=== PATIENT | male | born 1985 | race Caucasian/White ===

== ENCOUNTER 2020-09-16 20:21 | Emergency (ER) | payer OTHER, SELFPAY ==
--- NOTE | ~2020-09-16 | XR_ITS ---
EXAMINATION: XR CHEST CLINICAL INFORMATION: Bilateral lower extremity edema COMPARISON: 02/07/2011 TECHNIQUE: 2 views of the chest were obtained. FINDINGS: The lungs are well expanded. There is no focal consolidation, edema, or effusion. No pneumothorax. The cardiomediastinal silhouette is within normal limits. No acute osseous abnormality. XR/XR chest 2V IMPRESSION: No acute pulmonary finding.
[2020-09-16 20:33] VITALS: BP 167/80; PULSE 107; RESP 20; TEMP 36.8; O2SAT 95; BMI 54.6
[2020-09-16 20:48] LABS: Basophils Percent Auto 0.4 % (0-2); Eosinophils Absolute Auto 0.3 X10*3/uL (0.0-0.4); Hematocrit 36.9 % (42-52); Hemoglobin 11.4 g/dl (14.0-18.0); Imm Gran Abs Auto 0.03 X10*3/uL (0.00-0.03); Imm Gran Pct Auto 0.4 % (0.0-0.4); Lymphocytes Absolute Auto 1.3 X10*3/uL (1.2-4.9); Lymphocytes Percent Auto 15.8 % (20-40); Mean Corpuscular HGB Conc 30.9 g/dl (31.0-36.0); Mean Corpuscular Hemoglobin 26.7 pg (27.0-33.0); Mean Corpuscular Volume 86.4 fL (80-98); Mean Platelet Volume 9.7 fL (9.4-12.4); Monocytes Absolute Auto 0.7 X10*3/uL (0.1-1.2); Monocytes Percent Auto 8.1 % (2-11); Neutrophils Absolute Auto 5.8 X10*3/uL (2.0-8.3); Neutrophils Percent Auto 71.3 % (45-73); Platelet Count 205 X10*3/uL (160-400); Red Blood Count 4.27 X10*6/uL (4.60-5.80); Red Cell Distribution Width 13.7 % (11.0-16.0); White Blood Count 8.2 X10*3/uL (4.8-10.8)
[2020-09-16 20:49] LABS: MANUAL DIFF FLAG NO
[2020-09-16 21:16] LABS: Anion Gap 8 (12-20); Blood Urea Nitrogen 14 mg/dL (9-16); Calcium 8.3 mg/dL (8.4-10.2); Carbon Dioxide 33 mmol/L (22-29); Chloride 103 mmol/L (96-108); Creatinine Clr Calc Pharmacy 207.5; Estimated Glomerular Filt Rate > 60; Glucose Random 151 mg/dL (60-115); Potassium 3.8 mmol/L (3.3-5.1); Sodium 140 mmol/L (135-145)
--- NOTE | 2020-09-17 00:27 | ED.LOWEXIN ---
HPI - Extremity Injury (Lower) General Chief Complaint: Skin/Abscess/Foreign Body Stated Complaint: Foot swelling Source: patient Mode of arrival: ambulatory Limitations: no limitations History of Present Illness HPI Narrative: 34-year-old male with past medical history of morbid obesity and history of cellulitis to the lower extremities presents with left foot swelling and pain as well as dental caries and pain. He does have bilateral lower extremity edema per baseline, has a family history of CHF. He does describe some shortness of breath on exertion but feels that this could be due to body habitus rather than illness. He does not describe any chest pain or pressure, palpitations, fevers, chills, weakness, abdominal pain, abdominal distention, dysuria, and hematuria. Onset (ago): week(s) (About 2 weeks) Place: home Severity: moderate Severity scale (1-10): 5 Relieving factors: nothing Exacerbating factors: weight bearing and palpation Associated symptoms: swelling Other symptoms: none Treatments prior to arrival: NSAIDS Related Data Previous Rx's Medication Instructions Recorded cephalexin 500 mg PO QID 7 Days #28 cap 09/17/20 hydrochlorothiazide 12.5 mg PO DAILY #30 tab 09/17/20 metformin 500 mg PO BID #60 tab 09/17/20 sulfamethoxazole-trimethoprim 1 tab PO Q12H 10 Days #20 tab 09/17/20 [Bactrim DS] Allergies Allergy/AdvReac Type Severity Reaction Status Date / Time clindamycin [CLINDAMYCIN] Allergy Unknown HIVES Unverified 04/18/20 17:55 doxycycline [DOXYCYCLINE] Allergy Unknown HIVES Unverified 04/18/20 17:55 antibiotics Allergy Unknown Uncoded 03/16/12 00:00 clindamycin Allergy Unknown Uncoded 03/16/12 00:00 Clindamycin HCl Allergy Unknown Uncoded 08/19/16 00:00 Review of Systems Review of Systems: Constitutional: No Fever, No Chills ENT/Mouth: No Ear Pain, No Hoarseness, No sore throat Eyes: No Eye Pain, No Swelling, No Redness, No Foreign Body Cardiovascular: No Chest Pain, No SOB Respiratory: No Cough, No Dyspnea Gastrointestinal: No Nausea, No Vomiting, No Diarrhea, No abdominal Pain Genitourinary: No Dysuria, No Hematuria Musculoskeletal: Positive bilateral lower extremity edema, positive left foot pain, No Myalgias, No Joint Swelling Skin: No Skin lacerations, No rash Neuro: No Weakness, No Numbness, No Paresthesias, No Loss of Consciousness, No Dizziness, No Headache Psych: No Anxiety/Panic, No Depression Heme/Lymph: no easy bruising, no Lymphadenopathy Endocrine: No Polyuria, No Polydipsia Yes all other systems are reviewed and are negative [facility] Past Medical History Attestation statement: The following information was validated with the patient. Source: old records reviewed Medical History (Updated 09/17/20 @ 02:20 by Mariangel Lobo NP) Asthma Social History Social History Advance Directives: No Physical Exam Vital Signs: Vital Signs: Last Vital Signs Temp 98.2 F 09/16/20 20:33 Pulse 107 H 09/16/20 20:33 Resp 20 09/16/20 20:33 BP 167/80 H 09/16/20 20:33 Pulse Ox 95 09/16/20 20:33 Body Mass Index 54.6 Appearance: Alert. Oriented X3. No acute distress. Morbidly obese body habitus Eyes: Pupils equal, round and reactive to light. ENT: Pharynx normal. Broken tooth noted to the left lower molars, gingivitis Neck: Normal inspection. Neck supple. CVS: Normal heart rate and rhythm. Pulses normal. Respiratory: No respiratory distress. Breath sounds normal. Abdomen: Soft and nontender. Skin: 2 areas of erythema noted to the dorsal aspect of the left foot, otherwise Skin warm and dry. Normal skin color. Normal skin turgor. Extremities: positive bilateral lower extremity edema per baseline Neuro: No motor deficit. No sensory deficit. Course Course Course Narrative: 34-year-old male presents with pain to the top of his left foot with 2 areas of redness and dental pain. He has not seen a physician in quite some time, and does not have a dentist. He does have a history of cellulitis to left lower extremity, is morbidly obese, has a family history of heart failure. CBC Chem 7, BNP, and EKG troponin ordered. Troponin is negative, glucose is elevated at 151 highly suspicious for diabetes, patient is hypertensive, patient does not have a primary care physician at this time. Will start on hydrochlorothiazide, metformin, and given antibiotics for cellulitis to left lower extremity as well as dental abscess. Patient verbalized understanding of and agrees to plan of care discharge home. He does understand that he must follow up with primary care physician. MDM - Extremity Injury (Lower) MDM Narrative Medical decision making narrative: Cellulitis Medical Records Attestation: I reviewed the patient's medical records. Lab Data Attestation: I reviewed the patient's lab results. Result diagrams: 09/16/20 20:42 09/16/20 20:42 Labs: Lab Results 09/16/20 09/16/20 09/17/20 Range/Units 20:42 20:42 01:00 WBC 8.2 (4.8-10.8) X10*3/uL RBC 4.27 L (4.60-5.80) X10*6/uL Hgb 11.4 L (14.0-18.0) g/dl Hct 36.9 L (42-52) % MCV 86.4 (80-98) fL MCH 26.7 L (27.0-33.0) pg MCHC 30.9 L (31.0-36.0) g/dl RDW 13.7 (11.0-16.0) % Plt Count 205 (160-400) X10*3/uL MPV 9.7 (9.4-12.4) fL Immature Gran % (Auto) 0.4 (0.0-0.4) % Neut % (Auto) 71.3 (45-73) % Lymph % (Auto) 15.8 L (20-40) % [place] % (Auto) 8.1 (2-11) % Eos % (Auto) 4.0 (0-4) % Baso % (Auto) 0.4 (0-2) % Lymph # (Auto) 1.3 (1.2-4.9) X10*3/uL [place] # (Auto) 0.7 (0.1-1.2) X10*3/uL Eos # (Auto) 0.3 (0.0-0.4) X10*3/uL Baso # (Auto) 0.0 (0.0-0.2) X10*3/uL Abs Immat Gran (auto) 0.03 (0.00-0.03) X10*3/uL Absolute Neuts (auto) 5.8 (2.0-8.3) X10*3/uL Absolute Nucleated RBC 0.000 (0.0-0.012) X10*3/uL Nucleated RBC % (auto) 0.0 (0.0-0.2) /100WBC Sodium 140 (135-145) mmol/L Potassium 3.8 (3.3-5.1) mmol/L Chloride 103 (96-108) mmol/L Carbon Dioxide 33 H (22-29) mmol/L Anion Gap 8 L (12-20) BUN 14 (9-16) mg/dL Creatinine 0.88 (0.5-1.4) mg/dL Estim Creat Clear Calc 207.5 Estimated GFR > 60 Random Glucose 151 H (60-115) mg/dL Calcium 8.3 L (8.4-10.2) mg/dL Magnesium 2.2 (1.6-2.6) mg/dL Troponin I High Sens (<3.5-35.0) ng/L B-Natriuretic Peptide (<100) pg/mL 09/17/20 Range/Units 01:00 WBC (4.8-10.8) X10*3/uL RBC (4.60-5.80) X10*6/uL Hgb (14.0-18.0) g/dl Hct (42-52) % MCV (80-98) fL MCH (27.0-33.0) pg MCHC (31.0-36.0) g/dl RDW (11.0-16.0) % Plt Count (160-400) X10*3/uL MPV (9.4-12.4) fL Immature Gran % (Auto) (0.0-0.4) % Neut % (Auto) (45-73) % Lymph % (Auto) (20-40) % [place] % (Auto) (2-11) % Eos % (Auto) (0-4) % Baso % (Auto) (0-2) % Lymph # (Auto) (1.2-4.9) X10*3/uL [place] # (Auto) (0.1-1.2) X10*3/uL Eos # (Auto) (0.0-0.4) X10*3/uL Baso # (Auto) (0.0-0.2) X10*3/uL Abs Immat Gran (auto) (0.00-0.03) X10*3/uL Absolute Neuts (auto) (2.0-8.3) X10*3/uL Absolute Nucleated RBC (0.0-0.012) X10*3/uL Nucleated RBC % (auto) (0.0-0.2) /100WBC Sodium (135-145) mmol/L Potassium (3.3-5.1) mmol/L Chloride (96-108) mmol/L Carbon Dioxide (22-29) mmol/L Anion Gap (12-20) BUN (9-16) mg/dL Creatinine (0.5-1.4) mg/dL Estim Creat Clear Calc Estimated GFR Random Glucose (60-115) mg/dL Calcium (8.4-10.2) mg/dL Magnesium (1.6-2.6) mg/dL Troponin I High Sens 3.6 (<3.5-35.0) ng/L B-Natriuretic Peptide 50 (<100) pg/mL Imaging Data Chest x-ray: Attestation: I personally reviewed and interpreted this imaging study as follows: Radiologist's impression: EXAMINATION: XR CHEST CLINICAL INFORMATION: Bilateral lower extremity edema COMPARISON: 02/07/2011 TECHNIQUE: 2 views of the chest were obtained. FINDINGS: The lungs are well expanded. There is no focal consolidation, edema, or effusion. No pneumothorax. The cardiomediastinal silhouette is within normal limits. No acute osseous abnormality. XR/XR chest 2V IMPRESSION: No acute pulmonary finding. ECG Data Attestation: I personally reviewed and interpreted this ECG as follows: ECG interpretation date: 09/17/20 ECG interpretation time: 02:19 Prior ECG tracings: not available for review Interpretation: Vent. rate 83 BPM NH interval 146 ms QRS duration 88 ms QT/QTc 384/451 ms P-R-T axes 54 36 29 Normal sinus rhythm Normal ECG No previous ECGs available Discharge Plan Discharge Clinical Impression: Dental caries Cellulitis Qualifiers: Site of cellulitis: extremity Site of cellulitis of extremity: lower extremity Laterality: left Qualified Code(s): L03.116 - Cellulitis of left lower limb Hypertension Qualifiers: Hypertension type: essential hypertension Qualified Code(s): I10 - Essential (primary) hypertension Diabetes Qualifiers: Diabetes mellitus type: type 2 Diabetes mellitus nursing home insulin use: without nursing home use Diabetes mellitus complication status: with skin complications Diabetes mellitus complication detail: with other skin complication Qualified Code(s): E11.628 - Type 2 diabetes mellitus with other skin complications Patient Disposition: Home, Self-Care Instructions: Dental Abscess (ED), Cellulitis (ED), Type 2 Diabetes in Adults: New Diagnosis (ED), Hypertension (ED), Toothache (ED), Hypertension and Diabetes (ED), Diabetes and Nutrition (ED), Diabetes and Exercise (ED) Additional Instructions: You were evaluated for pain and swelling to the left foot, this is suspected to be cellulitis. Please take Keflex and Bactrim as directed for cellulitis. Your also evaluated for dental pain. The antibiotics that were prescribed to you for cellulitis will cover for dental. We prescribed hydrochlorothiazide for your hypertension. We prescribed metformin for diabetes. You must follow-up with primary care physician. Please follow-up with your primary care provider. Based on your lower extremity edema you may require a diuretic. Thank you for choosing this emergency department for evaluation. Please follow-up with primary care physician as needed. Return to the emergency department for any new, concerning, or worsening symptoms. Prescriptions: New sulfamethoxazole-trimethoprim [Bactrim DS] 800-160 mg tablet 1 tab PO Q12H 10 Days Qty: 20 RF: 0 cephalexin 500 mg capsule 500 mg PO QID 7 Days Qty: 28 RF: 0 hydrochlorothiazide 12.5 mg tablet 12.5 mg PO DAILY Qty: 30 RF: 0 metformin 500 mg tablet 500 mg PO BID Qty: 60 RF: 0
--- NOTE | 2020-09-17 00:29 | ECG_ITS ---
Test Reason : EDEMA Blood Pressure : / mmHG Vent. Rate : 083 BPM Atrial Rate : 083 BPM P-R Int : 146 ms QRS Dur : 088 ms QT Int : 384 ms P-R-T Axes : 054 036 029 degrees QTc Int : 451 ms Normal sinus rhythm Normal ECG No previous ECGs available Referred By: Mariangel Lobo Electronically Signed By:Oracio Person
[2020-09-17 01:29] LABS: Magnesium 2.2 mg/dL (1.6-2.6)
[2020-09-17 01:34] LABS: B Type Natriuretic Peptide 50 pg/mL (<100); Troponin-I High Sensitivity 3.6 ng/L (<3.5-35.0)
[2020-09-17] MEDS: cephALEXin 500 MG CAPSULE PO (02:19)
[2020-09-17] MEDS: Furosemide 40 MG TABLET PO (02:20)
[2020-09-17 02:21] VITALS: BP 160/78; PULSE 81; RESP 18; O2SAT 96
== END 2020-09-17 02:46 | disposition home or self-care (01) ==
PROVIDERS: Nurse Practitioner Family; Emergency Provider Internal Medicine
DX: L03.116 Cellulitis of left lower limb (principal); I10 Essential (primary) hypertension; K02.9 Dental caries, unspecified; E11.628 Type 2 diabetes mellitus with other skin complications
CPT/HCPCS: 36415; 71046; 80048; 83735; 83880; 84484; 85025; 93005; 96374; 99284

== ENCOUNTER 2020-09-21 22:55 | Emergency (ER) | payer SELFPAY ==
[2020-09-21 22:58] VITALS: BP 199/92; PULSE 87; RESP 18; TEMP 36.6; O2SAT 98; BMI 54.6
--- NOTE | 2020-09-22 00:33 | ED.EXTPRO ---
HPI - Extremity Problem General Chief complaint: Extremity Problem Stated complaint: foot infection Time Seen by Provider: 09/22/20 00:16 Source: patient Mode of arrival: ambulatory Limitations: no limitations History of Present Illness HPI Narrative: Patient comes to emergency room for wound check. Patient states he was seen here on September 17, diagnosed with cellulitis, given Bactrim. Patient states that his legs are cracking, states that they do look much better, less red, less painful, able to move them now, but wanted to get an opinion if the antibiotic is working. Patient denies fever or chills. Patient also complaining of bilateral chronic leg swelling Related Data Previous Rx's Medication Instructions Recorded cephalexin 500 mg PO QID 7 Days #28 cap 09/17/20 hydrochlorothiazide 12.5 mg PO DAILY #30 tab 09/17/20 metformin 500 mg PO BID #60 tab 09/17/20 sulfamethoxazole-trimethoprim 1 tab PO Q12H 10 Days #20 tab 09/17/20 [Bactrim DS] furosemide [Lasix] 40 mg PO BID #6 tab 09/22/20 Allergies Allergy/AdvReac Type Severity Reaction Status Date / Time clindamycin [CLINDAMYCIN] Allergy Unknown HIVES Verified 09/21/20 23:04 doxycycline [DOXYCYCLINE] Allergy Unknown HIVES Verified 09/21/20 23:04 Review of Systems Review of Systems: Constitutional : No Weight loss, No Fever, No Chills, No Night Sweats, No Fatigue, No Malaise ENT/Mouth : No Hearing loss, No Ear Pain, No Nasal Congestion, No Sinus Pain, No Hoarseness, No sore throat, No Rhinorrhea, No Swallowing Difficulty Eyes: No Eye Pain, No Swelling, No Redness, No Foreign Body, No Discharge, No Vision Changes Cardiovascular : No Chest Pain, No SOB, No Dyspnea on Exertion, No Orthopnea, No Edema, No Palpitations Respiratory : No Cough, No Sputum, No Wheezing, No Smoke Exposure, No Dyspnea Gastrointestinal : No Nausea, No Vomiting, No Diarrhea, No Constipation, No abdominal Pain, No Hematochezia, No Melena Genitourinary : no irregular bleeding, No Dysuria, No Urinary Frequency, No Hematuria, No Urinary Incontinence, No Urgency, No Flank Pain, No Urinary Flow Changes, No Hesitancy Musculoskeletal : No joint pain, No Myalgias, No Joint Swelling Skin : Complaining of skin cracking, states the redness nearly resolved Neuro : No Weakness, No Numbness, No Paresthesias, No Loss of Consciousness, No Dizziness, No Headache Psych : No Anxiety/Panic, No Depression, No SI/HI/AH/VH, No Social Issues, Heme/Lymph: No Bruising, No Bleeding,No Lymphadenopathy Endocrine : No Polyuria, No Polydipsia, No Temperature Intolerance PMFSH Past Medical History Medical History Asthma Obesity Social History Social History Advance Directives: No Advance Directives Information Provided: No Physical Exam Vital Signs: Vital Signs: Last Vital Signs Temp 98 F 09/21/20 22:58 Pulse 82 09/22/20 01:03 Resp 16 09/22/20 01:03 BP 148/70 H 09/22/20 01:03 Pulse Ox 97 09/22/20 01:03 Body Mass Index 54.6 Appearance: Alert. Oriented X3. No acute distress. Morbidly obese Eyes: Pupils equal, round and reactive to light. ENT: Pharynx normal. Neck: Normal inspection. Neck supple. No lymph nodes noted. No crepitus CVS: Normal heart rate and rhythm. Pulses normal. Normal S1 and S2 Respiratory: No respiratory distress. Breath sounds normal. No Wheezing. No rales Abdomen: Soft and nontender. No rigidity. No distention. good BS x4 Skin: Skin warm and dry. No erythema in bilateral lower extremities, mild cracking of the skin especially on the left side Extremities: +3 pitting edema bilaterally, no thigh or calf tenderness Neuro: Oriented X 3. No motor deficit. No sensory deficit. Moving all extermities. No slurred speech. Course Course Course Narrative: I discussed with the patient that the white blood cell count is within normal limits, on physical exam it looks like his foot is not infected. I discussed with the patient that he will need Lasix to start getting rid of that fluid. A1c is pending, does not run at night. Patient will follow-up with a new primary care physician, the process has already been started to be seen by a PCP MDM - Extremity (Nontraumatic) Lab Data Result diagrams: 09/22/20 00:53 09/22/20 00:53 Labs: Lab Results 09/22/20 09/22/20 Range/Units 00:53 00:53 WBC 9.3 (4.8-10.8) X10*3/uL RBC 4.25 L (4.60-5.80) X10*6/uL Hgb 11.2 L (14.0-18.0) g/dl Hct 35.8 L (42-52) % MCV 84.2 (80-98) fL MCH 26.4 L (27.0-33.0) pg MCHC 31.3 (31.0-36.0) g/dl RDW 13.6 (11.0-16.0) % Plt Count 227 (160-400) X10*3/uL MPV 10.3 (9.4-12.4) fL Immature Gran % (Auto) 0.4 (0.0-0.4) % Neut % (Auto) 70.4 (45-73) % Lymph % (Auto) 18.8 L (20-40) % [place] % (Auto) 7.5 (2-11) % Eos % (Auto) 2.5 (0-4) % Baso % (Auto) 0.4 (0-2) % Lymph # (Auto) 1.8 (1.2-4.9) X10*3/uL [place] # (Auto) 0.7 (0.1-1.2) X10*3/uL Eos # (Auto) 0.2 (0.0-0.4) X10*3/uL Baso # (Auto) 0.0 (0.0-0.2) X10*3/uL Abs Immat Gran (auto) 0.04 H (0.00-0.03) X10*3/uL Absolute Neuts (auto) 6.6 (2.0-8.3) X10*3/uL Absolute Nucleated RBC 0.000 (0.0-0.012) X10*3/uL Nucleated RBC % (auto) 0.0 (0.0-0.2) /100WBC Sodium 139 (135-145) mmol/L Potassium 3.5 (3.3-5.1) mmol/L Chloride 102 (96-108) mmol/L Carbon Dioxide 29 (22-29) mmol/L Anion Gap 12 (12-20) BUN 10 (9-16) mg/dL Creatinine 0.94 (0.5-1.4) mg/dL Estim Creat Clear Calc 194.2 Estimated GFR > 60 Random Glucose 110 (60-115) mg/dL Calcium 8.9 D (8.4-10.2) mg/dL Discharge Plan Discharge Clinical Impression: Bilateral edema of lower extremity Patient Disposition: Home, Self-Care Instructions: Leg Edema (ED) Prescriptions: New furosemide [Lasix] 40 mg tablet 40 mg PO BID Qty: 6 RF: 0 No Action sulfamethoxazole-trimethoprim [Bactrim DS] 800-160 mg tablet 1 tab PO Q12H 10 Days Qty: 20 RF: 0 cephalexin 500 mg capsule 500 mg PO QID 7 Days Qty: 28 RF: 0 hydrochlorothiazide 12.5 mg tablet 12.5 mg PO DAILY Qty: 30 RF: 0 metformin 500 mg tablet 500 mg PO BID Qty: 60 RF: 0
[2020-09-22 00:58] LABS: Basophils Percent Auto 0.4 % (0-2); Eosinophils Absolute Auto 0.2 X10*3/uL (0.0-0.4); Eosinophils Percent Auto 2.5 % (0-4); Hematocrit 35.8 % (42-52); Hemoglobin 11.2 g/dl (14.0-18.0); Imm Gran Abs Auto 0.04 X10*3/uL (0.00-0.03); Imm Gran Pct Auto 0.4 % (0.0-0.4); Lymphocytes Absolute Auto 1.8 X10*3/uL (1.2-4.9); Lymphocytes Percent Auto 18.8 % (20-40); MANUAL DIFF FLAG NO; Mean Corpuscular HGB Conc 31.3 g/dl (31.0-36.0); Mean Corpuscular Hemoglobin 26.4 pg (27.0-33.0); Mean Corpuscular Volume 84.2 fL (80-98); Mean Platelet Volume 10.3 fL (9.4-12.4); Monocytes Absolute Auto 0.7 X10*3/uL (0.1-1.2); Monocytes Percent Auto 7.5 % (2-11); Neutrophils Absolute Auto 6.6 X10*3/uL (2.0-8.3); Neutrophils Percent Auto 70.4 % (45-73); Platelet Count 227 X10*3/uL (160-400); Red Blood Count 4.25 X10*6/uL (4.60-5.80); Red Cell Distribution Width 13.6 % (11.0-16.0); White Blood Count 9.3 X10*3/uL (4.8-10.8)
[2020-09-22 01:03] VITALS: BP 148/70; PULSE 82; RESP 16; O2SAT 97
[2020-09-22 01:37] LABS: Anion Gap 12 (12-20); Blood Urea Nitrogen 10 mg/dL (9-16); Calcium 8.9 mg/dL (8.4-10.2); Carbon Dioxide 29 mmol/L (22-29); Chloride 102 mmol/L (96-108); Creatinine Clr Calc Pharmacy 194.2; Estimated Glomerular Filt Rate > 60; Glucose Random 110 mg/dL (60-115); Potassium 3.5 mmol/L (3.3-5.1); Sodium 139 mmol/L (135-145)
[2020-09-22 02:58] LABS: Estimated Average Glucose 117 mg/dL; Hemoglobin A1c % 5.7 %
== END 2020-09-22 02:54 | disposition home or self-care (01) ==
PROVIDERS: Emergency Provider Emergency Medicine
DX: R60.0 Localized edema (principal)
CPT/HCPCS: 36415; 80048; 83036; 85025; 99283

== ENCOUNTER 2020-11-07 17:54 | Emergency (ER) | payer SELFPAY ==
--- NOTE | 2020-11-07 20:26 | ED_ITS ---
HPI - Dental/Oral General Chief complaint: Dental/Oral Stated complaint: dental pain' Time Seen by Provider: 11/07/20 20:17 Source: patient Mode of arrival: ambulatory Limitations: no limitations History of Present Illness HPI Narrative: Right lower dental pain x several days. Using Motrin and topical Orajel with continued symptoms. No fevers or chills. Patient tells me he just got health insurance and so is working on getting a dentist Related Data Previous Rx's Medication Instructions Recorded cephalexin 500 mg PO QID 7 Days #28 cap 09/17/20 hydrochlorothiazide 12.5 mg PO DAILY #30 tab 09/17/20 metformin 500 mg PO BID #60 tab 09/17/20 sulfamethoxazole-trimethoprim 1 tab PO Q12H 10 Days #20 tab 09/17/20 [Bactrim DS] furosemide [Lasix] 40 mg PO BID #6 tab 09/22/20 amoxicillin 500 mg PO BID #14 tab 11/07/20 Allergies Allergy/AdvReac Type Severity Reaction Status Date / Time clindamycin [CLINDAMYCIN] Allergy Unknown HIVES Verified 09/21/20 23:04 doxycycline [DOXYCYCLINE] Allergy Unknown HIVES Verified 09/21/20 23:04 Review of Systems Review of Systems: Yes all other systems are reviewed and are negative Constitutional: Constitutional: Reports no additional constitutional complaints, Denies body ache(s), Denies chills, Denies fever(s), Denies headache(s) and Denies weakness Eyes: Eyes: Reports no additional eye complaints and Denies change in vision ENT: Reports system reviewed and no additional complaints, except as documen lizeth, Denies dizziness, Reports otalgia, Denies headache(s), Denies nasal congestion, Denies nasal discharge and Denies neck pain Cardiovascular: Cardiovascular: Reports no additional cardiovascular complaints, Denies chest pain, Denies leg edema and Denies dyspnea Respiratory: Respiratory: Reports no additional respiratory complaints, Denies cough and Denies dyspnea Gastrointestinal: Gastrointestinal: Reports no additional gastrointestinal complaints, Denies abdominal pain, Denies diarrhea, Denies nausea and Denies vomiting Genitourinary: Genitourinary: Denies urinary incontinence Musculoskeletal: Musculoskeletal: Reports no additional musculoskeletal complaints, Denies back pain, Denies arthralgias, Denies joint swelling, Denies neck pain, Denies numbness and Denies tingling Integumentary/Breasts: Skin/Breast: Reports system reviewed and no additional complaints, except as docu and Denies rash Neurologic: Reports system reviewed and no additional complaints, except as documented, Denies Abnormal speech present, Denies dizziness, Denies headache(s), Denies numbness, Denies tingling and Denies weakness PMFSH Past Medical History Attestation statement: The following information was validated with the patient. Source: old records reviewed and nursing notes reviewed Medical History Asthma Obesity Social History Social History Smoking Status: Never smoker Use of substances other than those prescribed or required for medical reasons: Yes Substance Use Type: Marijuana Advance Directives: No Advance Directives Information Provided: Yes Physical Exam Vital Signs: Vital Signs: Last Vital Signs Temp 98.3 F 11/07/20 20:29 Pulse 72 11/07/20 20:29 Resp 18 11/07/20 20:29 BP 165/82 H 11/07/20 20:29 Pulse Ox 98 11/07/20 20:29 Body Mass Index 52.6 Const: General: cooperative, healthy appearing, comfortable and no acute distress Orientation/consciousness: patient oriented x3 Limitations: no limitations HENMT: Head: Yes normal to inspection Ears: hearing grossly normal bilaterally General nose exam: Normal external nose present Face and sinus: Yes normal facial exam Mouth: Normal oral and palatal mucosa present Teeth image: 1. Erythema, swelling. No fluctuance or induration. Extensive dental caries Throat: Yes posterior oropharynx normal, Yes tonsils normal, Yes uvula midline and Yes other (no trismus) Eyes: General: appearance normal, both eyes and all related structures Pupils: Equal, round and reactive pupils present Neck: Neck: Yes normal visual inspection, Yes full ROM, Yes no lymphadenopathy, Yes no meningeal signs and Yes supple Chest: Chest palpation & inspection: normal inspection of the chest Resp: Effort & Inspection: normal respiratory effort Auscultation: clear to auscultation bilaterally Cardio: Rate: regular rate Rhythm: regular rhythm Peripheral pulses: Peripheral pulses 2+ throughout GI: Inspection: Yes normal to inspection Palpation (GI): Soft to palpation and nontender Auscultation: normal bowel sounds Back/Spine/Pelvis: Thoracic/Lumbar Spine: thoracic and lumbar spine normal to inspection Skin: General skin exam: no rashes or lesions noted Neuro: General: patient oriented x3, no meningeal signs, no focal motor deficits and normal sensation to monofilament Cranial nerves: Yes Equal, round and reactive pupils present Cognition (Neuro): normal cognition S peech: No Abnormal speech present Gait exam (Neuro): Normal gait present Motor exam (neuro): 5/5 motor strength present throughout Extrem: General: Yes normal to inspection Course Course Course Narrative: 35 yo male here with dental pain, swelling x several days. Will start on course of antibiotics and have follow-up with dental. Reviewed worrisome signs and symptoms of when to return to the emergency department. Comfortable discharge home. Discharge Plan Discharge Clinical Impression: Dental caries Patient Disposition: Home, Self-Care Instructions: Toothache (ED) Additional Instructions: Salt water gargles Topical oragel See a dentist Prescriptions: New amoxicillin 500 mg tablet 500 mg PO BID Qty: 14 RF: 0 No Action sulfamethoxazole-trimethoprim [Bactrim DS] 800-160 mg tablet 1 tab PO Q12H 10 Days Qty: 20 RF: 0 cephalexin 500 mg capsule 500 mg PO QID 7 Days Qty: 28 RF: 0 hydrochlorothiazide 12.5 mg tablet 12.5 mg PO DAILY Qty: 30 RF: 0 metformin 500 mg tablet 500 mg PO BID Qty: 60 RF: 0 furosemide [Lasix] 40 mg tablet 40 mg PO BID Qty: 6 RF: 0 Referrals: Physician,None [Primary Care Provider] - 2 days Interventions: ED Discharge Assessment Last Done: 11/07/20 20:45 Discharge Date/Time: 11/07/20 20:46
[2020-11-07 20:29] VITALS: BP 165/82; PULSE 72; RESP 18; TEMP 36.8; O2SAT 98; BMI 52.6
== END 2020-11-07 20:46 | disposition home or self-care (01) ==
PROVIDERS: Emergency Provider Emergency Medicine
DX: K08.89 Other specified disorders of teeth and supporting structures (principal); K02.9 Dental caries, unspecified; F12.90 Cannabis use, unspecified, uncomplicated
CPT/HCPCS: 99283

== ENCOUNTER 2023-07-09 18:10 | Emergency (ER) | payer SELFPAY ==
--- NOTE | ~2023-07-09 | US_ITS ---
EXAMINATION: US SCROTUM CLINICAL INFORMATION: Scrotal swelling. COMPARISON: None available. TECHNIQUE: A sonogram of the scrotum was performed assessing davis-scale appearance and color Doppler flow. Spectral Doppler analysis of the arterial and venous flow were performed in the testes bilaterally. FINDINGS: RIGHT: Right testicle measures 3.7 x 2.6 x 2.7 cm, volume 14 mL. No focal testicular parenchymal lesions are visualized. Spectral Doppler analysis of the arterial and venous flow is normal in the right testis. Right epididymal head is normal in size. Mild hydrocele, no varicoceles. Right epididymal Doppler flow is normal. Echogenic material in the right inguinal region possibly fat-containing hernia. LEFT: Left testicle measures 3.9 x 2.6 x 2.6 cm, volume 14.1 mL. No focal testicular parenchymal lesions are visualized. Spectral Doppler analysis of the arterial and venous flow is normal in the left testis. Left epididymal head is normal in size. Mild hydrocele, no varicoceles. Left epididymal Doppler flow is normal. US/US scrotum IMPRESSION: * No suspicious intratesticular mass or lesion. * Mild bilateral small hydroceles. * Echogenic material in the right inguinal region possibly fat-containing hernia.
--- NOTE | ~2023-07-09 | US_ITS ---
EXAMINATION: US SCROTUM CLINICAL INFORMATION: Scrotal swelling. COMPARISON: None available. TECHNIQUE: A sonogram of the scrotum was performed assessing davis-scale appearance and color Doppler flow. Spectral Doppler analysis of the arterial and venous flow were performed in the testes bilaterally. FINDINGS: RIGHT: Right testicle measures 3.7 x 2.6 x 2.7 cm, volume 14 mL. No focal testicular parenchymal lesions are visualized. Spectral Doppler analysis of the arterial and venous flow is normal in the right testis. Right epididymal head is normal in size. Mild hydrocele, no varicoceles. Right epididymal Doppler flow is normal. Echogenic material in the right inguinal region possibly fat-containing hernia. LEFT: Left testicle measures 3.9 x 2.6 x 2.6 cm, volume 14.1 mL. No focal testicular parenchymal lesions are visualized. Spectral Doppler analysis of the arterial and venous flow is normal in the left testis. Left epididymal head is normal in size. Mild hydrocele, no varicoceles. Left epididymal Doppler flow is normal. US/US scrotum doppler IMPRESSION: * No suspicious intratesticular mass or lesion. * Mild bilateral small hydroceles. * Echogenic material in the right inguinal region possibly fat-containing hernia.
--- NOTE | ~2023-07-09 | CT_ITS ---
EXAMINATION: CT ANGIOGRAM OF THE CHEST WITH AND WITHOUT CONTRAST (CT PULMONARY ANGIOGRAM FOR PE) CLINICAL INFORMATION: Reason for Exam SOB, tachycardia, LE swelling COMPARISON: Chest x-ray July 09, 2023 TECHNIQUE: Prior to contrast administration, noncontrast localization images were obtained. Subsequently, multidetector volumetric imaging was performed from the thoracic inlet to below the diaphragms following the administration of 100 mL Omnipaque 350 intravenous contrast. No contrast reaction reported Sagittal, coronal, and MIP oblique sagittal reformatted images were obtained on the CT workstation, uploaded to PACS, and reviewed. This CT examination was performed using dose optimization techniques as appropriate, variously including the following: *Automated exposure control *Adjustment of mA and/or kV according to patient size (this includes techniques or standardized protocols for targeted exams where dose is matched to indication/reason for exam; i.e. extremities or head) *Use of iterative reconstruction technique Total exam dose-length product 370 mGy-cm FINDINGS: QUALITY OF STUDY/CONTRAST BOLUS: Satisfactory. PULMONARY ARTERIES: No pulmonary emboli. THORACIC AORTA: No aneurysm. LUNG: Small focus of consolidation or atelectasis at the dependent posterior right lung base. Lungs are otherwise normally aerated. PLEURA: Small dependent right pleural effusion. MEDIASTINUM: Normal heart size. No pericardial effusion. No hilar or mediastinal lymphadenopathy. No evidence of septal bowing or right heart strain. CORONARY ARTERY CALCIFICATION: None visualized on this study. CHEST WALL/AXILLA: No axillary or internal mammary lymphadenopathy. OSSEOUS STRUCTURES: No acute or suspicious osseous abnormality. Multilevel degenerative spondylosis spine. UPPER ABDOMEN: Unremarkable. No reflux of contrast into the hepatic veins to suggest elevated right heart pressures. CT/CT angio chest PE protocol IMPRESSION: 1. No evidence of pulmonary embolism. 2. Small focus of consolidation or atelectasis at the dependent posterior right lung base. 3. Small dependent right pleural effusion. VTE: negative.
--- NOTE | ~2023-07-09 | XR_ITS ---
EXAMINATION: XR CHEST CLINICAL INFORMATION: Chest pain COMPARISON: Chest 09/17/2020 TECHNIQUE: 2 views of the chest were obtained. FINDINGS: The lungs are expanded with no acute pneumonic process seen. Heart size is borderline normal. Pulmonary vascularity is prominent but no congestion seen. No gross bony abnormality. XR/XR chest 2V IMPRESSION: Mild prominence of pulmonary vascularity but no congestion seen. No change from 09/17/2020
--- NOTE | ~2023-07-09 | US_ITS ---
EXAMINATION: US VENOUS ULTRASOUND WITH DOPPLER LOWER EXTREMITY, BILATERAL CLINICAL INFORMATION: Bilateral neck swelling COMPARISON: None available. TECHNIQUE: Ultrasound of the deep veins is performed from the hip to the calf with compression sonography and color and pulse Doppler assessment. Spectral analysis with color-flow imaging is performed. FINDINGS: RIGHT: There is normal venous compression and respiratory variation and augmented flow. The visualized common femoral vein, superficial femoral vein, profunda femoral vein, popliteal vein, and the trifurcation region shows no evidence of deep venous thrombosis. There is no significant popliteal fossa cyst. Mildly prominent right inguinal lymph node 2.1 cm somewhat thickened cortex 3 mm. LEFT: There is normal venous compression and respiratory variation and augmented flow. The visualized common femoral vein, superficial femoral vein, profunda femoral vein, popliteal vein, and the trifurcation region shows no evidence of deep venous thrombosis. There is no significant popliteal fossa cyst. Mildly prominent left inguinal lymph node 2 cm. Indistinct hilum. If the patient's symptoms persist, followup ultrasound in 5 days 7 days might be of value to exclude proximal propagation from a non-visualized calf vein. US/US venous duplex LE BI IMPRESSION: Exam somewhat limited by patient's body habitus. * No DVT demonstrated in the bilateral lower extremity. * Mildly prominent enlarged bilateral inguinal lymph nodes. Clinical correlation and follow-up recommended.
[2023-07-09 19:05] VITALS: BP 189/112; PULSE 92; RESP 22; TEMP 37.1; O2SAT 97; BMI 64.0
--- NOTE | 2023-07-09 19:09 | ED.GENADULT ---
HPI - General Adult General Chief complaint: General Medical Stated complaint: SOB, leg swelling Time Seen by Provider: 07/09/23 20:36 Source: patient and RN notes reviewed Mode of arrival: ambulatory Limitations: no limitations History of Present Illness HPI narrative: This is a 34-year-old male with past medical history of asthma and morbid obesity presenting to the emergency department for evaluation of shortness of breath x 1.5weeks, bilateral leg swelling times 3 days, and scrotal swelling since yesterday. Patient reports that over the last week and a half he has had increased shortness of breath, worsening with ambulation. He has been using his inhaler with minimal relief. He also reports that he has had bilateral leg swelling, states that he now has scrotal swelling. No testicular pain. No dysuria, hematuria, urinary frequency urgency. No concerns for any sexually transmitted infections. Denies fevers or chills. No cough or sore throat. He states that he has a hx of similar symptoms in the past and was given lasix and symptoms resolved. Denies any other complaints or concerns at this time MD complaint: Shortness of breath Onset (ago): week(s) Radiation: non-radiation Quality: aching Exacerbating factors: none Associated symptoms: denies other symptoms Treatments prior to arrival: none Related Data Previous Rx's Medication Instructions Recorded cephalexin 500 mg capsule 500 mg PO QID 7 days #28 caps 09/17/20 hydrochlorothiazide 12.5 mg tablet 12.5 mg PO DAILY #30 tabs 09/17/20 metformin 500 mg tablet 500 mg PO BID #60 tabs 09/17/20 sulfamethoxazole 800 1 tab PO Q12H 10 days #20 tabs 09/17/20 mg-trimethoprim 160 mg tablet (Bactrim DS) furosemide 40 mg tablet (Lasix) 40 mg PO BID #6 tabs 09/22/20 amoxicillin 500 mg tablet 500 mg PO BID #14 tabs 11/07/20 albuterol sulfate 2.5 mg/0.5 mL 2.5 mg (0.5 mL) inhalation Q20M 07/10/23 solution for nebulization #30 ea albuterol sulfate 90 mcg/actuation 2 puff inhalation QID PRN 07/10/23 aerosol inhaler (ProAir HFA) shortness of breath or wheezing #6.7 grams furosemide 40 mg tablet (Lasix) 40 mg PO DAILY 5 days #5 tabs 07/10/23 potassium chloride 20 mEq 20 meq PO DAILY 5 days #5 tabs 07/10/23 tablet,extended release prednisone 20 mg tablet 40 mg (2 x 20 mg) PO DAILY 5 days 07/10/23 #10 tabs Allergies Allergy/AdvReac Type Severity Reaction Status Date / Time clindamycin [CLINDAMYCIN] Allergy Unknown HIVES Verified 07/09/23 19:05 doxycycline [DOXYCYCLINE] Allergy Unknown HIVES Verified 07/09/23 19:05 Review of Systems Review of Systems: Yes all other systems are reviewed and are negative Constitutional: Constitutional: Reports as per [facility] Past Medical History Attestation statement: The following information was validated with the patient. Medical History Obesity Asthma Social History Social History Substance Use Type: Marijuana Advance Directives: No Advance Directives Information Provided: No Physical Exam ED Vital Signs: Vital Signs - 24 hr 07/09/23 19:05 07/09/23 21:20 07/09/23 22:53 Temperature 98.8 F 98.4 F Pulse Rate 92 92 91 Respiratory Rate 22 H 19 18 Blood Pressure 189/112 H Pulse Oximetry 97 97 Oxygen Delivery Method Room Air Room Air 07/10/23 01:45 Temperature Pulse Rate 82 Respiratory Rate 19 Blood Pressure 187/100 H Pulse Oximetry 94 Oxygen Delivery Method Room Air BMI result Body Mass Index 64.0 Const General: cooperative, comfortable and no acute distress Orientation/consciousness: patient oriented x3 Limitations: no limitations [facility] Head: Yes normal to inspection, Yes normocephalic and Yes atraumatic Ears: hearing grossly normal bilaterally General nose exam: Normal external nose present Face and sinus: Yes normal facial exam Mouth: Normal oral and palatal mucosa present, oropharynx normal and moist mucous membranes Throat: Yes posterior oropharynx normal Eyes General: appearance normal, both eyes and all related structures Eyelids: Yes eyelids normal Conjunctivae: conjunctivae normal Sclerae: sclerae normal Pupils: Equal, round and reactive pupils present EOM: EOMs intact bilaterally Neck Neck: Yes normal visual inspection, Yes full ROM and Yes no lymphadenopathy Lymphatic: no lymphadenopathy noted Chest Chest palpation & inspection: normal inspection of the chest Resp Effort & Inspection: normal respiratory effort and able to speak in complete sentences Auscultation: clear to auscultation bilaterally, no crackles, no rales, no rhonchi and no wheezes Cardio Rate: regular rate Rhythm: regular rhythm Heart sounds: S1 normal heart sound present and S2 normal heart sound present GI Inspection: Yes normal to inspection Other: examination performed with bottle booth attendant, LIZZY Celestin present at all times. Scrotum is edematous, non erythematous, with scaling, dry, peeling skin. Skin General skin exam: no rashes or lesions noted Trauma: no lacerations or abrasions Wounds: no wounds Neuro General: patient oriented x3 and moves all extremities Cranial nerves: Yes Equal, round and reactive pupils present Extrem Other: 3+ pitting edema noted to bilateral lower extremities, no calf tenderness. No erythema noted. General: Yes normal to inspection Right upper extremity: normal to inspection Left upper extremity: normal to inspection Right lower extremity: normal to inspection Left lower extremity: normal to inspection Course Course Course Narrative: 37-year-old male presents for evaluation of leg swelling, shortness of breath, cough. He reports leg swelling up to his waist and scrotal swelling. Denies any testicular pain. Most consistent with dependent edema therefore will withhold ultrasound of scrotum is a does not seem consistent with torsion. Plan for labs, chest x-ray Reevaluation(s) Reevaluation #1: CTA chest negative, US scotum revealing hydroceles, no torsion. Time: 01:25 Reevaluation #2: Discussed this case with my attending physician, Dr. Fernandez. Walking O2 sat 94% on room air. Long discussion with patient in regards to his current workup today. Patient has dependent edema, unclear of what the etiology is. Patient has no proteinuria, and BNP is within normal limits. I discussed with patient that we can attempt to admit him for further diagnostic workup however patient would like to be discharged on Lasix. Patient reports that if his symptoms worsens, to please return to the emergency room. Patient understands and agrees with plan. Patient given Lasix, potassium, albuterol inhaler and nebulizer. Patient also given referral to manufacturing finance manager. Patient understands and agrees with plan. Patient stable for discharge. Time: 01:47 Medications Administered Discontinued Medications Generic Name Dose Route Start Last Admin Trade Name Freq PRN Reason Stop Dose Admin Albuterol/Ipratropium 3 ml 07/09/23 22:47 07/09/23 22:51 Albuterol/Iprat 2.5/0.5mg 3 Ml Ampul.Neb INHALE 07/09/23 22:48 3 ml ONCE ONE Administration Furosemide 40 mg 07/10/23 01:33 07/10/23 01:43 Furosemide 40 Mg/4 Ml Vial IVPUSH 07/10/23 01:34 40 mg STAT STA Administration Protocol Iohexol 100 ml 07/10/23 00:20 07/10/23 00:21 Iohexol 350 Mg/Ml 100 Ml Infus..Btl IV 07/10/23 00:21 100 ml ONCE ONE Administration Medical Decision Making Medical Decision Making [facility] Narrative: This is a 37-year-old male, the history of asthma, presenting to the emergency department for evaluation of shortness breath, cough, scrotal swelling, and leg swelling. Pressure 189/112, patient not hypoxic. Lungs diminished throughout all lung dawkins, some expiratory phase wheezing noted. Scrotum is also edematous, likely due to dependent edema, scrotum is nontender Does not appear to be infectious. Patient is tachycardic during all interviews, tachycardic in the 110s, 115 with shortness of breath. He has had no chest pain. Given morbid obesity, consideration for PE. Plan: Labs, chest x-ray, ultrasound lower extremities and scrotal ultrasound Differential Diagnosis Differential Diagnoses: The differential diagnosis associated with the presentation includes Dependent edema, DVT, PE, pneumonia, CHF Lab Data [facility] Lab Attestation statement: I reviewed the patient's lab results. Normocytic anemia noted with hemoglobin and hematocrit at 11.5/37.9, appears to be around his baseline. 07/09/23 19:19 07/09/23 19:19 Labs: Lab Results 07/09/23 07/09/23 07/09/23 Range/Units 19:19 21:34 22:37 WBC 10.4 (4.8-10.8) X10*3/uL RBC 4.53 L (4.60-5.80) X10*6/uL Hgb 11.5 L (14.0-18.0) g/dl Hct 37.9 L (42.0-52.0) % MCV 83.7 (80.0-98.0) fL MCH 25.4 L (27.0-33.0) pg MCHC 30.3 L (31.0-36.0) g/dl RDW 14.7 (11.0-16.0) % Plt Count 239 (160-400) X10*3/uL MPV 10.0 (9.4-12.4) fL Immature Gran % (Auto) 0.6 H (0.0-0.4) % Neut % (Auto) 76.5 H (45-73) % Lymph % (Auto) 12.8 L (20-40) % Haines % (Auto) 6.2 (2-11) % Eos % (Auto) 3.5 (0-4) % Baso % (Auto) 0.4 (0-2) % Lymph # (Auto) 1.3 (1.2-4.9) X10*3/uL Haines # (Auto) 0.7 (0.1-1.2) X10*3/uL Eos # (Auto) 0.4 (0.0-0.4) X10*3/uL Baso # (Auto) 0.0 (0.0-0.2) X10*3/uL Abs Immat Gran (auto) 0.06 H (0.00-0.03) X10*3/uL Absolute Neuts (auto) 8.0 (2.0-8.3) x10*3/uL Absolute Nucleated RBC 0.000 (0.0-0.012) X10*3/uL Nucleated RBC % (auto) 0.0 (0.0-0.2) /100WBC PT 13.5 H (11.1-13.3) SEC INR 1.1 (0.9-1.1) Sodium 141 (135-145) mmol/L Potassium 3.8 (3.3-5.1) mmol/L Chloride 109 H (96-108) mmol/L Carbon Dioxide 26 (22-29) mmol/L Anion Gap 10 L (12-20) BUN 9 (9-16) mg/dL Creatinine 0.76 (0.5-1.4) mg/dL Estim Creat Clear Calc 250.9 Estimated GFR > 60 Random Glucose 170 H (60-115) mg/dL Calcium 9.1 (8.4-10.2) mg/dL Total Bilirubin 0.6 (0.0-1.0) mg/dL AST 20 (5-37) U/L ALT 22 (0-40) U/L Alkaline Phosphatase 95 (39-117) U/L B-Natriuretic Peptide 39 (<100) pg/mL Total Protein 7.1 (6.5-8.0) g/dL Albumin 3.7 (3.5-5.0) g/dL Lipase 7 L (8-78) U/L TSH 1.01 (0.32-4.0) uIU/mL Urine Color Yellow Urine Appearance Clear Urine pH 6.0 (5.0-9.0) Ur Specific Willard 1.020 (1.005-1.025) Urine Protein Negative (Neg-Trace) mg/dL Urine Glucose (UA) Negative (Negative) mg/dL Urine Ketones Negative (Negative) mg/dL Urine Blood Negative (Negative) Urine Nitrite Negative (Negative) Ur Leukocyte Esterase Negative (Negative) Urine RBC 0-2 (0-2) /HPF Urine WBC 0-5 (0-5) /HPF Ur Squamous Epith Cells 0-2 (0-2) /HPF Urine Bacteria None Seen (None Seen) Hyaline Casts 0-2 (0-2) /LPF Influenza Type A (PCR) (Negative) Influenza Type B (PCR) (Negative) RSV RNA Qual (PCR) (Negative) SARS-CoV-2 RNA (RT-PCR) (Negative) 07/10/23 Range/Units 01:33 WBC (4.8-10.8) X10*3/uL RBC (4.60-5.80) X10*6/uL Hgb (14.0-18.0) g/dl Hct (42.0-52.0) % MCV (80.0-98.0) fL MCH (27.0-33.0) pg MCHC (31.0-36.0) g/dl RDW (11.0-16.0) % Plt Count (160-400) X10*3/uL MPV (9.4-12.4) fL Immature Gran % (Auto) (0.0-0.4) % Neut % (Auto) (45-73) % Lymph % (Auto) (20-40) % Haines % (Auto) (2-11) % Eos % (Auto) (0-4) % Baso % (Auto) (0-2) % Lymph # (Auto) (1.2-4.9) X10*3/uL Haines # (Auto) (0.1-1.2) X10*3/uL Eos # (Auto) (0.0-0.4) X10*3/uL Baso # (Auto) (0.0-0.2) X10*3/uL Abs Immat Gran (auto) (0.00-0.03) X10*3/uL Absolute Neuts (auto) (2.0-8.3) x10*3/uL Absolute Nucleated RBC (0.0-0.012) X10*3/uL Nucleated RBC % (auto) (0.0-0.2) /100WBC PT (11.1-13.3) SEC INR (0.9-1.1) Sodium (135-145) mmol/L Potassium (3.3-5.1) mmol/L Chloride (96-108) mmol/L Carbon Dioxide (22-29) mmol/L Anion Gap (12-20) BUN (9-16) mg/dL Creatinine (0.5-1.4) mg/dL Estim Creat Clear Calc Estimated GFR Random Glucose (60-115) mg/dL Calcium (8.4-10.2) mg/dL Total Bilirubin (0.0-1.0) mg/dL AST (5-37) U/L ALT (0-40) U/L Alkaline Phosphatase (39-117) U/L B-Natriuretic Peptide (<100) pg/mL Total Protein (6.5-8.0) g/dL Albumin (3.5-5.0) g/dL Lipase (8-78) U/L TSH (0.32-4.0) uIU/mL Urine Color Urine Appearance Urine pH (5.0-9.0) Ur Specific Willard (1.005-1.025) Urine Protein (Neg-Trace) mg/dL Urine Glucose (UA) (Negative) mg/dL Urine Ketones (Negative) mg/dL Urine Blood (Negative) Urine Nitrite (Negative) Ur Leukocyte Esterase (Negative) Urine RBC (0-2) /HPF Urine WBC (0-5) /HPF Ur Squamous Epith Cells (0-2) /HPF Urine Bacteria (None Seen) Hyaline Casts (0-2) /LPF Influenza Type A (PCR) NEGATIVE (Negative) Influenza Type B (PCR) NEGATIVE (Negative) RSV RNA Qual (PCR) NEGATIVE (Negative) SARS-CoV-2 RNA (RT-PCR) NEGATIVE (Negative) Radiology Impression Discussion of test interpretation with radiology: I have reviewed the radiologist's reading. Radiologist Impression: EXAMINATION: CT ANGIOGRAM OF THE CHEST WITH AND WITHOUT CONTRAST (CT PULMONARY ANGIOGRAM FOR PE) CLINICAL INFORMATION: Reason for Exam SOB, tachycardia, LE swelling COMPARISON: Chest x-ray July 09, 2023 TECHNIQUE: Prior to contrast administration, noncontrast localization images were obtained. Subsequently, multidetector volumetric imaging was performed from the thoracic inlet to below the diaphragms following the administration of 100 mL Omnipaque 350 intravenous contrast. No contrast reaction reported Sagittal, coronal, and MIP oblique sagittal reformatted images were obtained on the CT workstation, uploaded to PACS, and reviewed. This CT examination was performed using dose optimization techniques as appropriate, variously including the following: *Automated exposure control *Adjustment of mA and/or kV according to patient size (this includes techniques or standardized protocols for targeted exams where dose is matched to indication/reason for exam; i.e. extremities or head) *Use of iterative reconstruction technique Total exam dose-length product 370 mGy-cm FINDINGS: QUALITY OF STUDY/CONTRAST BOLUS: Satisfactory. PULMONARY ARTERIES: No pulmonary emboli. THORACIC AORTA: No aneurysm. LUNG: Small focus of consolidation or atelectasis at the dependent posterior right lung base. Lungs are otherwise normally aerated. PLEURA: Small dependent right pleural effusion. MEDIASTINUM: Normal heart size. No pericardial effusion. No hilar or mediastinal lymphadenopathy. No evidence of septal bowing or right heart strain. CORONARY ARTERY CALCIFICATION: None visualized on this study. CHEST WALL/AXILLA: No axillary or internal mammary lymphadenopathy. OSSEOUS STRUCTURES: No acute or suspicious osseous abnormality. Multilevel degenerative spondylosis spine. UPPER ABDOMEN: Unremarkable. No reflux of contrast into the hepatic veins to suggest elevated right heart pressures. CT/CT angio chest PE protocol IMPRESSION: 1. No evidence of pulmonary embolism. 2. Small focus of consolidation or atelectasis at the dependent posterior right lung base. 3. Small dependent right pleural effusion. VTE: negative. Dictated By: Cam Romero MD EXAMINATION: XR CHEST CLINICAL INFORMATION: Chest pain COMPARISON: Chest 09/17/2020 TECHNIQUE: 2 views of the chest were obtained. FINDINGS: The lungs are expanded with no acute pneumonic process seen. Heart size is borderline normal. Pulmonary vascularity is prominent but no congestion seen. No gross bony abnormality. XR/XR chest 2V IMPRESSION: Mild prominence of pulmonary vascularity but no congestion seen. No change from 09/17/2020 Dictated By: Jaspal Pond MD Discharge Plan Discharge Clinical Impression: Dependent edema, Hydrocele, Asthma Patient Disposition: Home, Self-Care Instructions: Leg Edema (ED) Additional Instructions: You were seen in the emergency department due to swelling in your legs and scrotum. Your ultrasound of your legs not show a blood clot, your scrotal ultrasound showed hydroceles. You have swelling in your legs which we are giving you a medication called Lasix to help get rid of this fluid. It is unclear what is causing you to have this symptom, please follow-up with your primary care physician for further workup. If any new or worsening symptoms occur including but not limited to chest pain or shortness breath, please return for re-evaluation Prescriptions: New furosemide [Lasix] 40 mg tablet 40 mg PO DAILY 5 Days Qty: 5 0RF potassium chloride 20 mEq tablet extended release 20 meq PO DAILY 5 Days Qty: 5 0RF albuterol sulfate [ProAir HFA] 90 mcg/actuation HFA aerosol inhaler 2 puff inhalation QID PRN (Reason: shortness of breath or wheezing) Qty: 6.7 0RF albuterol sulfate 2.5 mg/0.5 mL solution for nebulization 2.5 mg inhalation Q20M Qty: 30 0RF Rx Instructions: for up to 3 doses prednisone 20 mg tablet 40 mg PO DAILY 5 Days Qty: 10 0RF No Action sulfamethoxazole-trimethoprim [Bactrim DS] 800-160 mg tablet 1 tab PO Q12H 10 Days Qty: 20 0RF cephalexin 500 mg capsule 500 mg PO QID 7 Days Qty: 28 0RF hydrochlorothiazide 12.5 mg tablet 12.5 mg PO DAILY Qty: 30 0RF metformin 500 mg tablet 500 mg PO BID Qty: 60 0RF furosemide [Lasix] 40 mg tablet 40 mg PO BID Qty: 6 0RF amoxicillin 500 mg tablet 500 mg PO BID Qty: 14 0RF Referrals: [facility] [place] Pulmonology Services [Provider Group] [facility] [place] Urology Services [Provider Group] Discharge Date/Time: 07/10/23 02:40
[2023-07-09 19:24] LABS: MANUAL DIFF FLAG NO
[2023-07-09 19:31] LABS: Basophils Percent Auto 0.4 % (0-2); Eosinophils Absolute Auto 0.4 X10*3/uL (0.0-0.4); Eosinophils Percent Auto 3.5 % (0-4); Hematocrit 37.9 % (42.0-52.0); Hemoglobin 11.5 g/dl (14.0-18.0); Imm Gran Abs Auto 0.06 X10*3/uL (0.00-0.03); Imm Gran Pct Auto 0.6 % (0.0-0.4); Lymphocytes Absolute Auto 1.3 X10*3/uL (1.2-4.9); Lymphocytes Percent Auto 12.8 % (20-40); Mean Corpuscular HGB Conc 30.3 g/dl (31.0-36.0); Mean Corpuscular Hemoglobin 25.4 pg (27.0-33.0); Mean Corpuscular Volume 83.7 fL (80.0-98.0); Monocytes Absolute Auto 0.7 X10*3/uL (0.1-1.2); Monocytes Percent Auto 6.2 % (2-11); Neutrophils Percent Auto 76.5 % (45-73); Platelet Count 239 X10*3/uL (160-400); Red Blood Count 4.53 X10*6/uL (4.60-5.80); Red Cell Distribution Width 14.7 % (11.0-16.0); White Blood Count 10.4 X10*3/uL (4.8-10.8)
[2023-07-09 19:39] LABS: Alanine Aminotransferase 22 U/L (0-40); Albumin Level 3.7 g/dL (3.5-5.0); Alkaline Phosphatase 95 U/L (39-117); Anion Gap 10 (12-20); Aspartate Amino Transferase 20 U/L (5-37); Bilirubin Total 0.6 mg/dL (0.0-1.0); Blood Urea Nitrogen 9 mg/dL (9-16); Calcium 9.1 mg/dL (8.4-10.2); Carbon Dioxide 26 mmol/L (22-29); Chloride 109 mmol/L (96-108); Creatinine Clr Calc Pharmacy 250.9; Estimated Glomerular Filt Rate > 60; Glucose Random 170 mg/dL (60-115); Lipase 7 U/L (8-78); Potassium 3.8 mmol/L (3.3-5.1); Sodium 141 mmol/L (135-145); Total Protein 7.1 g/dL (6.5-8.0)
[2023-07-09 19:45] LABS: B Type Natriuretic Peptide 39 pg/mL (<100)
--- NOTE | 2023-07-09 20:29 | PC.NURSE ---
pt attempted to provide urine sample. pt returned to exam room 5 where he was noted to be diaphoretic, and short of breath- pt SpO2 93-94% on RA sitting. improved to 96-98% on RA in semi-ahn position. pt changed into hospital attiRe 20G Iv placed in R- AC, restaurant culinary manager applied- awaiting XR result and provider eval call lynn within reach
[2023-07-09 21:20] VITALS: PULSE 92; RESP 19; TEMP 36.9; O2SAT 97
[2023-07-09 21:45] LABS: INTERNATIONAL NORM RATIO 1.1 (0.9-1.1); Prothrombin Time 13.5 SEC (11.1-13.3)
[2023-07-09 22:49] LABS: Appearance Urine Clear; Color Urine Yellow; Glucose Urine UA Negative (Negative); Leukocyte Esterase Urine Negative (Negative); Nitrite Urine Negative (Negative); Urine Blood Negative (Negative); Urine Ketones Negative (Negative); Urine Protein Negative (Neg-Trace)
[2023-07-09] MEDS: Albuterol/Iprat 2.5/0.5MG 3 ML AMPUL.NEB INHALE (22:51)
[2023-07-09 22:52] LABS: Bacteria Urine None Seen (None Seen); Hyaline Casts Urine 0-2 /LPF (0-2); RBC Urine 0-2 /HPF (0-2); Squamous Epithelial Cell Urine 0-2 /HPF (0-2); WBC Urine 0-5 /HPF (0-5)
[2023-07-09 22:53] VITALS: PULSE 91; RESP 18; O2SAT 97
[2023-07-10] MEDS: iohexoL 350 MG/ML 100 ML INFUS..BTL IV (00:21)
[2023-07-10] MEDS: Furosemide 40 MG/4 ML VIAL IVPUSH (01:43)
[2023-07-10 01:45] VITALS: BP 187/100; PULSE 82; RESP 19; O2SAT 94
--- NOTE | 2023-07-10 01:55 | PC.NURSE ---
patient amubalted down hallway about 25 feet, o2 sat monitoring on room air, patient sats stayed between 91 and 94% during ambulation
[2023-07-10 02:10] LABS: Thyroid Stimulating Hormone 1.01 uIU/mL (0.32-4.0)
[2023-07-10 02:18] LABS: Influenza A PCR NEGATIVE (Negative); Influenza B PCR NEGATIVE (Negative); Resp Syncy Virus RNA Qual PCR NEGATIVE (Negative); SARS COV2 PCR INHOUSE NEGATIVE (Negative)
== END 2023-07-10 02:40 | disposition home or self-care (01) ==
PROVIDERS: Physician Assistant; Physician Assistant Medical; Emergency Provider Emergency Medicine
DX: R06.02 Shortness of breath (principal); R60.0 Localized edema; N43.3 Hydrocele, unspecified; R07.89 Other chest pain; N50.89 Other specified disorders of the male genital organs; R00.0 Tachycardia, unspecified; M54.2 Cervicalgia; J45.909 Unspecified asthma, uncomplicated; Z20.822 Contact with and (suspected) exposure to COVID-19; Z20.828 Contact with and (suspected) exposure to other viral communicable diseases; Z79.899 Other long term (current) drug therapy
CPT/HCPCS: 0241U; 36415; 71046; 71275; 76870; 80053; 81001; 83690; 83880; 84443; 85025; 85610; 93970; 93975; 94640; 96374; 99284; J1940; Q9967

== ENCOUNTER 2023-09-13 09:08 | Emergency (ER) | payer SELFPAY ==
--- NOTE | ~2023-09-13 | US_ITS ---
EXAMINATION: US VENOUS ULTRASOUND WITH DOPPLER LOWER EXTREMITY, BILATERAL CLINICAL INFORMATION: Pain, swelling COMPARISON: None available. TECHNIQUE: Ultrasound of the deep veins is performed from the hip to the calf with compression sonography and color and pulse Doppler assessment. Spectral analysis with color-flow imaging is performed. Extremely limited study due to patient body habitus. FINDINGS: RIGHT: There is normal venous compression and respiratory variation and augmented flow. The visualized common femoral vein, superficial femoral vein, profunda femoral vein, popliteal vein, and posterior tibial vein no evidence of deep venous thrombosis. The peroneal vein is not seen. LEFT: There is normal venous compression and respiratory variation and augmented flow. The visualized common femoral vein, superficial femoral vein, profunda femoral vein, popliteal vein, and the posterior tibial vein shows no evidence of deep venous thrombosis. The peroneal vein is not seen. US/US venous duplex LE BI IMPRESSION: No DVT demonstrated in the right and left lower extremity.
--- NOTE | ~2023-09-13 | XR_ITS ---
EXAMINATION: XR CHEST CLINICAL INFORMATION: Difficulty breathing. COMPARISON: CXR from 07/09/2023. Chest CT from 07/10/2023. TECHNIQUE: Frontal view of the chest was obtained. FINDINGS: Lungs are well expanded. A linear opacity in the right lung apex appears to represent atelectasis. No consolidation, pleural effusion or pneumothorax. Cardiac silhouette is in the normal size range. The prominence of central pulmonary vessels remain similar in appearance compared to 07/09/2023. No overt edema. The visualized bones are intact. XR/XR chest 1V IMPRESSION: There appears to be pulmonary vascular congestion without overt edema.
[2023-09-13 09:13] VITALS: BP 219/118; PULSE 89; RESP 20; TEMP 36.9; O2SAT 97; BMI 65.6
--- NOTE | 2023-09-13 09:20 | ECG_ITS ---
Test Reason : DIFF BREATHING Blood Pressure : / mmHG Vent. Rate : 090 BPM Atrial Rate : 090 BPM P-R Int : 152 ms QRS Dur : 092 ms QT Int : 398 ms P-R-T Axes : 054 028 045 degrees QTc Int : 486 ms Normal sinus rhythm Prolonged QT Abnormal ECG When compared with ECG of 17-SEP-2020 02:19, Non-specific change in ST segment in Lateral leads Referred By: Nova Fernandez Electronically Signed By:Oracio Person
--- NOTE | 2023-09-13 09:46 | ED.SOB ---
HPI - SOB/Dyspnea General Chief Complaint: Dyspnea Stated Complaint: R leg swelling Time Seen by Provider: 09/13/23 09:21 Source: patient Mode of arrival: ambulatory Limitations: no limitations History of Present Illness HPI Narrative: 37 yo male who does not have current health insurance or a pending open [place] application so he doesn't have a PCP has known LE edema, asthma was seen here in July - ran out of inhaler, c/o leg swelling, dyspnea and scrotal swelling. He responded well to lasix and INH / prednisone. He returns for 1 week [facility]ILL[facility], recurrent edema and running out of inhaler. He has no chest pain. He states he has anxiety when he comes here. MD elicited complaint: shortness of breath Pertinent past history: asthma Onset (ago): week(s) (1) Context: occurred during exertion Timing: progressively worsening Severity: moderate Exacerbating factors: lying flat and exertion Relieving factors: rest Known history of: asthma Associated symptoms: other (edema, swelling to scrotum) Treatment prior to arrival: none Related Data Previous Rx's Medication Instructions Recorded cephalexin 500 mg capsule 500 mg PO QID 7 days #28 caps 09/17/20 hydrochlorothiazide 12.5 mg tablet 12.5 mg PO DAILY #30 tabs 09/17/20 metformin 500 mg tablet 500 mg PO BID #60 tabs 09/17/20 sulfamethoxazole 800 1 tab PO Q12H 10 days #20 tabs 09/17/20 mg-trimethoprim 160 mg tablet (Bactrim DS) furosemide 40 mg tablet (Lasix) 40 mg PO BID #6 tabs 09/22/20 amoxicillin 500 mg tablet 500 mg PO BID #14 tabs 11/07/20 albuterol sulfate 2.5 mg/0.5 mL 2.5 mg (0.5 mL) inhalation Q20M 07/10/23 solution for nebulization #30 ea albuterol sulfate 90 mcg/actuation 2 puff inhalation QID PRN 07/10/23 aerosol inhaler (ProAir HFA) shortness of breath or wheezing #6.7 grams furosemide 40 mg tablet (Lasix) 40 mg PO DAILY 5 days #5 tabs 07/10/23 potassium chloride 20 mEq 20 meq PO DAILY 5 days #5 tabs 07/10/23 tablet,extended release prednisone 20 mg tablet 40 mg (2 x 20 mg) PO DAILY 5 days 07/10/23 #10 tabs albuterol sulfate 90 mcg/actuation 2 puff inhalation QID PRN 09/13/23 aerosol inhaler shortness of breath or wheezing #6.7 grams furosemide 40 mg tablet (Lasix) 40 mg PO DAILY #30 tabs 09/13/23 hydroxyzine HCl 25 mg tablet 25 mg PO BID PRN anxiety #20 tabs 09/13/23 prednisone 20 mg tablet 40 mg (2 x 20 mg) PO DAILY 5 days 09/13/23 #10 tabs Allergies Allergy/AdvReac Type Severity Reaction Status Date / Time clindamycin [CLINDAMYCIN] Allergy Unknown HIVES Verified 09/13/23 09:20 doxycycline [DOXYCYCLINE] Allergy Unknown HIVES Verified 09/13/23 09:20 Review of Systems Review of Systems: Constitutional : No Fever, No Chills ENT/Mouth : No sore throat, No Rhinorrhea, No Swallowing Difficulty Eyes: No Eye Pain, No Swelling, No Redness Cardiovascular : No Chest Pain, positive SOB, pos Orthopnea, positive Edema Respiratory : No Cough, No Sputum, No Wheezing, positive dyspnea Gastrointestinal : No Nausea, No Vomiting, No Diarrhea, No abdominal Pain, No Hematochezia, No Melena Genitourinary : No Dysuria, No Urinary Frequency, No Hematuria Musculoskeletal : No joint pain, No Myalgias Skin : No Skin Lesions, No rash Neuro : No Weakness, No Numbness, No Dizziness, No Headache Psych : pos Anxiety/Panic, No Depression Heme/Lymph: No Bruising, No Lymphadenopathy Endocrine : No Polyuria, No Polydipsia All other systems reviewed and are negative PMFSH Past Medical History Attestation statement: The following information was validated with the patient. Source: old records reviewed Medical History Obesity Asthma Social History Social History (Updated 09/13/23 @ 09:56 by Nova Fernandez DO) Patient Tobacco Use Status: Never used Tobacco Smoked in Last 30 Days: No Use of substances other than those prescribed or required for medical reasons: No Substance Use Type: Marijuana Advance Directives: No Advance Directives Information Provided: No Physical Exam Vital Signs: Vital Signs: Last Vital Signs Temp 97.9 F 09/13/23 10:20 Pulse 87 09/13/23 10:20 Resp 16 09/13/23 10:20 BP 182/92 H 09/13/23 10:20 Pulse Ox 94 09/13/23 10:20 O2 Del Method Room Air 09/13/23 10:20 BMI result Body Mass Index 65.6 Appearance: Alert. Oriented X3. No acute distress. Anxious Eyes: Pupils equal, round and reactive to light. ENT: Pharynx normal. Neck: Normal inspection. Neck supple. CVS: Normal heart rate and rhythm. Pulses normal. Respiratory: No respiratory distress. Breath sounds diminished Abdomen: Soft and nontender. Skin: Skin warm and dry. Normal skin color. Normal skin turgor. Extremities: 2+pitting lower extremity edema up to scrotum no signs of cellulitis. No calf ttp Neuro: Oriented X 3. No motor deficit. No sensory deficit. Medications Administered Discontinued Medications Generic Name Dose Route Start Last Admin Trade Name Freq PRN Reason Stop Dose Admin Albuterol/Ipratropium 3 ml 09/13/23 09:46 09/13/23 09:49 Albuterol/Iprat 2.5/0.5mg 3 Ml Ampul.Neb INHALE 09/13/23 09:47 3 ml ONCE ONE Administration Furosemide 40 mg 09/13/23 09:37 09/13/23 09:49 Furosemide 40 Mg/4 Ml Vial IVPUSH 09/13/23 09:38 40 mg STAT STA Administration Protocol Lorazepam 1 mg 09/13/23 09:37 09/13/23 09:49 Lorazepam 1 Mg Tablet PO 09/13/23 09:38 1 mg ONCE ONE Administration Methylprednisolone Sodium Succinate 60 mg 09/13/23 09:37 09/13/23 09:49 Methylprednisolone Sod Succ 125 Mg/2 Ml Vial IVPUSH 09/13/23 09:38 60 mg ONCE ONE Administration Medical Decision Making Medical Decision Making MDM Narrative: 37 yo male with PMH of asthma ran out of inhaler, chronic edema with hx of responding to lasix with normal BNP - now here today with recurrence of symptoms ran out of inhaler, did well with lasix but has no PCP to prescribe it. Had full workup last time he was here in July - BNP negative, TSH normal, DVT negative CXR negative at this time will repeat labs, DVT study, bronch protocol, IV steroids and IV lasix. He has no signs of infection and he is able to urinate. Pending workup may need to go home with chronic diuretic and inhalers until he can get PCP Differential Diagnosis Differential Diagnoses: The differential diagnosis associated with the presentation includes asthma, edema, CHF, DVT Admission/Observation Consideration of admission/observation: Escalation of care including admission/observation considered no hypoxia feels much better BP is coming down able to urinate no DVT trop normal at this time can be managed with home medications chronic issue no acute hypoxia can be started on outpatinet oral medications and INH Lab Data MDM Lab Attestation statement: I reviewed the patient's lab results. 09/13/23 09:42 09/13/23 09:42 Labs: Lab Results 09/13/23 Range/Units 09:42 WBC 8.6 (4.8-10.8) X10*3/uL RBC 4.41 L (4.60-5.80) X10*6/uL Hgb 10.9 L (14.0-18.0) g/dl Hct 35.2 L (42.0-52.0) % MCV 79.8 L (80.0-98.0) fL MCH 24.7 L (27.0-33.0) pg MCHC 31.0 (31.0-36.0) g/dl RDW 15.9 (11.0-16.0) % Plt Count 239 (160-400) X10*3/uL MPV 10.1 (9.4-12.4) fL Immature Gran % (Auto) 1.0 H (0.0-0.4) % Neut % (Auto) 77.0 H (45-73) % Lymph % (Auto) 13.2 L (20-40) % [place] % (Auto) 7.5 (2-11) % Eos % (Auto) 0.8 (0-4) % Baso % (Auto) 0.5 (0-2) % Lymph # (Auto) 1.1 L (1.2-4.9) X10*3/uL [place] # (Auto) 0.7 (0.1-1.2) X10*3/uL Eos # (Auto) 0.1 (0.0-0.4) X10*3/uL Baso # (Auto) 0.0 (0.0-0.2) X10*3/uL Abs Immat Gran (auto) 0.09 H (0.00-0.03) X10*3/uL Absolute Neuts (auto) 6.7 (2.0-8.3) x10*3/uL Absolute Nucleated RBC 0.000 (0.0-0.012) X10*3/uL Nucleated RBC % (auto) 0.0 (0.0-0.2) /100WBC Sodium 141 (135-145) mmol/L Potassium 3.9 (3.3-5.1) mmol/L Chloride 104 (96-108) mmol/L Carbon Dioxide 31 H (22-29) mmol/L Anion Gap 10 L (12-20) BUN 7 L (9-16) mg/dL Creatinine 0.77 (0.5-1.4) mg/dL Estim Creat Clear Calc 251.7 Estimated GFR > 60 Random Glucose 136 H (60-115) mg/dL Calcium 9.0 (8.4-10.2) mg/dL Total Bilirubin 0.8 (0.0-1.0) mg/dL AST 15 (5-37) U/L ALT 14 (0-40) U/L Alkaline Phosphatase 91 (39-117) U/L Troponin I High Sens < 2.7 (<3.5-35.0) ng/L B-Natriuretic Peptide 123 H (<100) pg/mL Total Protein 7.2 (6.5-8.0) g/dL Albumin 3.9 (3.5-5.0) g/dL Independent Interpretation I performed an independent interpretation of an: EKG, Plain X-Ray (mild congestion) and Ultrasound (no DVT) Interpretation: Rate: 90 Rhythm: NSR [place]: normal Normal P waves. Normal ALFIE. Normal QRS complex. ST T wave : normal no BRAXTON qTC: 486 prior studies: no acute ischemia The study has been interpreted contemporaneously by me. . Radiology Impression Discussion of test interpretation with radiology: I have reviewed the radiologist's reading. External Record Review External record reviewed: Inpatient record Prescription Management I considered prescription management with: Other Discharge Plan Discharge Clinical Impression: Leg edema, Acute dyspnea Asthma with exacerbation Qualifiers: Asthma severity: moderate Asthma persistence: persistent Qualified Code(s): J45.41 - Moderate persistent asthma with (acute) exacerbation Patient Disposition: Home, Self-Care Instructions: Asthma (ED), Leg Edema (ED), Edema (ED) Additional Instructions: please go to the [facility] you need a primary care doctor. return for worsening symptoms, pain, difficulty breathing or any other concerns. your swelling needs to be managed daily. this needs close follow up the medications can affect your kidneys and potassium [facility] - [phone] please call and make appointment as soon as possible Prescriptions: New prednisone 20 mg tablet 40 mg PO DAILY 5 Days Qty: 10 0RF albuterol sulfate 90 mcg/actuation HFA aerosol inhaler 2 puff inhalation QID PRN (Reason: shortness of breath or wheezing) Qty: 6.7 2RF furosemide [Lasix] 40 mg tablet 40 mg PO DAILY Qty: 30 2RF hydroxyzine HCl 25 mg tablet 25 mg PO BID PRN (Reason: anxiety) Qty: 20 0RF No Action sulfamethoxazole-trimethoprim [Bactrim DS] 800-160 mg tablet 1 tab PO Q12H 10 Days Qty: 20 0RF cephalexin 500 mg capsule 500 mg PO QID 7 Days Qty: 28 0RF hydrochlorothiazide 12.5 mg tablet 12.5 mg PO DAILY Qty: 30 0RF metformin 500 mg tablet 500 mg PO BID Qty: 60 0RF furosemide [Lasix] 40 mg tablet 40 mg PO BID Qty: 6 0RF amoxicillin 500 mg tablet 500 mg PO BID Qty: 14 0RF furosemide [Lasix] 40 mg tablet 40 mg PO DAILY 5 Days Qty: 5 0RF potassium chloride 20 mEq tablet extended release 20 meq PO DAILY 5 Days Qty: 5 0RF albuterol sulfate [ProAir HFA] 90 mcg/actuation HFA aerosol inhaler 2 puff inhalation QID PRN (Reason: shortness of breath or wheezing) Qty: 6.7 0RF albuterol sulfate 2.5 mg/0.5 mL solution for nebulization 2.5 mg inhalation Q20M Qty: 30 0RF Rx Instructions: for up to 3 doses prednisone 20 mg tablet 40 mg PO DAILY 5 Days Qty: 10 0RF Interventions: ED Discharge Assessment Last Done: 09/13/23 12:34 Discharge Date/Time: 09/13/23 12:35
[2023-09-13] MEDS: methylPREDNISolone Sod Succ 125 MG/2 ML VIAL 60 MG IVPUSH (09:49)
[2023-09-13] MEDS: Furosemide 40 MG/4 ML VIAL IVPUSH (09:49)
[2023-09-13] MEDS: LORazepam 1 MG TABLET PO (09:49)
[2023-09-13] MEDS: Albuterol/Iprat 2.5/0.5MG 3 ML AMPUL.NEB INHALE (09:49)
--- NOTE | 2023-09-13 09:50 | PC.NURSE ---
20gIV placed in the right AC - labs obtained/sent to lab. medication administered per provider order. RT bedside - pt receiving duoneb at this time. ultrasound also bedside at this time. pt seemingly anxious at this time. effectiveness pending post medication administration. plan of care ongoing at this time. call lynn placed within reach.
[2023-09-13 09:51] LABS: MANUAL DIFF FLAG NO
[2023-09-13 09:52] VITALS: PULSE 90; RESP 18; O2SAT 98
[2023-09-13 09:53] LABS: Basophils Percent Auto 0.5 % (0-2); Eosinophils Absolute Auto 0.1 X10*3/uL (0.0-0.4); Eosinophils Percent Auto 0.8 % (0-4); Hematocrit 35.2 % (42.0-52.0); Hemoglobin 10.9 g/dl (14.0-18.0); Imm Gran Abs Auto 0.09 X10*3/uL (0.00-0.03); Lymphocytes Absolute Auto 1.1 X10*3/uL (1.2-4.9); Lymphocytes Percent Auto 13.2 % (20-40); Mean Corpuscular Hemoglobin 24.7 pg (27.0-33.0); Mean Corpuscular Volume 79.8 fL (80.0-98.0); Mean Platelet Volume 10.1 fL (9.4-12.4); Monocytes Absolute Auto 0.7 X10*3/uL (0.1-1.2); Monocytes Percent Auto 7.5 % (2-11); Neutrophils Absolute Auto 6.7 x10*3/uL (2.0-8.3); Platelet Count 239 X10*3/uL (160-400); Red Blood Count 4.41 X10*6/uL (4.60-5.80); Red Cell Distribution Width 15.9 % (11.0-16.0); White Blood Count 8.6 X10*3/uL (4.8-10.8)
[2023-09-13 10:12] LABS: Alanine Aminotransferase 14 U/L (0-40); Albumin Level 3.9 g/dL (3.5-5.0); Alkaline Phosphatase 91 U/L (39-117); Anion Gap 10 (12-20); Aspartate Amino Transferase 15 U/L (5-37); Bilirubin Total 0.8 mg/dL (0.0-1.0); Blood Urea Nitrogen 7 mg/dL (9-16); Carbon Dioxide 31 mmol/L (22-29); Chloride 104 mmol/L (96-108); Creatinine Clr Calc Pharmacy 251.7; Estimated Glomerular Filt Rate > 60; Glucose Random 136 mg/dL (60-115); Potassium 3.9 mmol/L (3.3-5.1); Sodium 141 mmol/L (135-145); Total Protein 7.2 g/dL (6.5-8.0)
--- NOTE | 2023-09-13 10:14 | MHC.EDTECH ---
EKG done late due to ultrasound in with patient.
[2023-09-13 10:16] LABS: B Type Natriuretic Peptide 123 pg/mL (<100)
[2023-09-13 10:20] VITALS: BP 182/92; PULSE 87; RESP 16; TEMP 36.6; O2SAT 94
[2023-09-13 10:26] LABS: Troponin-I High Sensitivity < 2.7 ng/L (<3.5-35.0)
== END 2023-09-13 12:35 | disposition home or self-care (01) ==
PROVIDERS: Emergency Provider Emergency Medicine
DX: J45.41 Moderate persistent asthma with (acute) exacerbation (principal); R60.0 Localized edema; R06.02 Shortness of breath; F41.9 Anxiety disorder, unspecified; E66.9 Obesity, unspecified; Z68.44 Body mass index [BMI] 60.0-69.9, adult; Z79.899 Other long term (current) drug therapy
CPT/HCPCS: 36415; 71045; 80053; 83880; 84484; 85025; 93005; 93970; 94640; 99285; J1940; J2930

== ENCOUNTER → 2023-09-13 09:20 | Outpatient (BNV) | payer SELFPAY | PROVIDERS: Emergency Provider Emergency Medicine; Visit Provider Internal Medicine Cardiovascular Disease | DX: R94.31 Abnormal electrocardiogram [ECG] [EKG] (principal) | CPT/HCPCS: 93010 ==

== ENCOUNTER 2024-04-02 02:37 | Emergency (ER) | payer SELFPAY ==
[2024-04-02 02:44] VITALS: BP 200/105; PULSE 89; RESP 16; TEMP 36.2; O2SAT 95; BMI 58.8
--- NOTE | 2024-04-02 04:38 | ED.GENADULT ---
HPI - General Adult General Chief complaint: General Medical Stated complaint: right side abdominal wound/bleeding Time Seen by Provider: 04/02/24 04:26 Source: patient Mode of arrival: ambulatory Limitations: no limitations History of Present Illness ED Provider: gary DYER narrative: Patient obese comes here for bleeding from the chronic small wound on the left lower abdomen which he scratched by mistake Related Data Previous Rx's ?Medication ?Instructions ?Recorded cephalexin 500 mg capsule 500 mg PO QID 7 days #28 caps 09/17/20 hydrochlorothiazide 12.5 mg tablet 12.5 mg PO DAILY #30 tabs 09/17/20 metformin 500 mg tablet 500 mg PO BID #60 tabs 09/17/20 sulfamethoxazole 800 1 tab PO Q12H 10 days #20 tabs 09/17/20 mg-trimethoprim 160 mg tablet (Bactrim DS) furosemide 40 mg tablet (Lasix) 40 mg PO BID #6 tabs 09/22/20 amoxicillin 500 mg tablet 500 mg PO BID #14 tabs 11/07/20 albuterol sulfate 2.5 mg/0.5 mL 2.5 mg (0.5 mL) inhalation Q20M 07/10/23 solution for nebulization #30 ea albuterol sulfate 90 mcg/actuation 2 puff inhalation QID PRN 07/10/23 aerosol inhaler (ProAir HFA) shortness of breath or wheezing #6.7 grams furosemide 40 mg tablet (Lasix) 40 mg PO DAILY 5 days #5 tabs 07/10/23 potassium chloride 20 mEq 20 meq PO DAILY 5 days #5 tabs 07/10/23 tablet,extended release prednisone 20 mg tablet 40 mg (2 x 20 mg) PO DAILY 5 days 07/10/23 #10 tabs albuterol sulfate 90 mcg/actuation 2 puff inhalation QID PRN 09/13/23 aerosol inhaler shortness of breath or wheezing #6.7 grams furosemide 40 mg tablet (Lasix) 40 mg PO DAILY #30 tabs 09/13/23 hydroxyzine HCl 25 mg tablet 25 mg PO BID PRN anxiety #20 tabs 09/13/23 prednisone 20 mg tablet 40 mg (2 x 20 mg) PO DAILY 5 days 09/13/23 #10 tabs Allergies Allergy/AdvReac Type Severity Reaction Status Date / Time clindamycin [CLINDAMYCIN] Allergy Unknown HIVES Verified 04/02/24 02:46 doxycycline [DOXYCYCLINE] Allergy Unknown HIVES Verified 04/02/24 02:46 Review of Systems Review of Systems: Yes all other systems are reviewed and are negative [facility] Past Medical History Medical History Obesity Asthma Social History Social History Patient Tobacco Use Status: Never used Tobacco Substance Use Type: Marijuana Advance Directives: No Advance Directives Information Provided: No Do you have a plan to hurt others: No Plan Physical Exam ED Vital Signs: Vital Signs - 24 hr 04/02/24 02:44 04/02/24 04:44 Temperature 97.1 F 97.1 F Pulse Rate 89 89 Respiratory Rate 16 16 Blood Pressure 200/105 H 200/105 H Pulse Oximetry 95 95 Oxygen Delivery Method Room Air Room Air BMI result Body Mass Index 58.8 Skin Full body images: 1. Small oozing wound Medical Decision Making Medical Decision Making MDM Narrative: Silver nitrate was used to stop the oozing wound bleeding stopped Discharge Plan Discharge Clinical Impression: Bleeding from wound Patient Disposition: Home, Self-Care Instructions: Acute Wounds (ED) Additional Instructions: Local care as advised Do not scratch the wound Prescriptions: No Action sulfamethoxazole-trimethoprim [Bactrim DS] 800-160 mg tablet 1 tab PO Q12H 10 Days Qty: 20 0RF cephalexin 500 mg capsule 500 mg PO QID 7 Days Qty: 28 0RF hydrochlorothiazide 12.5 mg tablet 12.5 mg PO DAILY Qty: 30 0RF metformin 500 mg tablet 500 mg PO BID Qty: 60 0RF furosemide [Lasix] 40 mg tablet 40 mg PO BID Qty: 6 0RF amoxicillin 500 mg tablet 500 mg PO BID Qty: 14 0RF furosemide [Lasix] 40 mg tablet 40 mg PO DAILY 5 Days Qty: 5 0RF potassium chloride 20 mEq tablet extended release 20 meq PO DAILY 5 Days Qty: 5 0RF albuterol sulfate [ProAir HFA] 90 mcg/actuation HFA aerosol inhaler 2 puff inhalation QID PRN (Reason: shortness of breath or wheezing) Qty: 6.7 0RF albuterol sulfate 2.5 mg/0.5 mL solution for nebulization 2.5 mg inhalation Q20M Qty: 30 0RF Rx Instructions: for up to 3 doses prednisone 20 mg tablet 40 mg PO DAILY 5 Days Qty: 10 0RF prednisone 20 mg tablet 40 mg PO DAILY 5 Days Qty: 10 0RF albuterol sulfate 90 mcg/actuation HFA aerosol inhaler 2 puff inhalation QID PRN (Reason: shortness of breath or wheezing) Qty: 6.7 2RF furosemide [Lasix] 40 mg tablet 40 mg PO DAILY Qty: 30 2RF hydroxyzine HCl 25 mg tablet 25 mg PO BID PRN (Reason: anxiety) Qty: 20 0RF Interventions: ED Discharge Assessment Last Done: 04/02/24 04:44 Discharge Date/Time: 04/02/24 04:45 Print Language: Bulgarian
[2024-04-02 04:44] VITALS: BP 200/105; PULSE 89; RESP 16; TEMP 36.2; O2SAT 95
== END 2024-04-02 04:45 | disposition home or self-care (01) ==
PROVIDERS: Emergency Provider Internal Medicine
DX: R10.32 Left lower quadrant pain (principal)
CPT/HCPCS: 99282

== ENCOUNTER 2024-05-22 14:16 | Inpatient (IN) | payer MEDICAID, SELFPAY ==
[2024-05-22] VITALS (10 sets, daily range): BP systolic 168–226; BP diastolic 71–114; PULSE 103–114; RESP 18–28; TEMP 37.3–38.7; O2SAT 93–96; BMI 61.6
--- NOTE | ~2024-05-22 | XR_ITS ---
EXAMINATION: XR CHEST CLINICAL INFORMATION: Shortness of breath, fever COMPARISON: Chest x-ray on 09/13/2023 TECHNIQUE: Frontal view of the chest was obtained. FINDINGS: The cardiac silhouette is normal. There is mild diffuse bronchial wall thickening. There are no areas of consolidation. There are no pleural effusions or pneumothoraces. The bones and soft tissues are unremarkable for the patient's age. XR/XR chest 1V IMPRESSION: Bronchial wall thickening may be infectious and/or inflammatory in etiology. Electronically signed by: Mari Solitario MD 05/22/2024 06:47 PM EDT
--- NOTE | ~2024-05-22 | US_ITS ---
EXAMINATION: RIGHT LOWER EXTREMITY DEEP VENOUS ULTRASOUND CLINICAL INFORMATION: Bilateral lower extremity DVT study. Right 2023 COMPARISON: Right lower extremity pain TECHNIQUE: Duplex Doppler imaging with compression maneuvers were performed of the right lower extremity deep venous system. Today's examination is extremely limited secondary to patient body habitus and a large bandage overlying the majority of the calf. FINDINGS: The visualized common femoral, femoral and popliteal veins demonstrate normal compressibility and color flow without evidence of venous thrombosis. Calf veins could not be evaluated due to overlying bandage. There is no evidence of a Qiu's cyst. US/US venous duplex LE RT IMPRESSION: No evidence of deep venous thrombosis involving the right lower extremity. Electronically signed by: Hardy Eckert MD 05/27/2024 09:34 AM EDT
--- NOTE | 2024-05-22 14:35 | PC.NURSE ---
Pt. is on awake overnight monitor at this time.
--- NOTE | 2024-05-22 15:21 | PC.NURSE ---
20G peripheral IV inserted to pt.'s RAC. Tolerated well. Good blood return.
[2024-05-22 15:25] LABS: MANUAL DIFF FLAG NO
[2024-05-22 15:28] LABS: Basophils Percent Auto 0.3 % (0-2); Hematocrit 32.8 % (42.0-52.0); Hemoglobin 10.1 g/dl (14.0-18.0); Imm Gran Abs Auto 0.09 X10*3/uL (0.00-0.03); Imm Gran Pct Auto 0.8 % (0.0-0.4); Lymphocytes Absolute Auto 0.5 X10*3/uL (1.2-4.9); Lymphocytes Percent Auto 4.8 % (20-40); Mean Corpuscular HGB Conc 30.8 g/dl (31.0-36.0); Mean Corpuscular Hemoglobin 23.9 pg (27.0-33.0); Mean Corpuscular Volume 77.7 fL (80.0-98.0); Mean Platelet Volume 10.5 fL (9.4-12.4); Monocytes Absolute Auto 0.6 X10*3/uL (0.1-1.2); Monocytes Percent Auto 5.9 % (2-11); Neutrophils Absolute Auto 9.5 x10*3/uL (2.0-8.3); Neutrophils Percent Auto 88.2 % (45-73); Platelet Count 186 X10*3/uL (160-400); Red Blood Count 4.22 X10*6/uL (4.60-5.80); Red Cell Distribution Width 16.3 % (11.0-16.0); White Blood Count 10.7 X10*3/uL (4.8-10.8)
[2024-05-22 15:44] LABS: Alanine Aminotransferase 18 U/L (0-40); Albumin Level 3.2 g/dL (3.5-5.0); Alkaline Phosphatase 76 U/L (39-117); Anion Gap 9 (12-20); Aspartate Amino Transferase 29 U/L (5-37); Bilirubin Total 2.1 mg/dL (0.0-1.0); Blood Urea Nitrogen 14 mg/dL (9-16); C Reactive Protein 18.14 mg/dL (< or = 0.50); Calcium 8.5 mg/dL (8.4-10.2); Carbon Dioxide 29 mmol/L (22-29); Chloride 98 mmol/L (96-108); Creatinine Clr Calc Pharmacy 180.4; Estimated Glomerular Filt Rate > 60; Glucose Random 216 mg/dL (60-115); Potassium 3.8 mmol/L (3.3-5.1); Sodium 132 mmol/L (135-145); Total Protein 7.4 g/dL (6.5-8.0)
[2024-05-22 16:05] LABS: Erythrocyte Sedimentation Rate 73 MM/HR (0-15)
[2024-05-22] MEDS: Albuterol Sulfate 5 MG, Albuterol/Iprat 2.5/0.5MG 3 ML 3 ML INHALE (17:35)
--- NOTE | 2024-05-22 17:47 | ED.GENADULT ---
HPI - General Adult General Chief complaint: General Medical Stated complaint: LEG SWELLING , BLISTERS Time Seen by Provider: 05/22/24 17:06 Source: patient Mode of arrival: ambulatory Limitations: no limitations History of Present Illness ED Provider: Dr. Mariama Noriega HPI narrative: Patient comes to the emergency room complaining of lower extremity edema and redness. Patient states that the right leg is much worse than usual. Patient has frequent cellulitis in the right lower extremity. Patient states that for the last 3 days, the leg has been getting more swollen and erythematous. Patient now has blisters that have been draining serosanguineous fluid. Patient also complaining of mild shortness of breath, states that he is due for his inhaler For asthma. Related Data Previous Rx's ?Medication ?Instructions ?Recorded cephalexin 500 mg capsule 500 mg PO QID 7 days #28 caps 09/17/20 hydrochlorothiazide 12.5 mg tablet 12.5 mg PO DAILY #30 tabs 09/17/20 metformin 500 mg tablet 500 mg PO BID #60 tabs 09/17/20 sulfamethoxazole 800 1 tab PO Q12H 10 days #20 tabs 09/17/20 mg-trimethoprim 160 mg tablet (Bactrim DS) furosemide 40 mg tablet (Lasix) 40 mg PO BID #6 tabs 09/22/20 amoxicillin 500 mg tablet 500 mg PO BID #14 tabs 11/07/20 albuterol sulfate 2.5 mg/0.5 mL 2.5 mg (0.5 mL) inhalation Q20M 07/10/23 solution for nebulization #30 ea albuterol sulfate 90 mcg/actuation 2 puff inhalation QID PRN 07/10/23 aerosol inhaler (ProAir HFA) shortness of breath or wheezing #6.7 grams furosemide 40 mg tablet (Lasix) 40 mg PO DAILY 5 days #5 tabs 07/10/23 potassium chloride 20 mEq 20 meq PO DAILY 5 days #5 tabs 07/10/23 tablet,extended release prednisone 20 mg tablet 40 mg (2 x 20 mg) PO DAILY 5 days 07/10/23 #10 tabs albuterol sulfate 90 mcg/actuation 2 puff inhalation QID PRN 09/13/23 aerosol inhaler shortness of breath or wheezing #6.7 grams furosemide 40 mg tablet (Lasix) 40 mg PO DAILY #30 tabs 09/13/23 hydroxyzine HCl 25 mg tablet 25 mg PO BID PRN anxiety #20 tabs 09/13/23 prednisone 20 mg tablet 40 mg (2 x 20 mg) PO DAILY 5 days 09/13/23 #10 tabs Allergies Allergy/AdvReac Type Severity Reaction Status Date / Time clindamycin [CLINDAMYCIN] Allergy Unknown HIVES Verified 05/22/24 14:31 doxycycline [DOXYCYCLINE] Allergy Unknown HIVES Verified 05/22/24 14:31 Review of Systems Review of Systems: Constitutional : No Weight loss, No Fever, No Chills, No Night Sweats, No Fatigue, No Malaise ENT/Mouth : No Hearing loss, No Ear Pain, No Nasal Congestion, No Sinus Pain, No Hoarseness, No sore throat, No Rhinorrhea, No Swallowing Difficulty Eyes: No Eye Pain, No Swelling, No Redness, No Foreign Body, No Discharge, No Vision Changes Cardiovascular : No Chest Pain, No SOB, No Dyspnea on Exertion, No Orthopnea, No Edema, No Palpitations Respiratory : patient complaining of intermittent wheezing, cough, no sputum production, No Smoke Exposure, No Dyspnea Gastrointestinal : No Nausea, No Vomiting, No Diarrhea, No Constipation, No abdominal Pain, No Hematochezia, No Melena Genitourinary : no irregular bleeding, No Dysuria, No Urinary Frequency, No Hematuria, No Urinary Incontinence, No Urgency, No Flank Pain, No Urinary Flow Changes, No Hesitancy Musculoskeletal : No joint pain, No Myalgias, No Joint Swelling Skin : complaining of erythema in the lower extremities, worse in the right side, blisters in the leg draining Neuro : No Weakness, No Numbness, No Paresthesias, No Loss of Consciousness, No Dizziness, No Headache Psych : No Anxiety/Panic, No Depression, No SI/HI/AH/VH, No Social Issues, Heme/Lymph: No Bruising, No Bleeding,No Lymphadenopathy Endocrine : No Polyuria, No Polydipsia, No Temperature Intolerance PMFSH Past Medical History Medical History Obesity Asthma Social History Social History Patient Tobacco Use Status: Never used Tobacco Smoked in Last 30 Days: No Use of substances other than those prescribed or required for medical reasons: Yes Substance Use Type: Marijuana Substance Use Frequency: Weekly Advance Directives: No Advance Directives Information Provided: Yes Do you have a plan to hurt others: No Plan Physical Exam ED Vital Signs: Vital Signs - 24 hr 05/22/24 14:29 05/22/24 14:34 05/22/24 17:16 Temperature 99.1 F 99.1 F 101.7 F H Pulse Rate 103 H 103 H 111 H Respiratory Rate 18 18 26 H Blood Pressure 168/98 H 168/98 H 203/113 H Pulse Oximetry 93 93 95 Oxygen Delivery Method Room Air Room Air Room Air 05/22/24 17:27 05/22/24 17:38 05/22/24 18:06 Temperature Pulse Rate 109 H 104 H Respiratory Rate 18 Blood Pressure 173/99 H 187/71 H Pulse Oximetry Oxygen Delivery Method BMI result Body Mass Index 61.6 Const Other: Appearance: Alert. Oriented X3. No acute distress. morbidly obese Eyes: Pupils equal, round and reactive to light. ENT: Pharynx normal. Neck: Normal inspection. Neck supple. No lymph nodes noted. No crepitus CVS: Normal heart rate and rhythm. Pulses normal. Normal S1 and S2 Respiratory: No respiratory distress. mild bilateral wheezing, good air movement, No rales Abdomen: Soft and nontender. No rigidity. No distention. Skin: Skin warm and dry. Normal skin color. Normal skin turgor. see extremities below Extremities: No lower extremity edema. No Lacerations. No Rash patient has draining blisters from the right lower extremity, very erythematous up to the upper thigh. See pictures below. Very tender to touch Neuro: Oriented X 3. No motor deficit. No sensory deficit. Moving all extremities. No slurred speech. CN 2 through 12 grossly intact Psych: calm, cooperative, normal affect Medications Administered Discontinued Medications Generic Name Dose Route Start Last Admin Trade Name Freq PRN Reason Stop Dose Admin Acetaminophen 975 mg 05/22/24 17:21 05/22/24 18:05 Acetaminophen 325 Mg Tablet PO 05/22/24 17:22 975 mg ONCE ONE Administration Amlodipine Besylate 10 mg 05/22/24 17:22 05/22/24 18:06 Amlodipine Besylate 10 Mg Tablet PO 05/22/24 17:23 10 mg ONCE ONE Administration Protocol Albuterol Sulfate 5 mg/ 0 mg 05/22/24 17:32 05/22/24 17:35 Albuterol/Ipratropium 3 ml INHALE 05/22/24 17:33 1 each ONCE ONE Administration Vancomycin HCl 2,000 mg in 500 mls @ 250 mls/hr 05/22/24 17:20 05/22/24 18:05 Vancomycin/Ns IV 05/22/24 19:19 250 mls/hr ONCE ONE Administration Piperacillin Sod/Tazobactam 50 mls @ 100 mls/hr 05/22/24 17:20 05/22/24 18:05 Sod 3.375 gm/ Sodium Chloride IV 05/22/24 17:49 100 mls/hr ONCE ONE Administration Medical Decision Making Medical Decision Making [facility] Narrative: my interpretation of labs: Patient's white blood cell count 10.7, no significant abnormality and chemistry, ESR and CRP elevated. Lactic acid 2.6 - Patient receiving vancomycin and Zosyn. Patient has a fever of 101.7. Patient's blood pressure is elevated, mildly tachycardic. - Patient states that usually at this time, he uses an inhaler. Patient feeling a bit short of breath, patient has mild wheezing. - Patient was given amlodipine 10 mg to help with the blood pressure, now 173/99 I discussed the patient with Dr. Scott and Dr. Montgomery, pt being admitted Differential Diagnosis Differential Diagnoses: The differential diagnosis associated with the presentation includes ( cellulitis, lower extremity edema, CHF) Admission/Observation Consideration of admission/observation: Escalation of care including admission/observation considered Consult Healthcare Provider Management of the patient was discussed with: Hospitalist Lab Data [facility] Lab Attestation statement: I reviewed the patient's lab results. 05/22/24 15:19 05/22/24 15:19 Labs: Lab Results 05/22/24 05/22/24 Range/Units 15:19 18:00 WBC 10.7 (4.8-10.8) X10*3/uL RBC 4.22 L (4.60-5.80) X10*6/uL Hgb 10.1 L (14.0-18.0) g/dl Hct 32.8 L (42.0-52.0) % MCV 77.7 L (80.0-98.0) fL MCH 23.9 L (27.0-33.0) pg MCHC 30.8 L (31.0-36.0) g/dl RDW 16.3 H (11.0-16.0) % Plt Count 186 (160-400) X10*3/uL MPV 10.5 (9.4-12.4) fL Immature Gran % (Auto) 0.8 H (0.0-0.4) % Neut % (Auto) 88.2 H (45-73) % Lymph % (Auto) 4.8 L (20-40) % [place] % (Auto) 5.9 (2-11) % Eos % (Auto) 0.0 (0-4) % Baso % (Auto) 0.3 (0-2) % Lymph # (Auto) 0.5 L (1.2-4.9) X10*3/uL [place] # (Auto) 0.6 (0.1-1.2) X10*3/uL Eos # (Auto) 0.0 (0.0-0.4) X10*3/uL Baso # (Auto) 0.0 (0.0-0.2) X10*3/uL Abs Immat Gran (auto) 0.09 H (0.00-0.03) X10*3/uL Absolute Neuts (auto) 9.5 H (2.0-8.3) x10*3/uL Absolute Nucleated RBC 0.000 (0.0-0.012) X10*3/uL Nucleated RBC % (auto) 0.0 (0.0-0.2) /100WBC ESR 73 H (0-15) MM/HR Sodium 132 L (135-145) mmol/L Potassium 3.8 (3.3-5.1) mmol/L Chloride 98 (96-108) mmol/L Carbon Dioxide 29 (22-29) mmol/L Anion Gap 9 L (12-20) BUN 14 (9-16) mg/dL Creatinine 1.05 (0.5-1.4) mg/dL Estim Creat Clear Calc 180.4 Estimated GFR > 60 Random Glucose 216 H (60-115) mg/dL Lactic Acid 2.6 H* (0.5-2.0) mmol/L Calcium 8.5 (8.4-10.2) mg/dL Magnesium 2.0 (1.6-2.6) mg/dL Total Bilirubin 2.1 H (0.0-1.0) mg/dL AST 29 (5-37) U/L ALT 18 (0-40) U/L Alkaline Phosphatase 76 (39-117) U/L C-Reactive Protein 18.14 H (< or = 0.50) mg/dL Total Protein 7.4 (6.5-8.0) g/dL Albumin 3.2 L (3.5-5.0) g/dL Independent Interpretation I performed an independent interpretation of an: Plain X-Ray Radiology Impression Discussion of test interpretation with radiology: I have reviewed the radiologist's reading. Radiologist Impression: The cardiac silhouette is normal. There is mild diffuse bronchial wall thickening. There are no areas of consolidation. There are no pleural effusions or pneumothoraces. The bones and soft tissues are unremarkable for the patient's age. XR/XR chest 1V IMPRESSION: Bronchial wall thickening may be infectious and/or inflammatory in etiology. Critical Care Time Critical Care Time Critical Care Time: Yes Total Critical Care Time: 60 Attestation: I have personally provided critical care time. Time includes review of lab data, radiology results, discussion with consultants, and monitoring for potential decompensation. Intervention performed as documented. Discharge Plan Discharge Clinical Impression: Bilateral lower extremity edema, Acute cellulitis Patient Disposition: Admitted As Inpatient Prescriptions: No Action sulfamethoxazole-trimethoprim [Bactrim DS] 800-160 mg tablet 1 tab PO Q12H 10 Days Qty: 20 0RF cephalexin 500 mg capsule 500 mg PO QID 7 Days Qty: 28 0RF hydrochlorothiazide 12.5 mg tablet 12.5 mg PO DAILY Qty: 30 0RF metformin 500 mg tablet 500 mg PO BID Qty: 60 0RF furosemide [Lasix] 40 mg tablet 40 mg PO BID Qty: 6 0RF amoxicillin 500 mg tablet 500 mg PO BID Qty: 14 0RF furosemide [Lasix] 40 mg tablet 40 mg PO DAILY 5 Days Qty: 5 0RF potassium chloride 20 mEq tablet extended release 20 meq PO DAILY 5 Days Qty: 5 0RF albuterol sulfate [ProAir HFA] 90 mcg/actuation HFA aerosol inhaler 2 puff inhalation QID PRN (Reason: shortness of breath or wheezing) Qty: 6.7 0RF albuterol sulfate 2.5 mg/0.5 mL solution for nebulization 2.5 mg inhalation Q20M Qty: 30 0RF Rx Instructions: for up to 3 doses prednisone 20 mg tablet 40 mg PO DAILY 5 Days Qty: 10 0RF prednisone 20 mg tablet 40 mg PO DAILY 5 Days Qty: 10 0RF albuterol sulfate 90 mcg/actuation HFA aerosol inhaler 2 puff inhalation QID PRN (Reason: shortness of breath or wheezing) Qty: 6.7 2RF furosemide [Lasix] 40 mg tablet 40 mg PO DAILY Qty: 30 2RF hydroxyzine HCl 25 mg tablet 25 mg PO BID PRN (Reason: anxiety) Qty: 20 0RF Print Language: Indonesian
[2024-05-22] MEDS: Piperacillin Sodium/Tazobactam 3.375 GM in 0.9 % Sodium Chloride 50 ML IV (18:05)
[2024-05-22] MEDS: vancomycin/NS 2,000 MG/500 ML PLAST..BAG 250 MG IV (18:05)
[2024-05-22] MEDS: Acetaminophen 325 MG TABLET 975 MG PO (18:05)
[2024-05-22] MEDS: amLODIPine Besylate 10 MG TABLET PO (18:06)
[2024-05-22 18:21] LABS: Lactic Acid 2.6 mmol/L (0.5-2.0)
--- NOTE | 2024-05-22 19:02 | P.HPHOSP_ITS ---
History of Present Illness Date of Service: 05/22/24 Chief Complaint: Lower extremity infection This is a 38-year-old male with pertinent history of hypertension, cnd-kyuwwcl-hccnvbisq diabetes mellitus, obesity, asthma not on home oxygen, lower extremity edema who presents to the emergency department for concerns of lower extremity infection. Patient states his symptoms started about 10-14 days prior to presentation. He has noticed swelling, erythema and pain of his right lower extremity. The redness and warmth have been progressive and worsened over the last 1 week. Also has associated fevers and chills. Does not remember if he has had cellulitis in the past. His right lower extremity is with purulent drainage. Patient states he takes a fluid pill for lower extremity edema but he has never been told that he has hypertension nor has he been prescribed antihypertensives. No chest pain, palpitations, shortness of breath, abdominal pain, changes in urinary or bowel habits. In the emergency department, patient was found be septic and initiated on empiric IV antibiotics. Review of Systems 2 Constitutional: Constitutional: Reports chills and Reports fever(s) Cardiovascular: Cardiovascular: Reports no additional cardiovascular complaints Gastrointestinal: Gastrointestinal: Reports no additional gastrointestinal complaints Genitourinary: Genitourinary: Reports no additional male genitourinary complaints [facility] Medical History Obesity Asthma Pertinent family history: No family history of early CAD Social History Patient Tobacco Use Status: Never used Tobacco Smoked in Last 30 Days: No Use of substances other than those prescribed or required for medical reasons: Yes Substance Use Type: Marijuana Substance Use Frequency: Weekly Advance Directives: No Advance Directives Information Provided: Yes Do you have a plan to hurt others: No Plan Meds Allergies Allergy/AdvReac Type Severity Reaction Status Date / Time clindamycin [CLINDAMYCIN] Allergy Unknown HIVES Verified 05/22/24 14:31 doxycycline [DOXYCYCLINE] Allergy Unknown HIVES Verified 05/22/24 14:31 Active Medications: Current Medications Vancomycin HCl (Vancomycin/Ns) 2,000 mg in 500 mls @ 250 mls/hr IV ONCE ONE Stop: 05/22/24 19:19 Last Admin: 05/22/24 18:05 Dose: 250 mls/hr Physical Exam 2 Vital Signs and Narrative: Vital Signs: Last Vital Signs Temp 101.7 F H 05/22/24 17:16 Pulse 104 H 05/22/24 17:38 Resp 18 05/22/24 17:38 BP 187/71 H 05/22/24 18:06 Pulse Ox 95 05/22/24 17:16 O2 Del Method Room Air 05/22/24 17:16 BMI result Body Mass Index 61.6 Middle-aged male lying in bed in no distress Neck supple, no JVD Regular rate and rhythm, S1-S2 heard Decreased breath sounds at bases Abdomen soft nontender, no guarding, no rigidity Patient is awake, alert and oriented to self, place, time and person ; no focal motor deficit Psych: Normal mood Bilateral lower extremity edema present right lower extremity with erythema, warmth and tenderness as pictured below Skin: Other: Results Labs 05/22/24 15:19 05/22/24 15:19 Labs: Laboratory Results - last 24 hr 05/22/24 05/22/24 15:19 18:00 MCV 77.7 L MCH 23.9 L MCHC 30.8 L RDW 16.3 H Plt Count 186 MPV 10.5 Immature Gran % (Auto) 0.8 H Neut % (Auto) 88.2 H Lymph % (Auto) 4.8 L [place] % (Auto) 5.9 Eos % (Auto) 0.0 Baso % (Auto) 0.3 Lymph # (Auto) 0.5 L [place] # (Auto) 0.6 Eos # (Auto) 0.0 Baso # (Auto) 0.0 Abs Immat Gran (auto) 0.09 H Absolute Neuts (auto) 9.5 H Absolute Nucleated RBC 0.000 Nucleated RBC % (auto) 0.0 ESR 73 H Anion Gap 9 L Estim Creat Clear Calc 180.4 Estimated GFR > 60 Random Glucose 216 H Lactic Acid 2.6 H* Calcium 8.5 Magnesium 2.0 Total Bilirubin 2.1 H AST 29 ALT 18 Alkaline Phosphatase 76 C-Reactive Protein 18.14 H Total Protein 7.4 Albumin 3.2 L Imaging Radiologist's Impressions: Impressions Chest X-Ray 05/22/24 17:20 IMPRESSION: Bronchial wall thickening may be infectious and/or inflammatory in etiology. Electronically signed by: Mari Solitario MD 05/22/2024 06:47 PM EDT RP Assessment and Plan (1) Acute cellulitis: Status: Acute (2) Sepsis: Status: Acute Plan This is a 38-year-old male with pertinent history of hypertension, kud-nygzgyi-obxkxbowo diabetes mellitus, obesity, asthma not on home oxygen, lower extremity edema who presents to the emergency department for concerns of lower extremity infection #. Sepsis due to right lower extremity cellulitis: Resuscitated with IV crystalloids. Lactic acid and blood culture obtained. Initiating IV vancomycin. Monitor for improvement. Consulting Wound Care #. Cal-qrwbyud-darhgkcrm diabetes mellitus with hyperglycemia: Initiating Accu-Cheks with sliding scale insulin #. Acute lactic acidosis due to sepsis and metformin use #. Asthma: Not on home oxygen. Continue home inhalers. No exacerbation during admission #. Hypertension, uncontrolled: Adding hydrochlorothiazide to patient's home furosemide. Continue to monitor and optimize antihypertensives #. Morbid obesity: Counseled regarding diet and exercise #. Microcytic anemia: Obtaining iron panel Med rec pending DVT prophylaxis: Lovenox Full code Admit as inpatient and will require two night minimum hospital stay for IV antibiotics (as above), which is not possible in a lesser acute setting. Quality Stroke Does the patient have a stroke diagnosis?: No VTE Prior VTE?: No VTE Risk Level:: Medical - moderate - high VTE Device Contraindication: Treatment Not Indicated VTE Drug Contraindication: N/A - Med Ordered
--- NOTE | 2024-05-22 19:21 | PHA.PROG ---
Admission Date/Time: Indication: Sepsis Weight in k.8 kg Adjusted body weight in Kg: [place] body weight in Kg: Obesity Dosing Indication % IBW: Serum Creatinine - Last 168 Hours 05/22/24 15:19 Creatinine 1.05 Estimated CrCl and GFR - Last 168 Hours 05/22/24 15:19 Estim Creat Clear Calc 180.4 Estimated GFR > 60 Vancomycin Loading Dose: 2000mg x 1 Current Vancomycin Dosing Regimen: 1250mg Q8H Vancomycin Monitoring using AUC goal of 400 - 600 range with trough as surrogate marker: 561 mg/L Date and Time for next Vancomycin Level to be drawn: 05/23 @1600 Pharmacist Comments on Vancomycin Plan: Obesity model being used; predicted trough of 18.7mg/L Vancomycin dosing will take advantage of [employer] as a clinical decision support tool that uses Bayesian modeling to calculate individual patient's pharmacokinetic parameters and forecast the patient's drug concentration time course with the target goal AUC 24 range of 400 - 600 mg/L/hr.
[2024-05-22 20:01] LABS: Reflex Lactate? Lactic Acid Added
[2024-05-22 20:39] LABS: Glucose, Whole Blood 246 mg/dL (60-115)
[2024-05-22] MEDS: Insulin Lispro 100 UNIT/ML 3 ML VIAL SUBCUT (21:06)
[2024-05-22] MEDS: hydroCHLOROthiazide 25 MG TABLET PO (21:06)
[2024-05-22] MEDS: Enoxaparin Sodium 40 MG/0.4 ML SYRINGE SUBCUT (21:06)
--- NOTE | 2024-05-22 22:31 | PHA.MEDREC ---
Addendum entered by Justin Shoemaker 05/22/24 22:45: Patient confirmed he has not taken nor gotten filled his Hydrochlorothiazide 12.5mg, Hydroxyzine 25mg, Metformin 500mg tab and Potassium chloride tab in a while per patient. Original Note: Pharmacy Consult ? Medication Reconciliation Pharmacy has completed the medication reconciliation. Confirmed medications with patient. Patient confirmed his Furosemide 40mg tab once daily and the patient confirmed he has not been very compliant with it but was taking it consistently except for today he never took his medication due to coming in here.
[2024-05-22] MEDS: 0.9 % Sodium Chloride Flush 3 ML SYRINGE IVFLUSH (23:11)
[2024-05-22] MEDS: Albumin Human 25 % 100 ML 133.33 ML IV (23:12)
[2024-05-23] VITALS (8 sets, daily range): BP systolic 116–172; BP diastolic 62–84; PULSE 87–110; RESP 14–20; TEMP 36.7–39; O2SAT 93–96
[2024-05-23] MEDS: Acetaminophen 325 MG TABLET 650 MG PO ×3 (00:14→21:35)
[2024-05-23] MEDS: ondansetron HCL 4 MG/2 ML VIAL IVPUSH (02:05)
[2024-05-23] MEDS: vancomycin HCL 1,250 MG in 0.9 % Sodium Chloride 250 ML 166.67 MG IV ×3 (02:06→17:42)
[2024-05-23 05:15] LABS: MANUAL DIFF FLAG NO
[2024-05-23 05:17] LABS: Basophils Absolute Auto 0.1 X10*3/uL (0.0-0.2); Basophils Percent Auto 0.7 % (0-2); Hematocrit 31.1 % (42.0-52.0); Hemoglobin 9.6 g/dl (14.0-18.0); Imm Gran Abs Auto 0.12 X10*3/uL (0.00-0.03); Imm Gran Pct Auto 0.8 % (0.0-0.4); Lymphocytes Absolute Auto 0.8 X10*3/uL (1.2-4.9); Lymphocytes Percent Auto 5.2 % (20-40); Mean Corpuscular HGB Conc 30.9 g/dl (31.0-36.0); Mean Corpuscular Hemoglobin 23.7 pg (27.0-33.0); Mean Corpuscular Volume 76.8 fL (80.0-98.0); Mean Platelet Volume 10.7 fL (9.4-12.4); Monocytes Absolute Auto 0.9 X10*3/uL (0.1-1.2); Monocytes Percent Auto 5.9 % (2-11); Neutrophils Absolute Auto 13.7 x10*3/uL (2.0-8.3); Neutrophils Percent Auto 87.4 % (45-73); Platelet Count 189 X10*3/uL (160-400); Red Blood Count 4.05 X10*6/uL (4.60-5.80); Red Cell Distribution Width 16.5 % (11.0-16.0); White Blood Count 15.7 X10*3/uL (4.8-10.8)
[2024-05-23 05:32] LABS: Anion Gap 13 (12-20); Blood Urea Nitrogen 13 mg/dL (9-16); Calcium 8.2 mg/dL (8.4-10.2); Carbon Dioxide 25 mmol/L (22-29); Chloride 95 mmol/L (96-108); Creatinine Clr Calc Pharmacy 177.1; Estimated Glomerular Filt Rate > 60; Glucose Random 202 mg/dL (60-115); Iron 11 mcg/dL (45-160); Percent Iron Saturation 7 % (15-50); Potassium 3.4 mmol/L (3.3-5.1); Sodium 130 mmol/L (135-145); Total Iron Binding Capacity 167 mcg/dL (228-428); Unsaturated Iron Binding 156 ug/dL
[2024-05-23 07:49] LABS: Glucose, Whole Blood 151 mg/dL (60-115)
[2024-05-23] MEDS: Piperacillin Sodium/Tazobactam 4.5 GM in 0.9 % Sodium Chloride 100 ML IV ×3 (07:49→19:17)
[2024-05-23] MEDS: hydroCHLOROthiazide 25 MG TABLET PO (07:49)
[2024-05-23] MEDS: Enoxaparin Sodium 40 MG/0.4 ML SYRINGE SUBCUT ×2 (07:49→20:34)
[2024-05-23] MEDS: 0.9 % Sodium Chloride Flush 3 ML SYRINGE IVFLUSH ×3 (07:50→20:35)
[2024-05-23 11:11] LABS: Glucose, Whole Blood 163 mg/dL (60-115)
--- NOTE | 2024-05-23 11:22 | MHC.CM.PN ---
pt lives with sister and aunt ..pt is independent has own ride home dc plan home no servies
--- NOTE | 2024-05-23 11:29 | HO.PM.IMPN ---
Subjective Subjective Date of Service: 05/23/24 Interval History: No acute issues overnight. Mild nausea relieved with Zofran Review of Systems Denies chest pain Denies shortness of breath Denies nausea vomiting diarrhea Denies fever chills Constitutional Constitutional: Reports chills and Reports fever(s) Cardiovascular Cardiovascular: Reports no additional cardiovascular complaints Gastrointestinal Gastrointestinal: Reports no additional gastrointestinal complaints Genitourinary Genitourinary: Reports no additional male genitourinary complaints Physical Exam Vital Signs: Vital Signs: Last Vital Signs Temp 100.1 F 05/23/24 07:48 Pulse 95 05/23/24 07:48 Resp 16 05/23/24 07:48 BP 140/75 H 05/23/24 07:48 Pulse Ox 94 05/23/24 07:48 O2 Del Method Room Air 05/23/24 07:48 BMI result Body Mass Index 61.6 Const: Other: Awake alert oriented x3 no acute distress Resp: Other: Clear to auscultation bilaterally no rales rhonchi or wheezes Cardio: Other: No S4; positive S1-S2; no S3 murmurs rubs or gallops GI: Other: Obese positive bowel sounds Skin: Other: Extrem: Other: Pitting edema bilaterally. See admission photos for details of cellulitis Objective Data Active Medications Acetaminophen (Acetaminophen 325 Mg Tablet) 650 mg PO Q6H PRN PRN Reason: Pain, Mild (Pain Scale 1-3), fever or headache Last Admin: 05/23/24 09:44 Dose: 650 mg Documented By: KAYLYNN Calcium Carbonate (Calcium Carbonate 750 Mg Tab.Chew) 750 mg PO Q4H PRN PRN Reason: Heartburn Enoxaparin Sodium (Enoxaparin Sodium 40 Mg/0.4 Ml Syringe) 40 mg SUBCUT BID [facility] Last Admin: 05/23/24 07:49 Dose: 40 mg Documented By: KAYLYNN Glucose (Glucose Gel 15 Gm Gel..Gram.) 15 gm PO Q15M PRN; Protocol PRN Reason: per Hypoglycemia Standing Ord. Hydrochlorothiazide (Hydrochlorothiazide 25 Mg Tablet) 25 mg PO DAILY [facility]; Protocol Last Admin: 05/23/24 07:49 Dose: 25 mg Documented By: KAYLYNN Vancomycin HCl 1,250 mg/ (Sodium Chloride) 250 mls @ 166.667 mls/hr IV Q8H [facility] Last Admin: 05/23/24 09:44 Dose: 166.67 mls/hr Documented By: KAYLYNN Dextrose (D10) 250 mls @ 750 mls/hr IV Q15M PRN; Protocol PRN Reason: per Hypoglycemia Standing Ord. Piperacillin Sod/Tazobactam (Sod 4.5 gm/ Sodium Chloride) 100 mls @ 200 mls/hr IV Q6H [facility] Last Infusion: 05/23/24 08:27 Dose: Infused Documented By: KAYLYNN Insulin Human Lispro (Insulin Lispro 100 Unit/Ml 3 Ml Vial) 0 unit SUBCUT QIDACHS [facility]; Protocol Last Admin: 05/23/24 07:46 Dose: Not Given Documented By: KAYLYNN Non-Admin Reason: Patient Refused Magnesium Hydroxide (Milk Of Magnesia 30 Ml Oral.Susp) 30 ml PO DAILY PRN PRN Reason: Constipation Melatonin (Melatonin 3 Mg Tablet) 6 mg PO BEDTIME PRN PRN Reason: Insomnia Ondansetron HCl (Ondansetron Hcl 4 Mg/2 Ml Vial) 4 mg IVPUSH Q8H PRN PRN Reason: Nausea and Vomiting Last Admin: 05/23/24 02:05 Dose: 4 mg Documented By: ALEX Pharmacy Consult (Consult Rx Vancomycin Dosing) 1 each MISCELLANE DAILY PRN PRN Reason: Consult order Sodium Chloride (0.9 % Sodium Chloride Flush 3 Ml Syringe) 3 ml IVFLUSH [facility] Last Admin: 05/23/24 07:50 Dose: 3 ml Documented By: KAYLYNN Labs 05/23/24 04:17 05/23/24 04:17 Labs: Laboratory Results - last 24 hr 05/22/24 05/22/24 05/22/24 15:19 18:00 20:33 MCV 77.7 L MCH 23.9 L MCHC 30.8 L RDW 16.3 H Plt Count 186 MPV 10.5 Immature Gran % (Auto) 0.8 H Neut % (Auto) 88.2 H Lymph % (Auto) 4.8 L [place] % (Auto) 5.9 Eos % (Auto) 0.0 Baso % (Auto) 0.3 Lymph # (Auto) 0.5 L [place] # (Auto) 0.6 Eos # (Auto) 0.0 Baso # (Auto) 0.0 Abs Immat Gran (auto) 0.09 H Absolute Neuts (auto) 9.5 H Absolute Nucleated RBC 0.000 Nucleated RBC % (auto) 0.0 ESR 73 H Anion Gap 9 L Estim Creat Clear Calc 180.4 Estimated GFR > 60 POC Glucose 246 H Random Glucose 216 H Lactic Acid 2.6 H* Lactic Acid F/U @ 2Hr Calcium 8.5 Magnesium 2.0 Iron TIBC % Saturation Unsat Iron Binding Total Bilirubin 2.1 H AST 29 ALT 18 Alkaline Phosphatase 76 C-Reactive Protein 18.14 H Total Protein 7.4 Albumin 3.2 L 05/22/24 05/23/24 05/23/24 20:51 04:17 07:07 MCV 76.8 L MCH 23.7 L MCHC 30.9 L RDW 16.5 H Plt Count 189 MPV 10.7 Immature Gran % (Auto) 0.8 H Neut % (Auto) 87.4 H Lymph % (Auto) 5.2 L [place] % (Auto) 5.9 Eos % (Auto) 0.0 Baso % (Auto) 0.7 Lymph # (Auto) 0.8 L [place] # (Auto) 0.9 Eos # (Auto) 0.0 Baso # (Auto) 0.1 Abs Immat Gran (auto) 0.12 H Absolute Neuts (auto) 13.7 H Absolute Nucleated RBC 0.000 Nucleated RBC % (auto) 0.0 ESR Anion Gap 13 Estim Creat Clear Calc 177.1 Estimated GFR > 60 POC Glucose 151 H Random Glucose 202 H Lactic Acid Lactic Acid F/U @ 2Hr 2.0 Calcium 8.2 L Magnesium Iron 11 L TIBC 167 L % Saturation 7 L Unsat Iron Binding 156 Total Bilirubin AST ALT Alkaline Phosphatase C-Reactive Protein Total Protein Albumin 05/23/24 11:01 MCV MCH MCHC RDW Plt Count MPV Immature Gran % (Auto) Neut % (Auto) Lymph % (Auto) [place] % (Auto) Eos % (Auto) Baso % (Auto) Lymph # (Auto) [place] # (Auto) Eos # (Auto) Baso # (Auto) Abs Immat Gran (auto) Absolute Neuts (auto) Absolute Nucleated RBC Nucleated RBC % (auto) ESR Anion Gap Estim Creat Clear Calc Estimated GFR POC Glucose 163 H Random Glucose Lactic Acid Lactic Acid F/U @ 2Hr Calcium Magnesium Iron TIBC % Saturation Unsat Iron Binding Total Bilirubin AST ALT Alkaline Phosphatase C-Reactive Protein Total Protein Albumin Microbiology Microbiology Results: Microbiology 05/22/24 18:00 Blood Culture - Preliminary Blood - Venous Prelim: GPC Gram Stain only 05/22/24 18:00 Blood Culture - Preliminary Blood - Venous Prelim: GPC Gram Stain only Assessment and Plan (1) Sepsis: Status: Acute (2) Acute cellulitis: Status: Acute Plan This is a 38-year-old male with pertinent history of hypertension, cwc-veyxrzu-nvhfbxyin diabetes mellitus, obesity, asthma not on home oxygen, lower extremity edema who presents to the emergency department for concerns of lower extremity infection 1.Sepsis due to right lower extremity cellulitis(sepsis resolved) -vancomycin (2); Zosyn (1) added -adjust pending cultures 2.Raa-bvvqxtf-fxnftpagm diabetes mellitus with hyperglycemia (no formal diagnosis of diabetes previously) -lispro correctional scale -adjust as indicated -check A1c 3.Hypertension, uncontrolled -add lisinopril given new diagnosis of diabetes -continue Lasix -follow renals/divalents -adjust as indicated 4. Iron deficiency anemia -add iron 325 mg/vitamin-C 500 mg daily -follow clinically as outpatient Lovenox Full code Requires ongoing hospitalization to treat cellulitis with IV antibiotics. Quality Stroke Does the patient have a stroke diagnosis?: No VTE Prior VTE?: No VTE Risk Level:: Medical - moderate - high VTE Device Contraindication: Treatment Not Indicated VTE Drug Contraindication: N/A - Med Ordered
[2024-05-23] MEDS: Furosemide 40 MG TABLET PO (11:42)
[2024-05-23] MEDS: Insulin Lispro 100 UNIT/ML 3 ML VIAL SUBCUT (11:43)
--- NOTE | 2024-05-23 14:29 | HO.WOUND ---
Wound Consult: Initial 38yr old male admitted to [facility] on 05/22/24 - See progress notes and H&P for detailed history.? Wound consult placed for bilateral lower legs.? Patient agreeable to assessment and photo documentation.? The patient was initially resistive to my topical care recommendations. He was not able to identify why he was not agreeable to treatment and ultimately was agreeable to the below recommendations. See chart review for details but the patient is obsese and has a large abdominal girth impacting the lower leg swelling. He refused lower leg elevation as he was not able to sustain the position in bed and reports he is sitting with his legs dependent most of the day. He was educated on the importance of lower leg elevation and the benefits it would provide to fluid management. he reports understanding. Bariatric bed was ordered from basement patient instructed to attempt leg elevation when bariatric bed comes and provides him more room to move in bed - he was agreeable. The patient denies previous use of compression and is agreeable to OT consult for compression therapy. the right heel is noted for a dry fissure and his toe nails are yellow and thick. The patient reports he uses special nail clippers at home to be able to cut through the nail - he was advised to start treatment with a stripe marker at time of d/c. He reports understanding. The bilateral lower legs are noted for a significant amount of swelling, red warm firm lower legs with open wounds in various stages. The right lower loeg is noted for macerated epidermal layer despite this I still recommend xeroform to prevent wound bed trauma at the time of dressing change. Right Leg Right Medial Leg Left Left no photographed Etiology: ??Venous Dermatitis / Wounds Wound Bed: various stages of wound bed - partial thickness tissue loss - full thickness tissue loss with adherent moist slough on left leg and intact serous filled bulla Drainage / Odor: copious amount of yellow fluid - mild odor noted Edges: ? irregular Aneta wound: Red warm swelling noted Pain: tenderness reported Goals of Treatment: ? Lower Leg elevation - OT to eval for compression therapy and drainage absorption Recommendations: 1. Turn and Reposition every 2 hours and as needed for patient comfort.? Use pillows or wedges to support off loading positions. 2. Off Load all bony prominences with use of pillows and heel boots if needed.? Apply Preventative foams where needed. ? 3. Monitor for incontinence and moisture control, use barrier creams when needed for prevention and treatment. 4. Provide adequate and supplemental nutrition.? 5. Bariatric bed ordered. 6. When applicable maintain blood glucose levels per Providers order. 7. Bilateral Lower Legs - Elevate lower legs. Cleanse with Adia spray, pay dry. Apply xeroform to open wound beds, cover with super absorbency pad followed by Netting dressing. When absorbency pad is saturated replace absorptive pad. Change completely daily. Re-consult wound care Nurse for wound deterioration or wound changes.
[2024-05-23 16:22] LABS: Glucose, Whole Blood 123 mg/dL (60-115)
--- NOTE | 2024-05-23 17:20 | HE.PHANOTE ---
Re: [place] Stable renal function. Trough returned at 13.0. Continue current dose of 1,250 mg Q8H, with predicted trough of 18.2 and predicted AUC 544. Next trough 05/24 @ 1600.
[2024-05-23 20:34] LABS: Glucose, Whole Blood 135 mg/dL (60-115)
[2024-05-23] MEDS: Melatonin 3 MG TABLET 6 MG PO (21:35)
[2024-05-24] MEDS: Piperacillin Sodium/Tazobactam 4.5 GM in 0.9 % Sodium Chloride 100 ML IV ×4 (01:18→20:02)
[2024-05-24] MEDS: Zolpidem Tartrate 5 MG TABLET PO (01:51)
[2024-05-24] MEDS: vancomycin HCL 1,250 MG in 0.9 % Sodium Chloride 250 ML 166.67 MG IV ×2 (01:51→11:11)
[2024-05-24 03:33] VITALS: BP 148/69; PULSE 90; RESP 18; TEMP 37.3; O2SAT 94
[2024-05-24 06:21] LABS: MANUAL DIFF FLAG NO
[2024-05-24 06:31] LABS: Basophils Absolute Auto 0.1 X10*3/uL (0.0-0.2); Basophils Percent Auto 0.7 % (0-2); Eosinophils Absolute Auto 0.3 X10*3/uL (0.0-0.4); Hematocrit 33.4 % (42.0-52.0); Hemoglobin 10.3 g/dl (14.0-18.0); Imm Gran Abs Auto 0.21 X10*3/uL (0.00-0.03); Imm Gran Pct Auto 1.6 % (0.0-0.4); Lymphocytes Absolute Auto 1.5 X10*3/uL (1.2-4.9); Lymphocytes Percent Auto 11.7 % (20-40); Mean Corpuscular HGB Conc 30.8 g/dl (31.0-36.0); Mean Corpuscular Volume 77.7 fL (80.0-98.0); Mean Platelet Volume 11.3 fL (9.4-12.4); Monocytes Absolute Auto 1.2 X10*3/uL (0.1-1.2); Monocytes Percent Auto 9.6 % (2-11); Neutrophils Absolute Auto 9.6 x10*3/uL (2.0-8.3); Neutrophils Percent Auto 74.4 % (45-73); Platelet Count 177 X10*3/uL (160-400); Red Cell Distribution Width 16.9 % (11.0-16.0); White Blood Count 12.9 X10*3/uL (4.8-10.8)
[2024-05-24 07:08] LABS: Alanine Aminotransferase 23 U/L (0-40); Albumin Level 3.1 g/dL (3.5-5.0); Alkaline Phosphatase 88 U/L (39-117); Anion Gap 13 (12-20); Aspartate Amino Transferase 56 U/L (5-37); Bilirubin Total 1.5 mg/dL (0.0-1.0); Blood Urea Nitrogen 22 mg/dL (9-16); Calcium 8.8 mg/dL (8.4-10.2); Carbon Dioxide 26 mmol/L (22-29); Chloride 98 mmol/L (96-108); Creatinine Clr Calc Pharmacy 151.6; Estimated Glomerular Filt Rate > 60; Glucose Fasting 145 mg/dL (60-99); Sodium 133 mmol/L (135-145); Total Protein 7.4 g/dL (6.5-8.0)
[2024-05-24] MEDS: Enoxaparin Sodium 40 MG/0.4 ML SYRINGE SUBCUT ×2 (07:43→20:02)
[2024-05-24] MEDS: Furosemide 40 MG TABLET PO (07:43)
[2024-05-24] MEDS: 0.9 % Sodium Chloride Flush 3 ML SYRINGE IVFLUSH ×2 (07:44→23:15)
[2024-05-24 07:48] LABS: Glucose, Whole Blood 132 mg/dL (60-115)
[2024-05-24 07:49] VITALS: BP 154/77; PULSE 99; RESP 16; TEMP 37.7; O2SAT 99
--- NOTE | 2024-05-24 10:03 | HO.WOUND ---
Wound Consult: Follow up 38yr old male admitted to [facility] on 05/22/24 - See progress notes and H&P for detailed history.? Wound consult follow up for bilateral lower legs and bariatric bed? Arrival to bedside patient reports bed is not satisfactory. He reports the bed is firm and too soft at the same time. The patient reports she has not slept well in days and that dann intact be contributing to this overall discomfort. The patient exceeds the width of our standard Luis M bed - I do not recommend patient going back into that bed. Patient encouraged after his shower and dressing changes by staff mine warfare officer to attempt to rest and re-evaluate after. Direct care nurse notified of the conversation regarding his bed. The patient reports significant increase in lower leg comfort since dressing applied yesterday. The Medline Optilock absorbency dressing has limited availability at this time. 4 pads delivered to bedside direct care nurse aware. Unit to order direct order from storeroom (Medline MM# [id number] Opticlock absorbency dressing 6.5x10). No new topical recommendations at this time. Recommendations: 1. Turn and Reposition every 2 hours and as needed for patient comfort.? Use pillows or wedges to support off loading positions. 2. Off Load all bony prominences with use of pillows and heel boots if needed.? Apply Preventative foams where needed. ? 3. Monitor for incontinence and moisture control, use barrier creams when needed for prevention and treatment. 4. Provide adequate and supplemental nutrition.? 5. Bariatric bed ordered. 6. When applicable maintain blood glucose levels per Providers order. 7. Bilateral Lower Legs - Elevate lower legs. Cleanse with Adia spray, pay dry. Apply xeroform to open wound beds, cover with super absorbency pad followed by Netting dressing. When absorbency pad is saturated replace absorptive pad. Change completely daily. Re-consult wound care Nurse for wound deterioration or wound changes.
[2024-05-24 11:39] LABS: Glucose, Whole Blood 141 mg/dL (60-115)
--- NOTE | 2024-05-24 13:05 | P.PNIM_ITS ---
Subjective Subjective Date of Service: 05/24/24 Interval History: Notes improvement since admission. T-max 102 degrees Review of Systems Denies chest pain Denies shortness of breath Denies nausea vomiting diarrhea Denies fever chills Constitutional Constitutional: Reports chills and Reports fever(s) Cardiovascular Cardiovascular: Reports no additional cardiovascular complaints Gastrointestinal Gastrointestinal: Reports no additional gastrointestinal complaints Genitourinary Genitourinary: Reports no additional male genitourinary complaints Physical Exam 2 Vital Signs: Vital Signs: Last Vital Signs Temp 99.8 F 05/24/24 07:49 Pulse 99 05/24/24 07:49 Resp 16 05/24/24 07:49 BP 154/77 H 05/24/24 07:49 Pulse Ox 99 05/24/24 07:49 O2 Del Method Room Air 05/24/24 07:49 BMI result Body Mass Index 61.6 Const: Other: Awake alert oriented x3 no acute distress Resp: Other: Clear to auscultation bilaterally no rales rhonchi or wheezes Cardio: Other: No S4; positive S1-S2; no S3 murmurs rubs or gallops GI: Other: Obese positive bowel sounds Skin: Other: Extrem: Other: Pitting edema bilaterally. See admission photos for details of cellulitis Objective Data Active Medications Acetaminophen (Acetaminophen 325 Mg Tablet) 650 mg PO Q6H PRN PRN Reason: Pain, Mild (Pain Scale 1-3), fever or headache Last Admin: 05/23/24 21:35 Dose: 650 mg Documented By: ALEX Albuterol Sulfate (Albuterol Sulfate 90 Mcg 8 Gm Inhaler) 2 puff INHALE QID PRN PRN Reason: shortness of breath or wheezing Calcium Carbonate (Calcium Carbonate 750 Mg Tab.Chew) 750 mg PO Q4H PRN PRN Reason: Heartburn Enoxaparin Sodium (Enoxaparin Sodium 40 Mg/0.4 Ml Syringe) 40 mg SUBCUT BID [facility] Last Admin: 05/24/24 07:43 Dose: 40 mg Documented By: SHERRILL Furosemide (Furosemide 40 Mg Tablet) 40 mg PO DAILY [facility]; Protocol Last Admin: 05/24/24 07:43 Dose: 40 mg Documented By: SHERRILL Glucose (Glucose Gel 15 Gm Gel..Gram.) 15 gm PO Q15M PRN; Protocol PRN Reason: per Hypoglycemia Standing Ord. Vancomycin HCl 1,250 mg/ (Sodium Chloride) 250 mls @ 166.667 mls/hr IV Q8H [facility] Last Infusion: 05/24/24 12:45 Dose: Infused Documented By: SHERRILL Dextrose (D10) 250 mls @ 750 mls/hr IV Q15M PRN; Protocol PRN Reason: per Hypoglycemia Standing Ord. Piperacillin Sod/Tazobactam (Sod 4.5 gm/ Sodium Chloride) 100 mls @ 200 mls/hr IV Q6H [facility] Last Infusion: 05/24/24 08:54 Dose: Infused Documented By: SHERRILL Insulin Human Lispro (Insulin Lispro 100 Unit/Ml 3 Ml Vial) 0 unit SUBCUT QIDACHS [facility]; Protocol Last Admin: 05/24/24 11:58 Dose: Not Given Documented By: SHERRILL Non-Admin Reason: No Insulin Coverage Magnesium Hydroxide (Milk Of Magnesia 30 Ml Oral.Susp) 30 ml PO DAILY PRN PRN Reason: Constipation Melatonin (Melatonin 3 Mg Tablet) 6 mg PO BEDTIME PRN PRN Reason: Insomnia Last Admin: 05/23/24 21:35 Dose: 6 mg Documented By: ALEX Ondansetron HCl (Ondansetron Hcl 4 Mg/2 Ml Vial) 4 mg IVPUSH Q8H PRN PRN Reason: Nausea and Vomiting Last Admin: 05/23/24 02:05 Dose: 4 mg Documented By: ALEX Pharmacy Consult (Consult Rx Vancomycin Dosing) 1 each MISCELLANE DAILY PRN PRN Reason: Consult order Sodium Chloride (0.9 % Sodium Chloride Flush 3 Ml Syringe) 3 ml IVFLUSH [facility] Last Admin: 05/24/24 07:44 Dose: 3 ml Documented By: SHERRILL Zolpidem Tartrate (Zolpidem Tartrate 5 Mg Tablet) 5 mg PO BEDTIME PRN PRN Reason: Insomnia Last Admin: 05/24/24 01:51 Dose: 5 mg Documented By: ALEX Labs 05/24/24 05:19 05/24/24 05:19 Labs: Laboratory Results - last 24 hr 05/23/24 05/23/24 05/23/24 16:07 16:20 20:31 MCV MCH MCHC RDW Plt Count MPV Immature Gran % (Auto) Neut % (Auto) Lymph % (Auto) [place] % (Auto) Eos % (Auto) Baso % (Auto) Lymph # (Auto) [place] # (Auto) Eos # (Auto) Baso # (Auto) Abs Immat Gran (auto) Absolute Neuts (auto) Absolute Nucleated RBC Nucleated RBC % (auto) Anion Gap Estim Creat Clear Calc Estimated GFR POC Glucose 123 H 135 H Fasting Glucose Calcium Total Bilirubin AST ALT Alkaline Phosphatase Total Protein Albumin Vancomycin Trough 13.0 05/24/24 05/24/24 05/24/24 05:19 07:14 11:31 MCV 77.7 L MCH 24.0 L MCHC 30.8 L RDW 16.9 H Plt Count 177 MPV 11.3 Immature Gran % (Auto) 1.6 H Neut % (Auto) 74.4 H Lymph % (Auto) 11.7 L [place] % (Auto) 9.6 Eos % (Auto) 2.0 Baso % (Auto) 0.7 Lymph # (Auto) 1.5 [place] # (Auto) 1.2 Eos # (Auto) 0.3 Baso # (Auto) 0.1 Abs Immat Gran (auto) 0.21 H Absolute Neuts (auto) 9.6 H Absolute Nucleated RBC 0.000 Nucleated RBC % (auto) 0.0 Anion Gap 13 Estim Creat Clear Calc 151.6 Estimated GFR > 60 POC Glucose 132 H 141 H Fasting Glucose 145 H Calcium 8.8 D Total Bilirubin 1.5 H AST 56 H ALT 23 Alkaline Phosphatase 88 Total Protein 7.4 Albumin 3.1 L Vancomycin Trough Microbiology Microbiology Results: Microbiology 05/22/24 18:00 Blood Culture - Preliminary Blood - Venous Prelim: GPC Gram Stain only 05/22/24 18:00 Blood Culture - Preliminary Blood - Venous Prelim: GPC Gram Stain only Assessment and Plan (1) Acute cellulitis: Status: Acute (2) Sepsis: Status: Acute Plan This is a 38-year-old male with pertinent history of hypertension, uht-brermvl-jyhflrcwj diabetes mellitus, obesity, asthma not on home oxygen, lower extremity edema who presents to the emergency department for concerns of lower extremity infection 1.Sepsis due to right lower extremity cellulitis(sepsis resolved) -vancomycin (3) -preliminary culture Gram-positive cocci 2/2... Will DC Zosyn -follow up final culture 2.Ezw-ctvelmw-naefrsljz diabetes mellitus with hyperglycemia (no formal diagnosis of diabetes previously) -lispro correctional scale -adjust as indicated -check A1c 3.Hypertension, uncontrolled -add lisinopril given new diagnosis of diabetes -continue Lasix -follow renals/divalents -adjust as indicated 4. Iron deficiency anemia -add iron 325 mg/vitamin-C 500 mg daily -follow clinically as outpatient Lovenox Full code Requires ongoing hospitalization to treat cellulitis with IV antibiotics. Quality Stroke Does the patient have a stroke diagnosis?: No VTE Prior VTE?: No VTE Risk Level:: Medical - moderate - high VTE Device Contraindication: Treatment Not Indicated VTE Drug Contraindication: N/A - Med Ordered
--- NOTE | 2024-05-24 14:12 | MHC.CM.PN ---
per rounds pt not medically ready for dc dc plan re,maoins home no services
[2024-05-24 15:37] VITALS: BP 141/90; PULSE 90; RESP 14; TEMP 36.8; O2SAT 93
[2024-05-24] MEDS: Acetaminophen 325 MG TABLET 650 MG PO (16:22)
[2024-05-24 16:25] LABS: Glucose, Whole Blood 120 mg/dL (60-115)
[2024-05-24 16:28] LABS: Vancomycin Trough 18.7 mcg/mL (10.0-20.0)
[2024-05-24] MEDS: vancomycin HCL 1,000 MG in 0.9 % Sodium Chloride 250 ML 270 MG IV (17:42)
[2024-05-24 19:32] VITALS: BP 128/60; PULSE 83; RESP 16; TEMP 36.3; O2SAT 97
[2024-05-24 19:39] LABS: Glucose, Whole Blood 202 mg/dL (60-115)
[2024-05-24] MEDS: LORazepam 1 MG TABLET PO (20:03)
[2024-05-24] MEDS: Insulin Lispro 100 UNIT/ML 3 ML VIAL SUBCUT (20:03)
[2024-05-24] MEDS: diphenhydrAMINE HCL 25 MG CAPSULE PO (20:40)
[2024-05-25] MEDS: Piperacillin Sodium/Tazobactam 4.5 GM in 0.9 % Sodium Chloride 100 ML IV ×3 (01:07→13:44)
[2024-05-25] MEDS: vancomycin HCL 1,000 MG in 0.9 % Sodium Chloride 250 ML 270 MG IV ×2 (01:57→09:34)
[2024-05-25] MEDS: traMADoL HCL 50 MG TABLET 25 MG PO ×3 (02:48→20:06)
[2024-05-25 03:06] VITALS: BP 176/76; PULSE 99; RESP 18; TEMP 37.1; O2SAT 95
[2024-05-25 06:07] LABS: MANUAL DIFF FLAG NO
[2024-05-25 06:18] LABS: Basophils Absolute Auto 0.1 X10*3/uL (0.0-0.2); Basophils Percent Auto 0.5 % (0-2); Eosinophils Absolute Auto 0.3 X10*3/uL (0.0-0.4); Eosinophils Percent Auto 2.1 % (0-4); Hematocrit 30.5 % (42.0-52.0); Hemoglobin 9.5 g/dl (14.0-18.0); Imm Gran Abs Auto 0.55 X10*3/uL (0.00-0.03); Imm Gran Pct Auto 4.2 % (0.0-0.4); Lymphocytes Absolute Auto 1.6 X10*3/uL (1.2-4.9); Lymphocytes Percent Auto 12.4 % (20-40); Mean Corpuscular HGB Conc 31.1 g/dl (31.0-36.0); Mean Corpuscular Hemoglobin 23.8 pg (27.0-33.0); Mean Corpuscular Volume 76.3 fL (80.0-98.0); Monocytes Absolute Auto 1.1 X10*3/uL (0.1-1.2); Monocytes Percent Auto 8.5 % (2-11); Neutrophils Absolute Auto 9.4 x10*3/uL (2.0-8.3); Neutrophils Percent Auto 72.3 % (45-73); Platelet Count 217 X10*3/uL (160-400); Red Cell Distribution Width 16.6 % (11.0-16.0)
[2024-05-25 06:37] LABS: Alanine Aminotransferase 27 U/L (0-40); Albumin Level 2.8 g/dL (3.5-5.0); Alkaline Phosphatase 96 U/L (39-117); Anion Gap 11 (12-20); Aspartate Amino Transferase 50 U/L (5-37); Blood Urea Nitrogen 17 mg/dL (9-16); Calcium 8.6 mg/dL (8.4-10.2); Carbon Dioxide 28 mmol/L (22-29); Chloride 99 mmol/L (96-108); Creatinine Clr Calc Pharmacy 157.9; Estimated Glomerular Filt Rate > 60; Glucose Fasting 183 mg/dL (60-99); Potassium 3.4 mmol/L (3.3-5.1); Sodium 135 mmol/L (135-145); Total Protein 6.8 g/dL (6.5-8.0)
[2024-05-25 07:12] VITALS: BP 169/83; PULSE 99; RESP 20; TEMP 36.1; O2SAT 90
[2024-05-25] MEDS: Furosemide 40 MG TABLET PO (07:37)
[2024-05-25] MEDS: Enoxaparin Sodium 40 MG/0.4 ML SYRINGE SUBCUT ×2 (07:37→20:05)
[2024-05-25] MEDS: 0.9 % Sodium Chloride Flush 3 ML SYRINGE IVFLUSH ×2 (07:38→13:44)
[2024-05-25 07:39] LABS: Glucose, Whole Blood 141 mg/dL (60-115)
--- NOTE | 2024-05-25 10:33 | HO.PM.IMPN ---
Subjective Subjective Date of Service: 05/25/24 Interval History: Seen and evaluated this morning Denies any fever or chills his wounds still oozing Blood cx grew Strep C No other overnight events Review of Systems Review of Systems: Yes all other systems are reviewed and are negative Physical Exam Vital Signs: Vital Signs: Last Vital Signs Temp 97.0 F 05/25/24 07:12 Pulse 99 05/25/24 07:12 Resp 20 05/25/24 07:12 BP 169/83 H 05/25/24 07:12 Pulse Ox 90 L 05/25/24 07:12 O2 Del Method Room Air 05/25/24 07:12 BMI result Body Mass Index 61.6 Const: Other: Constitutional : Awake, interactive, morbidly obese, not in distress Neck : Normal inspection, Supple Cardiovascular : RRR, no JVP, significant bilateral lower extremity edema Respiratory : good bilateral air entry, no crackles, wheezes or rhonchi Gastrointestinal: soft, lax, Normal bowel sounds, Non tender, abdominal wall pimple with no drainage Skin : Warm, Dry, peripheral edema and open wounds that are oozing covered with dressing Neurological : Alert & oriented x3, No focal deficit Objective Data Active Medications Acetaminophen (Acetaminophen 325 Mg Tablet) 650 mg PO Q6H PRN PRN Reason: Pain, Mild (Pain Scale 1-3), fever or headache Last Admin: 05/24/24 16:22 Dose: 650 mg Documented By: SHERRILL Albuterol Sulfate (Albuterol Sulfate 90 Mcg 8 Gm Inhaler) 2 puff INHALE QID PRN PRN Reason: shortness of breath or wheezing Calcium Carbonate (Calcium Carbonate 750 Mg Tab.Chew) 750 mg PO Q4H PRN PRN Reason: Heartburn Enoxaparin Sodium (Enoxaparin Sodium 40 Mg/0.4 Ml Syringe) 40 mg SUBCUT BID [facility] Last Admin: 05/25/24 07:37 Dose: 40 mg Documented By: SHERRILL Furosemide (Furosemide 40 Mg Tablet) 40 mg PO DAILY [facility]; Protocol Last Admin: 05/25/24 07:37 Dose: 40 mg Documented By: SHERRILL Glucose (Glucose Gel 15 Gm Gel..Gram.) 15 gm PO Q15M PRN; Protocol PRN Reason: per Hypoglycemia Standing Ord. Dextrose (D10) 250 mls @ 750 mls/hr IV Q15M PRN; Protocol PRN Reason: per Hypoglycemia Standing Ord. Piperacillin Sod/Tazobactam (Sod 4.5 gm/ Sodium Chloride) 100 mls @ 200 mls/hr IV Q6H [facility] Last Infusion: 05/25/24 09:21 Dose: Infused Documented By: SHERRILL Vancomycin HCl 1,000 mg/ (Sodium Chloride) 270 mls @ 270 mls/hr IV Q8H [facility] Last Admin: 05/25/24 09:34 Dose: 270 mls/hr Documented By: SHERRILL Insulin Human Lispro (Insulin Lispro 100 Unit/Ml 3 Ml Vial) [facility]; Protocol Last Admin: 05/25/24 08:43 Dose: Not Given Documented By: SHERRILL Non-Admin Reason: No Insulin Coverage Magnesium Hydroxide (Milk Of Magnesia 30 Ml Oral.Susp) 30 ml PO DAILY PRN PRN Reason: Constipation Melatonin (Melatonin 3 Mg Tablet) 6 mg PO BEDTIME PRN PRN Reason: Insomnia Last Admin: 05/23/24 21:35 Dose: 6 mg Documented By: ALEX Ondansetron HCl (Ondansetron Hcl 4 Mg/2 Ml Vial) 4 mg IVPUSH Q8H PRN PRN Reason: Nausea and Vomiting Last Admin: 05/23/24 02:05 Dose: 4 mg Documented By: ALEX Pharmacy Consult (Consult Rx Vancomycin Dosing) 1 each MISCELLANE DAILY PRN PRN Reason: Consult order Sodium Chloride (0.9 % Sodium Chloride Flush 3 Ml Syringe) [facility] Last Admin: 05/25/24 07:38 Dose: 3 ml Documented By: SHERRILL Tramadol HCl (Tramadol Hcl 50 Mg Tablet) 25 mg PO Q6H PRN PRN Reason: Pain, Severe (Pain Scale 7-10) Last Admin: 05/25/24 02:48 Dose: 25 mg Documented By: BEKAH Zolpidem Tartrate (Zolpidem Tartrate 5 Mg Tablet) 5 mg PO BEDTIME PRN PRN Reason: Insomnia Last Admin: 05/24/24 01:51 Dose: 5 mg Documented By: ALEX Labs 05/25/24 05:40 05/25/24 05:40 Labs: Laboratory Results - last 24 hr 05/24/24 05/24/24 05/24/24 11:31 15:58 16:17 MCV MCH MCHC RDW Plt Count MPV Immature Gran % (Auto) Neut % (Auto) Lymph % (Auto) Rhea % (Auto) Eos % (Auto) Baso % (Auto) Lymph # (Auto) Rhea # (Auto) Eos # (Auto) Baso # (Auto) Abs Immat Gran (auto) Absolute Neuts (auto) Absolute Nucleated RBC Nucleated RBC % (auto) Anion Gap Estim Creat Clear Calc Estimated GFR POC Glucose 141 H 120 H Fasting Glucose Calcium Total Bilirubin AST ALT Alkaline Phosphatase Total Protein Albumin Vancomycin Trough 18.7 05/24/24 05/25/24 05/25/24 19:34 05:40 07:16 MCV 76.3 L MCH 23.8 L MCHC 31.1 RDW 16.6 H Plt Count 217 MPV 11.0 Immature Gran % (Auto) 4.2 H Neut % (Auto) 72.3 Lymph % (Auto) 12.4 L Rhea % (Auto) 8.5 Eos % (Auto) 2.1 Baso % (Auto) 0.5 Lymph # (Auto) 1.6 Rhea # (Auto) 1.1 Eos # (Auto) 0.3 Baso # (Auto) 0.1 Abs Immat Gran (auto) 0.55 H Absolute Neuts (auto) 9.4 H Absolute Nucleated RBC 0.000 Nucleated RBC % (auto) 0.0 Anion Gap 11 L Estim Creat Clear Calc 157.9 Estimated GFR > 60 POC Glucose 202 H 141 H Fasting Glucose 183 H Calcium 8.6 Total Bilirubin 1.0 AST 50 H ALT 27 Alkaline Phosphatase 96 Total Protein 6.8 Albumin 2.8 L Vancomycin Trough Microbiology Microbiology Results: Microbiology 05/22/24 18:00 Blood Culture - Final Blood - Venous Streptococcus group c 05/22/24 18:00 Blood Culture - Final Blood - Venous Streptococcus group c Assessment and Plan (1) Sepsis: Status: Acute (2) Acute cellulitis: Status: Acute (3) Bilateral lower extremity edema: Status: Acute (4) Bacteremia due to Streptococcus: Status: Acute Plan This is a 38-year-old male with pertinent history of hypertension, [id number] diabetes mellitus, obesity, asthma not on home oxygen, lower extremity edema who presents to the emergency department for concerns of lower extremity infection # Sepsis due to right lower extremity cellulitis complicated with Strep C bacteremia repeat blood cultures 05/25 Continue vancomycin JOSE Carmichael ID consulted Wound care, plan for home VNA OT to get him pump therapy for lower extremities # Fdz-jztdciw-tsabradvw diabetes mellitus with hyperglycemia no formal diagnosis of diabetes previously lispro correctional scale check A1c # Hypertension, uncontrolled add lisinopril given new diagnosis of diabetes continue Lasix follow renals/divalents adjust as indicated # Iron deficiency anemia iron 325 mg/vitamin-C 500 mg daily Follow clinically as outpatient Lovenox Full code Requires ongoing hospitalization to treat cellulitis with IV antibiotics pending ID evaluation and repeated blood cultures Quality Stroke Does the patient have a stroke diagnosis?: No VTE Prior VTE?: No VTE Risk Level:: Medical - moderate - high VTE Device Contraindication: Treatment Not Indicated VTE Drug Contraindication: N/A - Med Ordered
[2024-05-25] MEDS: Acetaminophen 325 MG TABLET 650 MG PO ×2 (10:56→20:07)
[2024-05-25 11:15] LABS: Glucose, Whole Blood 173 mg/dL (60-115)
[2024-05-25 11:38] LABS: Estimated Average Glucose 154 mg/dL; Hemoglobin A1C 126.5114 umol/L; Total Hemoglobin (HGBA1C) 2372.9201 umol/L
[2024-05-25] MEDS: Insulin Lispro 100 UNIT/ML 3 ML VIAL SUBCUT (12:02)
[2024-05-25 15:00] VITALS: BP 170/74; PULSE 96; RESP 18; TEMP 36.2; O2SAT 95
--- NOTE | 2024-05-25 15:30 | HO.WOUND ---
Wound Consult: Follow up 38yr old male admitted to [facility] [place] [facility] on 05/22/24 - See progress notes and H&P for detailed history.? Wound consult follow up for bilateral lower legs and bariatric bed? Arrival to bedside patient reports bed was not satisfactory. He was recently switched back to Standard [place] Bed - weight limit for the bed is 500lb and patient current weight per chart review is 479.16lbs with in range of bed weight limits. Patient ok to continue in standard bed at this time. The patient reports continued comfort with dressings. Changed over last 24 hours was needed 3 times. The Medline Optilock absorbency dressing has limited availability at this time - ordered by unit pending arrival. (Medline MM# [id number] Opticlock absorbency dressing 6.5x10). Recently changed by waitstaff captain not needed at the time of my arrival. When talking to the patient regarding d/c planning there is concern for safe planned discharge. He will not be able to perform the dressing changes himself as he is not able to reach his lower legs given his body habitus. He does not qualify for VNA services as he does not have a PCP. He does not have access to supplies as his is not yet set up with insurance coverage. These are all limiting factors for his success at home. Case management and provider continue to work towards safe and successful discharge. No new topical recommendations at this time. Recommendations: 1. Turn and Reposition every 2 hours and as needed for patient comfort.? Use pillows or wedges to support off loading positions. 2. Off Load all bony prominences with use of pillows and heel boots if needed.? Apply Preventative foams where needed. ? 3. Monitor for incontinence and moisture control, use barrier creams when needed for prevention and treatment. 4. Provide adequate and supplemental nutrition.? 5. Bariatric bed ordered. 6. When applicable maintain blood glucose levels per Providers order. 7. Bilateral Lower Legs - Elevate lower legs. Cleanse with Adia spray, pay dry. Apply Durafiber to open wound beds, cover with super absorbency pad followed by elastic retention netting size 9. When absorbency pad is saturated replace absorptive pad Durafiber can be changed every other day. Change every other day and PRN. Patient should follow up outpt with OT for Lymphedema and compression therapy. For discharge: Recommend patient to consider Edema Wear outpt as not available inpatient. These can be obtained from the following website. [email or web address]. Re-consult wound care Nurse for wound deterioration or wound changes.
[2024-05-25] MEDS: cefTRIAXone sodium 2 GM VIAL IVPUSH (16:01)
[2024-05-25 16:06] LABS: Glucose, Whole Blood 146 mg/dL (60-115)
--- NOTE | 2024-05-25 16:19 | MHC.CM.PN ---
YOJANA MET WITH PT SEVERAL TIMES THROUGHOUT THE DAY PT HAD NO PCP AND IS AWARE HE WILL NEED DRESSING CHANGES AT [place] HE AGREED TO CM TRYING TO OBTAIN A PCP RN [employer]IG[employer]ORS INVOLVED AND WILL FOLLOW PT NEW PCP APPT MADE FOR 06/01/24 AT 1100 HOURS YOJANA WILL [facility]ANGE [facility]PT RN NAVIGATION WILL ASSIST WITH ONGOING PT1 ARRANGEMENTS PT SAYS HIS SISTER CAN ASSIST WITH DRESSING CHANGES WELL, HOWEVER WOULD NOT BE WILLING TO COME IN FOR A TEACH, OR PAY ATTENTION TO A VIRTUAL TEACH
[2024-05-25 19:47] VITALS: BP 170/70; PULSE 90; RESP 14; TEMP 37; O2SAT 97
[2024-05-25 19:54] LABS: Glucose, Whole Blood 140 mg/dL (60-115)
[2024-05-25] MEDS: LORazepam 2 MG/ML VIAL 1 MG IVPUSH (20:42)
[2024-05-25] MEDS: Zolpidem Tartrate 5 MG TABLET PO (22:43)
[2024-05-25] MEDS: Melatonin 3 MG TABLET 6 MG PO (22:43)
[2024-05-26] MEDS: 0.9 % Sodium Chloride Flush 3 ML SYRINGE IVFLUSH ×4 (00:01→21:53)
[2024-05-26 01:58] VITALS: BP 167/79; PULSE 97; RESP 16; TEMP 36.1; O2SAT 93
[2024-05-26] MEDS: traMADoL HCL 50 MG TABLET 25 MG PO ×3 (03:37→21:42)
[2024-05-26 04:31] LABS: Glucose, Whole Blood 144 mg/dL (60-115)
[2024-05-26 06:59] VITALS: BP 184/85; PULSE 98; RESP 20; TEMP 36.9; O2SAT 94
[2024-05-26 07:36] LABS: Glucose, Whole Blood 157 mg/dL (60-115)
[2024-05-26] MEDS: Insulin Lispro 100 UNIT/ML 3 ML VIAL SUBCUT ×3 (07:46→20:11)
[2024-05-26] MEDS: Furosemide 40 MG TABLET PO (07:47)
[2024-05-26] MEDS: Enoxaparin Sodium 40 MG/0.4 ML SYRINGE SUBCUT ×2 (07:48→20:12)
[2024-05-26 07:50] VITALS: BP 160/56
[2024-05-26] MEDS: Acetaminophen 325 MG TABLET 650 MG PO (08:38)
--- NOTE | 2024-05-26 09:02 | HO.PM.IMPN ---
Subjective Subjective Date of Service: 05/26/24 Interval History: Seen and evaluated this morning his wounds still oozing and requires multiple dressing chages Blood cx grew Strep C , repeat pending No other overnight events Review of Systems Review of Systems: Yes all other systems are reviewed and are negative Physical Exam Vital Signs: Vital Signs: Last Vital Signs Temp 98.4 F 05/26/24 06:59 Pulse 98 05/26/24 06:59 Resp 20 05/26/24 06:59 BP 160/56 H 05/26/24 07:50 Pulse Ox 94 05/26/24 06:59 O2 Del Method Room Air 05/26/24 06:59 BMI result Body Mass Index 61.6 Const: Other: Constitutional : Awake, interactive, morbidly obese, not in distress Neck : Normal inspection, Supple Cardiovascular : RRR, no JVP, significant bilateral lower extremity edema Respiratory : good bilateral air entry, no crackles, wheezes or rhonchi Gastrointestinal: soft, lax, Normal bowel sounds, Non tender, abdominal wall pimple with no drainage Skin : Warm, Dry, peripheral edema and open wounds that are oozing covered with dressing Neurological : Alert & oriented x3, No focal deficit Objective Data Active Medications Acetaminophen (Acetaminophen 325 Mg Tablet) 650 mg PO Q6H PRN PRN Reason: Pain, Mild (Pain Scale 1-3), fever or headache Last Admin: 05/26/24 08:38 Dose: 650 mg Documented By: JUAN CARLOS Albuterol Sulfate (Albuterol Sulfate 90 Mcg 8 Gm Inhaler) 2 puff INHALE QID PRN PRN Reason: shortness of breath or wheezing Calcium Carbonate (Calcium Carbonate 750 Mg Tab.Chew) 750 mg PO Q4H PRN PRN Reason: Heartburn Ceftriaxone Sodium (Ceftriaxone Sodium 2 Gm Vial) 2 gm IVPUSH Q24H [facility] Last Admin: 05/25/24 16:01 Dose: 2 gm Documented By: LUCIAME Enoxaparin Sodium (Enoxaparin Sodium 40 Mg/0.4 Ml Syringe) 40 mg SUBCUT BID [facility] Last Admin: 05/26/24 07:48 Dose: 40 mg Documented By: JUAN CARLSO Furosemide (Furosemide 40 Mg Tablet) 40 mg PO DAILY [facility]; Protocol Last Admin: 05/26/24 07:47 Dose: 40 mg Documented By: JUAN CARLOS Glucose (Glucose Gel 15 Gm Gel..Gram.) 15 gm PO Q15M PRN; Protocol PRN Reason: per Hypoglycemia Standing Ord. Dextrose (D10) 250 mls @ 750 mls/hr IV Q15M PRN; Protocol PRN Reason: per Hypoglycemia Standing Ord. Insulin Human Lispro (Insulin Lispro 100 Unit/Ml 3 Ml Vial) 0 unit SUBCUT [facility]; Protocol Last Admin: 05/26/24 07:46 Dose: 2 unit Documented By: JUAN CARLOS Magnesium Hydroxide (Milk Of Magnesia 30 Ml Oral.Susp) 30 ml PO DAILY PRN PRN Reason: Constipation Melatonin (Melatonin 3 Mg Tablet) 6 mg PO BEDTIME PRN PRN Reason: Insomnia Last Admin: 05/25/24 22:43 Dose: 6 mg Documented By: ANETA Ondansetron HCl (Ondansetron Hcl 4 Mg/2 Ml Vial) 4 mg IVPUSH Q8H PRN PRN Reason: Nausea and Vomiting Last Admin: 05/23/24 02:05 Dose: 4 mg Documented By: ALEX Sodium Chloride (0.9 % Sodium Chloride Flush 3 Ml Syringe) [facility] Last Admin: 05/26/24 07:49 Dose: 3 ml Documented By: JUAN CARLOS Tramadol HCl (Tramadol Hcl 50 Mg Tablet) 25 mg PO Q6H PRN PRN Reason: Pain, Severe (Pain Scale 7-10) Last Admin: 05/26/24 03:37 Dose: 25 mg Documented By: ANTOIC Zolpidem Tartrate (Zolpidem Tartrate 5 Mg Tablet) 5 mg PO BEDTIME PRN PRN Reason: Insomnia Last Admin: 05/25/24 22:43 Dose: 5 mg Documented By: ANETA Labs 05/25/24 05:40 05/25/24 05:40 Labs: Laboratory Results - last 24 hr 05/25/24 05/25/24 05/25/24 05:40 11:03 15:58 POC Glucose 173 H 146 H Estimat Average Glucose 154 Hemoglobin A1c % 7.0 H 05/25/24 05/26/24 05/26/24 19:48 04:26 07:16 POC Glucose 140 H 144 H 157 H Estimat Average Glucose Hemoglobin A1c % Microbiology Microbiology Results: Microbiology 05/22/24 18:00 Blood Culture - Final Blood - Venous Streptococcus group c 05/22/24 18:00 Blood Culture - Final Blood - Venous Streptococcus group c Assessment and Plan (1) Bacteremia due to Streptococcus: Status: Acute (2) Acute cellulitis: Status: Acute (3) Bilateral lower extremity edema: Status: Acute Plan This is a 38-year-old male with pertinent history of hypertension, spn-[id number] diabetes mellitus, obesity, asthma not on home oxygen, lower extremity edema who presents to the emergency department for concerns of lower extremity infection # Sepsis due to right lower extremity cellulitis complicated with Strep C bacteremia repeat blood cultures 05/25 DC Zosyn and Vancomycin Start Ceftriaxone 05/25 ID consult Wound care, plan for home VNA OT to get him pump therapy for lower extremities , it seems that will be a Co-Pay that he can not afford The patient has new PCP appointment 06/01, CW working on home services as he needs daily dressing and can not do it himself, his sister will be contacted to see if she can help # newly diagnosed Ubv-jihhdse-toyqwgpff diabetes mellitus with hyperglycemia no formal diagnosis of diabetes previously A1c of 7 lispro correctional scale # Hypertension, uncontrolled add lisinopril given new diagnosis of diabetes continue Lasix follow renals/divalents adjust as indicated # Iron deficiency anemia iron 325 mg/vitamin-C 500 mg daily Follow clinically as outpatient Lovenox Full code Requires ongoing hospitalization to treat cellulitis with IV antibiotics pending ID evaluation and repeated blood cultures Quality Stroke Does the patient have a stroke diagnosis?: No VTE Prior VTE?: No VTE Risk Level:: Medical - moderate - high VTE Device Contraindication: Treatment Not Indicated VTE Drug Contraindication: N/A - Med Ordered
[2024-05-26 11:14] LABS: Glucose, Whole Blood 152 mg/dL (60-115)
[2024-05-26] MEDS: cefTRIAXone sodium 2 GM VIAL IVPUSH (14:48)
[2024-05-26 15:27] VITALS: PULSE 93; RESP 18; TEMP 36.6; O2SAT 94
[2024-05-26 15:32] VITALS: BP 162/74
[2024-05-26 16:45] LABS: Glucose, Whole Blood 131 mg/dL (60-115)
[2024-05-26 19:18] LABS: Glucose, Whole Blood 156 mg/dL (60-115)
[2024-05-26 19:28] VITALS: BP 186/90; PULSE 91; RESP 18; TEMP 36.3; O2SAT 96
[2024-05-26] MEDS: Zolpidem Tartrate 5 MG TABLET PO (21:42)
[2024-05-26] MEDS: Melatonin 3 MG TABLET 6 MG PO (21:42)
--- NOTE | 2024-05-26 21:59 | W.PM.IDCN ---
History of Present Illness Data of Consult Service Date: 05/26/24 Requesting physician: Joshua Khalil Primary Care Provider: Unknown Physician HPI Reason for consult: Group C strep bacteremia He presents with right more than left leg pain and swelling He has had cellulitis in the past. He has allergy to Clindamycin and Doxycycline with hives. He has Group C strep bacteremia 05/03 now clearing second set. Review of Systems Review of Systems: Yes all other systems are reviewed and are negative PMFSH Past Medical History Medical History Obesity Asthma Family History Family history: reviewed and not pertinent Social History Social History Household Members: Family Housing: House Do you presently have visiting nurse or other home services: No Patient Tobacco Use Status: Never used Tobacco Substance Use Type: Marijuana service: No Meds Allergies Allergy/AdvReac Type Severity Reaction Status Date / Time clindamycin [CLINDAMYCIN] Allergy Unknown HIVES Verified 05/22/24 14:31 doxycycline [DOXYCYCLINE] Allergy Unknown HIVES Verified 05/22/24 14:31 Latex, Natural Rubber AdvReac Itching Verified 05/23/24 01:56 Active Medications: Current Medications Acetaminophen (Acetaminophen 325 Mg Tablet) 650 mg PO Q6H PRN PRN Reason: Pain, Mild (Pain Scale 1-3), fever or headache Last Admin: 05/26/24 08:38 Dose: 650 mg Albuterol Sulfate (Albuterol Sulfate 90 Mcg 8 Gm Inhaler) 2 puff INHALE QID PRN PRN Reason: shortness of breath or wheezing Calcium Carbonate (Calcium Carbonate 750 Mg Tab.Chew) 750 mg PO Q4H PRN PRN Reason: Heartburn Ceftriaxone Sodium (Ceftriaxone Sodium 2 Gm Vial) 2 gm IVPUSH Q24H [facility] Last Admin: 05/26/24 14:48 Dose: 2 gm Enoxaparin Sodium (Enoxaparin Sodium 40 Mg/0.4 Ml Syringe) 40 mg SUBCUT BID [facility] Last Admin: 05/26/24 20:12 Dose: 40 mg Furosemide (Furosemide 40 Mg Tablet) 40 mg PO DAILY [facility]; Protocol Last Admin: 05/26/24 07:47 Dose: 40 mg Glucose (Glucose Gel 15 Gm Gel..Gram.) 15 gm PO Q15M PRN; Protocol PRN Reason: per Hypoglycemia Standing Ord. Dextrose (D10) 250 mls @ 750 mls/hr IV Q15M PRN; Protocol PRN Reason: per Hypoglycemia Standing Ord. Insulin Human Lispro (Insulin Lispro 100 Unit/Ml 3 Ml Vial) [facility]; Protocol Last Admin: 05/26/24 20:11 Dose: 2 unit Magnesium Hydroxide (Milk Of Magnesia 30 Ml Oral.Susp) 30 ml PO DAILY PRN PRN Reason: Constipation Melatonin (Melatonin 3 Mg Tablet) 6 mg PO BEDTIME PRN PRN Reason: Insomnia Last Admin: 05/26/24 21:42 Dose: 6 mg Ondansetron HCl (Ondansetron Hcl 4 Mg/2 Ml Vial) 4 mg IVPUSH Q8H PRN PRN Reason: Nausea and Vomiting Last Admin: 05/23/24 02:05 Dose: 4 mg Sodium Chloride (0.9 % Sodium Chloride Flush 3 Ml Syringe) 3 ml IVFLUSH [facility] Last Admin: 05/26/24 21:53 Dose: 3 ml Tramadol HCl (Tramadol Hcl 50 Mg Tablet) 25 mg PO Q6H PRN PRN Reason: Pain, Severe (Pain Scale 7-10) Last Admin: 05/26/24 21:42 Dose: 25 mg Zolpidem Tartrate (Zolpidem Tartrate 5 Mg Tablet) 5 mg PO BEDTIME PRN PRN Reason: Insomnia Last Admin: 05/26/24 21:42 Dose: 5 mg Home Medications ?Medication ?Instructions ?Recorded ?Confirmed ?Last Taken ?Type acetaminophen 500 mg tablet 1,000 mg PO Q8H PRN Headache 05/22/24 05/22/24 Unknown History naproxen sodium 220 mg tablet 220 mg PO Q8H PRN Headache 05/22/24 05/22/24 Unknown History (Aleve) Physical Exam Vital Signs: Vital Signs: Last Vital Signs Temp 97.4 F 05/26/24 19:28 Pulse 91 05/26/24 19:28 Resp 18 05/26/24 19:28 BP 186/90 H 05/26/24 19:28 Pulse Ox 96 05/26/24 19:28 O2 Del Method Room Air 05/26/24 19:28 BMI result Body Mass Index 61.6 Const: General: cooperative HEENT: Head: Yes normal to inspection Face and sinus: Yes normal facial exam Mouth: Normal oral and palatal mucosa present Teeth and gingiva: dentition normal Eyes: General: appearance normal, both eyes and all related structures Pupils: Equal, round and reactive pupils present Resp: Effort & Inspection: normal respiratory effort Cardio: Rate: regular rate Rhythm: regular rhythm GI: Palpation (GI): Soft to palpation and nontender : General: Yes no CVA tenderness Back/Spine/Pelvis: Back: no CVA tenderness Skin: General skin exam: no rashes or lesions noted Neuro: General: moves all extremities Cranial nerves: Yes Equal, round and reactive pupils present Extrem: Other: right leg reddened and swollen ,firmness up near groin area Psych: Appearance: grossly normal Results Labs 05/25/24 05:40 05/25/24 05:40 Microbiology Microbiology Results: Microbiology 05/25/24 08:40 Blood - Venous Blood Culture - Preliminary No growth after 24 hours. 05/25/24 08:30 Blood - Venous Blood Culture - Preliminary No growth after 24 hours. 05/22/24 18:00 Blood - Venous Blood Culture - Final Streptococcus group c 05/22/24 18:00 Blood - Venous Blood Culture - Final Streptococcus group c Assessment and Plan (1) Bacteremia due to Streptococcus: Status: Acute (2) Sepsis: Status: Acute Plan Check leg u/s evaluate any clot right LE due to firmness area. If abscess found evaluate Surgery. Would check echo evaluate endocarditis. Would likely switch to po cephalosporin for 14 d total antibiotics starting from first negative blood culture. Would then consider Penicillin V 500 mg bid prophylaxis after indefinitely. antifungal between toes.
[2024-05-27] MEDS: LORazepam 2 MG/ML VIAL 0.5 MG IVPUSH (00:23)
[2024-05-27 03:32] VITALS: BP 158/68; PULSE 102; RESP 18; TEMP 36.2; O2SAT 95
[2024-05-27] MEDS: traMADoL HCL 50 MG TABLET 25 MG PO (03:48)
[2024-05-27] MEDS: Acetaminophen 325 MG TABLET 650 MG PO (03:49)
[2024-05-27] MEDS: diphenhydrAMINE HCL 50 MG/ML VIAL 25 MG IVPUSH ×2 (03:50→20:24)
--- NOTE | 2024-05-27 04:04 | PC.NURSE ---
Addendum entered by Mirian Morales RN 05/27/24 06:07: 0545; Went into patients room to re-dress RLE dressing, upon completion patient began to rock back and forth and stated I dont know what this feeling is, It feels like im withdrawing . Made MD Montgomery aware of situation and let patient know that it could be lack of sleep. No new orders place at this time. Original Note: 2141; Patient requesting sleeping medications- Ambien and Melatonin given per request 2329; Patient stating he cannot sleep- patient pacing in room, rolling back and forth in bed- tried to sleep with no avail 0000; MD Montgomery notified regarding patients inability to sleep/ calm down- one time dose of IV Ativan ordered and given 0200; Patient still awake, verbalizing he wishes he could sleep/relax 0310; Patient verbalized I have barley slept since I've been here, I'm itchy from these dressings, I want to sleep and I am in pain . MD Montgomery notified regarding patients concerns- IV Benadryl ordered and given. Patient requested pain meds- PRN Tylenol and Tramadol given per patient request
[2024-05-27 07:58] VITALS: BP 190/100; PULSE 88; RESP 16; TEMP 36.4; O2SAT 95
[2024-05-27 08:00] VITALS: BP 190/100; PULSE 88; RESP 16; TEMP 36.4; O2SAT 95
[2024-05-27] MEDS: Furosemide 40 MG TABLET PO (08:38)
[2024-05-27] MEDS: Enoxaparin Sodium 40 MG/0.4 ML SYRINGE SUBCUT ×2 (08:39→20:25)
[2024-05-27] MEDS: 0.9 % Sodium Chloride Flush 3 ML SYRINGE IVFLUSH ×3 (08:40→23:29)
--- NOTE | 2024-05-27 09:54 | P.PNIM_ITS ---
Subjective Subjective Date of Service: 05/27/24 Interval History: Seen and evaluated this morning his wounds still oozing and requires multiple dressing chages Blood cx grew Strep C , repeat pending No other overnight events Review of Systems Review of Systems: Yes all other systems are reviewed and are negative Physical Exam 2 Vital Signs: Vital Signs: Last Vital Signs Temp 97.6 F 05/27/24 08:00 Pulse 88 05/27/24 08:00 Resp 16 05/27/24 08:00 BP 190/100 H 05/27/24 08:00 Pulse Ox 95 05/27/24 08:00 O2 Del Method Room Air 05/27/24 08:00 BMI result Body Mass Index 61.6 Objective Data Active Medications Acetaminophen (Acetaminophen 325 Mg Tablet) 650 mg PO Q6H PRN PRN Reason: Pain, Mild (Pain Scale 1-3), fever or headache Last Admin: 05/27/24 03:49 Dose: 650 mg Documented By: SAURABH Albuterol Sulfate (Albuterol Sulfate 90 Mcg 8 Gm Inhaler) 2 puff INHALE QID PRN PRN Reason: shortness of breath or wheezing Calcium Carbonate (Calcium Carbonate 750 Mg Tab.Chew) 750 mg PO Q4H PRN PRN Reason: Heartburn Ceftriaxone Sodium (Ceftriaxone Sodium 2 Gm Vial) 2 gm IVPUSH Q24H [facility] Last Admin: 05/26/24 14:48 Dose: 2 gm Documented By: JUAN CARLOS Enoxaparin Sodium (Enoxaparin Sodium 40 Mg/0.4 Ml Syringe) 40 mg SUBCUT BID [facility] Last Admin: 05/27/24 08:39 Dose: 40 mg Documented By: JAGJITRP Furosemide (Furosemide 40 Mg Tablet) 40 mg PO DAILY [facility]; Protocol Last Admin: 05/27/24 08:38 Dose: 40 mg Documented By: SHANELL Glucose (Glucose Gel 15 Gm Gel..Gram.) 15 gm PO Q15M PRN; Protocol PRN Reason: per Hypoglycemia Standing Ord. Dextrose (D10) 250 mls @ 750 mls/hr IV Q15M PRN; Protocol PRN Reason: per Hypoglycemia Standing Ord. Insulin Human Lispro (Insulin Lispro 100 Unit/Ml 3 Ml Vial) 0 unit SUBCUT QIDACHS [facility]; Protocol Last Admin: 05/27/24 08:34 Dose: Not Given Documented By: HO.PODMORP Non-Admin Reason: No Insulin Coverage Magnesium Hydroxide (Milk Of Magnesia 30 Ml Oral.Susp) 30 ml PO DAILY PRN PRN Reason: Constipation Melatonin (Melatonin 3 Mg Tablet) 6 mg PO BEDTIME PRN PRN Reason: Insomnia Last Admin: 05/26/24 21:42 Dose: 6 mg Documented By: SAURABH Ondansetron HCl (Ondansetron Hcl 4 Mg/2 Ml Vial) 4 mg IVPUSH Q8H PRN PRN Reason: Nausea and Vomiting Last Admin: 05/23/24 02:05 Dose: 4 mg Documented By: ALEX Sodium Chloride (0.9 % Sodium Chloride Flush 3 Ml Syringe) [facility] Last Admin: 05/27/24 08:40 Dose: 3 ml Documented By: HEATHERMORP Tramadol HCl (Tramadol Hcl 50 Mg Tablet) 25 mg PO Q6H PRN PRN Reason: Pain, Severe (Pain Scale 7-10) Last Admin: 05/27/24 03:48 Dose: 25 mg Documented By: SAURABH Zolpidem Tartrate (Zolpidem Tartrate 5 Mg Tablet) 5 mg PO BEDTIME PRN PRN Reason: Insomnia Last Admin: 05/26/24 21:42 Dose: 5 mg Documented By: SAURABH Labs 05/25/24 05:40 05/25/24 05:40 Labs: Laboratory Results - last 24 hr 05/26/24 05/26/24 05/26/24 11:08 16:40 19:02 POC Glucose 152 H 131 H 156 H Microbiology Microbiology Results: Microbiology 05/25/24 08:40 Blood Culture - Preliminary Blood - Venous No growth after 24 hours. 05/25/24 08:30 Blood Culture - Preliminary Blood - Venous No growth after 24 hours. Assessment and Plan (1) Bacteremia due to Streptococcus: Status: Acute (2) Acute cellulitis: Status: Acute (3) Bilateral lower extremity edema: Status: Acute Plan This is a 38-year-old male with pertinent history of hypertension, uwz-ljgiizu-owrtavhpe diabetes mellitus, obesity, asthma not on home oxygen, lower extremity edema who presents to the emergency department for concerns of lower extremity infection Sepsis due to right lower extremity cellulitis complicated with Strep C bacteremia repeat blood cultures 05/25 s/p Zosyn and Vancomycin Started Ceftriaxone 05/25 ID consult>Check venous doppler to r/o dvt, check echo, cephalosporins for 14 days after 1st negative blood culture Wound care, plan for home VNA OT to get him pump therapy for lower extremities , it seems that will be a Co- Pay that he can not afford The patient has new PCP appointment 06/01, CW working on home services as he needs daily dressing and can not do it himself, his sister will be contacted to see if she can help newly diagnosed Qap-npalhca-mxfmsmwba diabetes mellitus with hyperglycemia no formal diagnosis of diabetes previously A1c of 7 lispro correctional scale Hypertension, uncontrolled add lisinopril given new diagnosis of diabetes continue Lasix follow renals/divalents adjust as indicated Iron deficiency anemia iron 325 mg/vitamin-C 500 mg daily Follow clinically as outpatient Lovenox Attending Dr. Llamas Full code Requires ongoing hospitalization to treat cellulitis with IV antibiotics pending ID evaluation and repeated blood cultures Quality Stroke Does the patient have a stroke diagnosis?: No VTE Prior VTE?: No VTE Risk Level:: Medical - moderate - high VTE Device Contraindication: Treatment Not Indicated VTE Drug Contraindication: N/A - Med Ordered
[2024-05-27 11:12] LABS: Glucose, Whole Blood 173 mg/dL (60-115)
[2024-05-27 11:15] LABS: Glucose, Whole Blood 134 mg/dL (60-115)
[2024-05-27] MEDS: LORazepam 2 MG/ML VIAL 1 MG IVPUSH (11:22)
[2024-05-27] MEDS: Insulin Lispro 100 UNIT/ML 3 ML VIAL SUBCUT ×2 (11:23→20:25)
[2024-05-27 15:19] VITALS: BP 178/88; PULSE 101; RESP 20; TEMP 36.8; O2SAT 98
[2024-05-27] MEDS: cefTRIAXone sodium 2 GM VIAL IVPUSH (16:01)
[2024-05-27] MEDS: amLODIPine Besylate 2.5 MG TABLET PO (16:01)
[2024-05-27 16:04] LABS: Glucose, Whole Blood 143 mg/dL (60-115)
[2024-05-27] MEDS: Morphine Sulfate 2 MG/ML CARTRIDGE 1 MG IVPUSH ×2 (18:58→23:29)
[2024-05-27 19:00] VITALS: BP 176/72; PULSE 100; RESP 20; TEMP 37.1; O2SAT 96
[2024-05-27] MEDS: Labetalol HCL 100 MG/20 ML VIAL 10 MG IVPUSH (19:34)
[2024-05-27 20:16] LABS: Glucose, Whole Blood 214 mg/dL (60-115)
[2024-05-27 20:33] VITALS: BP 172/88
--- NOTE | 2024-05-27 23:08 | PC.NURSE ---
Pt's BP at 1899 was 176/72 manually. [place] text to Dr. Montgomery, 10 mg IV labetalol ordered and cardiac monitoring. gambling monitor placed on pt, IV labetalol given at 1933. Pt's BP at 2032 manually was 172/88, Dr. Montgomery aware.
[2024-05-27] MEDS: Zolpidem Tartrate 5 MG TABLET PO (23:29)
[2024-05-27] MEDS: Melatonin 3 MG TABLET 6 MG PO (23:29)
[2024-05-28 03:01] VITALS: BP 176/88; PULSE 96; RESP 18; TEMP 36.6; O2SAT 96
[2024-05-28] MEDS: Morphine Sulfate 2 MG/ML CARTRIDGE 1 MG IVPUSH ×2 (05:55→17:35)
[2024-05-28 07:18] VITALS: BP 170/90; PULSE 91; RESP 18; TEMP 36.8; O2SAT 96
[2024-05-28 07:38] LABS: Glucose, Whole Blood 150 mg/dL (60-115)
[2024-05-28 08:14] LABS: Hematocrit 31.9 % (42.0-52.0); Hemoglobin 9.6 g/dl (14.0-18.0); Mean Corpuscular HGB Conc 30.1 g/dl (31.0-36.0); Mean Corpuscular Hemoglobin 23.9 pg (27.0-33.0); Mean Corpuscular Volume 79.4 fL (80.0-98.0); Mean Platelet Volume 10.3 fL (9.4-12.4); Platelet Count 311 X10*3/uL (160-400); Red Blood Count 4.02 X10*6/uL (4.60-5.80); Red Cell Distribution Width 17.2 % (11.0-16.0)
[2024-05-28] MEDS: amLODIPine Besylate 2.5 MG TABLET PO (08:20)
[2024-05-28] MEDS: Furosemide 40 MG TABLET PO (08:21)
[2024-05-28] MEDS: Enoxaparin Sodium 40 MG/0.4 ML SYRINGE SUBCUT ×2 (08:21→20:23)
[2024-05-28] MEDS: traMADoL HCL 50 MG TABLET 25 MG PO ×2 (08:25→21:23)
[2024-05-28] MEDS: 0.9 % Sodium Chloride Flush 3 ML SYRINGE IVFLUSH ×3 (08:27→20:29)
[2024-05-28 08:32] LABS: Anion Gap 11 (12-20); Blood Urea Nitrogen 7 mg/dL (9-16); Carbon Dioxide 30 mmol/L (22-29); Chloride 100 mmol/L (96-108); Creatinine Clr Calc Pharmacy 217.8; Estimated Glomerular Filt Rate > 60; Glucose Random 167 mg/dL (60-115); Potassium 3.7 mmol/L (3.3-5.1); Sodium 137 mmol/L (135-145)
[2024-05-28] MEDS: LORazepam 2 MG/ML VIAL 0.5 MG IVPUSH (09:46)
[2024-05-28] MEDS: HYDROmorphone HCl 1 MG/ML SYRINGE 0.75 MG IVPUSH (09:46)
[2024-05-28 11:39] LABS: Glucose, Whole Blood 184 mg/dL (60-115)
[2024-05-28] MEDS: Insulin Lispro 100 UNIT/ML 3 ML VIAL SUBCUT ×2 (11:50→20:25)
--- NOTE | 2024-05-28 13:56 | P.PNIM_ITS ---
Subjective Subjective Date of Service: 05/28/24 Interval History: Seen and evaluated this morning his wounds still oozing and requires multiple dressing chages Blood cx grew Strep C , repeat pending No other overnight events Review of Systems Review of Systems: Yes all other systems are reviewed and are negative Physical Exam 2 Vital Signs: Vital Signs: Last Vital Signs Temp 98.3 F 05/28/24 07:18 Pulse 91 05/28/24 07:18 Resp 18 05/28/24 07:18 BP 170/90 H 05/28/24 07:18 Pulse Ox 96 05/28/24 07:18 O2 Del Method Room Air 05/28/24 07:18 BMI result Body Mass Index 61.6 Appearing in no acute distress lung sounds are clear to auscultation heart regular rate rhythm, clear S1, S2 positive bowel sounds, abdomen is soft, nontender neuro patient is alert x3, no focal deficits Objective Data Active Medications Acetaminophen (Acetaminophen 325 Mg Tablet) 650 mg PO Q6H PRN PRN Reason: Pain, Mild (Pain Scale 1-3), fever or headache Last Admin: 05/27/24 03:49 Dose: 650 mg Documented By: SAURABH Albuterol Sulfate (Albuterol Sulfate 90 Mcg 8 Gm Inhaler) 2 puff INHALE QID PRN PRN Reason: shortness of breath or wheezing Amlodipine Besylate (Amlodipine Besylate 5 Mg Tablet) 5 mg PO DAILY [facility]; Protocol Calcium Carbonate (Calcium Carbonate 750 Mg Tab.Chew) 750 mg PO Q4H PRN PRN Reason: Heartburn Ceftriaxone Sodium (Ceftriaxone Sodium 2 Gm Vial) 2 gm IVPUSH Q24H [facility] Last Admin: 05/27/24 16:01 Dose: 2 gm Documented By: PODMORUDY Enoxaparin Sodium (Enoxaparin Sodium 40 Mg/0.4 Ml Syringe) 40 mg SUBCUT BID [facility] Last Admin: 05/28/24 08:21 Dose: 40 mg Documented By: LEONARD Furosemide (Furosemide 40 Mg Tablet) 40 mg PO DAILY [facility]; Protocol Last Admin: 05/28/24 08:21 Dose: 40 mg Documented By: ELONARD Glucose (Glucose Gel 15 Gm Gel..Gram.) 15 gm PO Q15M PRN; Protocol PRN Reason: per Hypoglycemia Standing Ord. Dextrose (D10) 250 mls @ 750 mls/hr IV Q15M PRN; Protocol PRN Reason: per Hypoglycemia Standing Ord. Insulin Human Lispro (Insulin Lispro 100 Unit/Ml 3 Ml Vial) 0 [facility]; Protocol Last Admin: 05/28/24 11:50 Dose: 2 unit Documented By: LEONARD Magnesium Hydroxide (Milk Of Magnesia 30 Ml Oral.Susp) 30 ml PO DAILY PRN PRN Reason: Constipation Melatonin (Melatonin 3 Mg Tablet) 6 mg PO BEDTIME PRN PRN Reason: Insomnia Last Admin: 05/27/24 23:29 Dose: 6 mg Documented By: ANETA Ondansetron HCl (Ondansetron Hcl 4 Mg/2 Ml Vial) 4 mg IVPUSH Q8H PRN PRN Reason: Nausea and Vomiting Last Admin: 05/23/24 02:05 Dose: 4 mg Documented By: ALEX Sodium Chloride (0.9 % Sodium Chloride Flush 3 Ml Syringe) [facility] Last Admin: 05/28/24 08:27 Dose: 3 ml Documented By: LEONARD Tramadol HCl (Tramadol Hcl 50 Mg Tablet) 25 mg PO Q6H PRN PRN Reason: Pain, Severe (Pain Scale 7-10) Last Admin: 05/28/24 08:25 Dose: 25 mg Documented By: LEONARD Zolpidem Tartrate (Zolpidem Tartrate 5 Mg Tablet) 5 mg PO BEDTIME PRN PRN Reason: Insomnia Last Admin: 05/27/24 23:29 Dose: 5 mg Documented By: ANETA Labs 05/28/24 07:45 05/28/24 07:45 Labs: Laboratory Results - last 24 hr 05/27/24 05/27/24 05/28/24 16:01 20:13 07:13 MCV MCH MCHC RDW Plt Count MPV Absolute Nucleated RBC Nucleated RBC % (auto) Anion Gap Estim Creat Clear Calc Estimated GFR POC Glucose 143 H 214 H 150 H Random Glucose Calcium 05/28/24 05/28/24 07:45 11:25 MCV 79.4 L MCH 23.9 L MCHC 30.1 L RDW 17.2 H Plt Count 311 D MPV 10.3 Absolute Nucleated RBC 0.000 Nucleated RBC % (auto) 0.0 Anion Gap 11 L Estim Creat Clear Calc 217.8 Estimated GFR > 60 POC Glucose 184 H Random Glucose 167 H Calcium 9.0 Microbiology Microbiology Results: Microbiology 05/25/24 08:40 Blood Culture - Preliminary Blood - Venous No growth after 48 hours. 05/25/24 08:30 Blood Culture - Preliminary Blood - Venous No growth after 48 hours. Assessment and Plan (1) Bacteremia due to Streptococcus: Status: Acute (2) Acute cellulitis: Status: Acute (3) Bilateral lower extremity edema: Status: Acute Plan This is a 38-year-old male with pertinent history of hypertension, jat-ckhaloe-xwixbfnte diabetes mellitus, obesity, asthma not on home oxygen, lower extremity edema who presents to the emergency department for concerns of lower extremity infection Sepsis due to right lower extremity cellulitis complicated with Strep C bacteremia repeat blood cultures 05/25 s/p Zosyn and Vancomycin Started Ceftriaxone 05/25 ID consult>Check venous doppler to r/o dvt, check echo, cephalosporins for 14 days after 1st negative blood culture Wound care, plan for home VNA OT to get him pump therapy for lower extremities , it seems that will be a Co- Pay that he can not afford The patient has new PCP appointment 06/01, CW working on home services as he needs daily dressing and can not do it himself, his sister will be contacted to see if she can help newly diagnosed Frv-ypnlzgh-rcotcgdon diabetes mellitus with hyperglycemia no formal diagnosis of diabetes previously A1c of 7 lispro correctional scale Hypertension, uncontrolled add lisinopril given new diagnosis of diabetes continue Lasix follow renals/divalents adjust as indicated Iron deficiency anemia iron 325 mg/vitamin-C 500 mg daily Follow clinically as outpatient Lovenox Attending Dr. Llamas Full code Requires ongoing hospitalization to treat cellulitis with IV antibiotics pending ID evaluation and repeated blood cultures Quality Stroke Does the patient have a stroke diagnosis?: No VTE Prior VTE?: No VTE Risk Level:: Medical - moderate - high VTE Device Contraindication: Treatment Not Indicated VTE Drug Contraindication: N/A - Med Ordered
[2024-05-28 16:00] VITALS: BP 172/80; PULSE 99; RESP 18; TEMP 36.6; O2SAT 96
[2024-05-28] MEDS: cefTRIAXone sodium 2 GM VIAL IVPUSH (16:05)
[2024-05-28 16:17] LABS: Glucose, Whole Blood 144 mg/dL (60-115)
[2024-05-28 19:38] LABS: Glucose, Whole Blood 169 mg/dL (60-115)
[2024-05-28 19:47] VITALS: BP 168/72; PULSE 102; RESP 18; TEMP 36.2; O2SAT 96
[2024-05-28] MEDS: Acetaminophen 325 MG TABLET 650 MG PO (21:23)
[2024-05-28] MEDS: diphenhydrAMINE HCL 50 MG/ML VIAL 25 MG IVPUSH (21:42)
[2024-05-29] MEDS: traMADoL HCL 50 MG TABLET 25 MG PO ×2 (03:50→09:57)
[2024-05-29] MEDS: Acetaminophen 325 MG TABLET 650 MG PO ×2 (03:51→09:57)
[2024-05-29 04:00] VITALS: BP 170/68; PULSE 97; RESP 18; TEMP 36.3; O2SAT 94
--- NOTE | 2024-05-29 07:27 | PM.DS ---
DS: Providers Provider Date of Service: 05/29/24 Date of admission: 05/22/24 19:01 Primary care physician: Unknown Physician Consults: 05/23/24 01:54 Consult to Wound Care Routine Reason for consultation: cellulitis lina lower legs with blisters Has provider been notified: Yes 05/26/24 09:03 Consult to Infectious Diseases Routine Consulting Provider: [facility] Reason for consultation: Grp C Strep Bacteremia DS: Diagnosis Discharge Diagnosis (1) Bacteremia due to Streptococcus: Status: Acute (2) Acute cellulitis: Status: Acute (3) Bilateral lower extremity edema: Status: Acute DS: Summary Hospital Course Hospital Course: HP as per admitting provider. This is a 38-year-old male with pertinent history of hypertension, jtl-vwxcyyr-ojtxcjoen diabetes mellitus, obesity, asthma not on home oxygen, lower extremity edema who presents to the emergency department for concerns of lower extremity infection. Patient states his symptoms started about 10-14 days prior to presentation. He has noticed swelling, erythema and pain of his right lower extremity. The redness and warmth have been progressive and worsened over the last 1 week. Also has associated fevers and chills. Does not remember if he has had cellulitis in the past. His right lower extremity is with purulent drainage. Patient states he takes a fluid pill for lower extremity edema but he has never been told that he has hypertension nor has he been prescribed antihypertensives. No chest pain, palpitations, shortness of breath, abdominal pain, changes in urinary or bowel habits. In the emergency department, patient was found be septic and initiated on empiric IV antibiotics. Sepsis due to right lower extremity cellulitis complicated with Strep C bacteremia, repeat blood cultures negative. s/p Zosyn and Vancomycin. Started Ceftriaxone 05/25. ID consult>Check venous doppler to r/o dvt (negative) ceftin for 14 days Wound care, plan for home VNA: Recommendations: 1. Turn and Reposition every 2 hours and as needed for patient comfort.? Use pillows or wedges to support off loading positions. 2. Off Load all bony prominences with use of pillows and heel boots if needed.? Apply Preventative foams where needed. ? 3. Monitor for incontinence and moisture control, use barrier creams when needed for prevention and treatment. 4. Provide adequate and supplemental nutrition.? 5. Bariatric bed ordered. 6. When applicable maintain blood glucose levels per Providers order. 7. Bilateral Lower Legs - Elevate lower legs. Cleanse with Adia spray, pay dry. Apply Durafiber to open wound beds, cover with super absorbency pad followed by elastic retention netting size 9. When absorbency pad is saturated replace absorptive pad Durafiber can be changed every other day. Change every other day and PRN. Patient should follow up outpt with OT for Lymphedema and compression therapy. Sister will be helping with dressings new PCP appointment 06/01. newly diagnosed Xvc-fmvoedn-qbbtayvwz diabetes mellitus with hyperglycemia . no formal diagnosis of diabetes previously. A1c of 7. treated with lispro correctional scale while inpatient. Start Metformin 500mg daily Hypertension, uncontrolled during admission. Lisinopril 5 mg daily added, continue lasix Iron deficiency anemia. iron 325 mg/vitamin-C 500 mg daily Time Attestation Discharge Coordination Time (in mins): 45 Quality: Safe Use of Opioids Does Pt have an Active Cancer Diagnosis on the Problem List?: No Quality: Stroke Does the patient have a stroke diagnosis?: No Physical Exam Vital Signs: Vital Signs: Last Vital Signs Temp 97.3 F 05/29/24 04:00 Pulse 97 05/29/24 04:00 Resp 18 05/29/24 04:00 BP 170/68 H 05/29/24 04:00 Pulse Ox 94 05/29/24 04:00 O2 Del Method Room Air 05/29/24 04:00 BMI result Body Mass Index 61.6 Appearing in no acute distress head is normocephalic atraumatic eyes pupils are PERRLA sclera is anicteric mouth throat mucous membranes are intact and moist neck is supple no lymphadenopathy, no JVD noted lung sounds are clear to auscultation heart regular rate rhythm, clear S1, S2 positive bowel sounds, abdomen is soft, nontender neuro patient is alert x3, no focal deficits DS: Data Data Completed and Pending Labs on day of discharge: Laboratory Results - last 24 hr 05/28/24 05/28/24 05/28/24 07:13 07:45 11:25 WBC 14.0 H RBC 4.02 L Hgb 9.6 L Hct 31.9 L MCV 79.4 L MCH 23.9 L MCHC 30.1 L RDW 17.2 H Plt Count 311 D MPV 10.3 Absolute Nucleated RBC 0.000 Nucleated RBC % (auto) 0.0 Sodium 137 Potassium 3.7 Chloride 100 Carbon Dioxide 30 H Anion Gap 11 L BUN 7 L Creatinine 0.87 Estim Creat Clear Calc 217.8 Estimated GFR > 60 POC Glucose 150 H 184 H Random Glucose 167 H Calcium 9.0 05/28/24 05/28/24 16:10 19:34 WBC RBC Hgb Hct MCV MCH MCHC RDW Plt Count MPV Absolute Nucleated RBC Nucleated RBC % (auto) Sodium Potassium Chloride Carbon Dioxide Anion Gap BUN Creatinine Estim Creat Clear Calc Estimated GFR POC Glucose 144 H 169 H Random Glucose Calcium Preliminary micro results at discharge 05/25/24 08:40 Blood Culture - Preliminary Blood - Venous No growth after 48 hours. 05/25/24 08:30 Blood Culture - Preliminary Blood - Venous No growth after 48 hours. Discharge Plan Discharge Anticipated Discharge Date/Time: 05/29/24 07:11 Patient Disposition: Home Health Service Discharge Diagnosis: Lower extremity cellulitis Lower extremity edema Referrals: Melida García PA-C [Physician Shipping & Receiving Lead] - 06/01/24 11:00 am Discharge Medications: New amlodipine 5 mg Tablet 5 mg PO DAILY Qty: 30 0RF Protocol: Hold for SBP< HOLD for SBP < : 90 cefuroxime axetil 500 mg tablet 500 mg PO BID Qty: 28 0RF Continued albuterol sulfate 90 mcg/actuation HFA aerosol inhaler 2 puff inhalation QID PRN (Reason: shortness of breath or wheezing) Qty: 6.7 2RF furosemide [Lasix] 40 mg tablet 40 mg PO DAILY Qty: 30 2RF acetaminophen 500 mg Tablet 1,000 mg PO Q8H PRN (Reason: Headache) naproxen sodium [Aleve] 220 mg Tablet 220 mg PO Q8H PRN (Reason: Headache) Discharge Orders: Discharge Order (Routine); Ordered 05/29/24 Ordered By: Natalie Moran Diet: Advance to usual diet Activity on Discharge: As tolerated Stand Alone Forms: Patient Portal Discharge page Print Language: Sami Activity Restrictions/Additional Instructions: Topical Wound Care Recommendations: Bilateral Lower Legs - Elevate lower legs. Cleanse with Adia spray, pay dry. Apply Durafiber to open wound beds, cover with super absorbency pad followed by elastic retention netting size 9. When absorbency pad is saturated replace absorptive pad Durafiber can be changed every other day. Change every other day and PRN. Patient should follow up outpt with OT for Lymphedema and compression therapy. [facility] [address] [address] . Recommend patient to consider Edema Wear outpt as not available inpatient. These can be obtained from the following website. [email or web address]. Care Plan Goals: You were started on amlodipine 5mg for high blood pressure Take antibiotics for cellulitis Health Concerns: Lower extremity cellulitis Lower extremity edema Plan of Treatment: Follow up with primary care provider at your next scheduled appointment take all medications as prescribed Assessment: see discharge summary
[2024-05-29 07:28] VITALS: BP 147/70; PULSE 98; RESP 20; TEMP 36.4; O2SAT 96
[2024-05-29 07:28] LABS: Glucose, Whole Blood 161 mg/dL (60-115)
[2024-05-29] MEDS: amLODIPine Besylate 5 MG TABLET PO (07:48)
[2024-05-29] MEDS: Enoxaparin Sodium 40 MG/0.4 ML SYRINGE SUBCUT (07:48)
[2024-05-29] MEDS: Furosemide 40 MG TABLET PO (07:48)
[2024-05-29] MEDS: 0.9 % Sodium Chloride Flush 3 ML SYRINGE IVFLUSH (07:49)
[2024-05-29] MEDS: Insulin Lispro 100 UNIT/ML 3 ML VIAL SUBCUT (07:49)
[2024-05-29 08:08] LABS: Anion Gap 10 (12-20); Blood Urea Nitrogen 10 mg/dL (9-16); Calcium 8.7 mg/dL (8.4-10.2); Carbon Dioxide 30 mmol/L (22-29); Chloride 101 mmol/L (96-108); Creatinine Clr Calc Pharmacy 222.9; Estimated Glomerular Filt Rate > 60; Glucose Random 173 mg/dL (60-115); Potassium 4.1 mmol/L (3.3-5.1); Sodium 137 mmol/L (135-145)
--- NOTE | 2024-05-29 09:34 | MHC.CM.PN ---
pt bunny today transportaion arranged for 12 citrus picker by [facility] van pts sister to assist with dressing changes until he ia ble to get a vna after his pcp appt
--- NOTE | 2024-05-29 09:37 | MHC.CM.PN ---
pcp appt is jun 01 at 11
--- NOTE | 2024-05-29 10:35 | MHC.CM.PN ---
booked pts transportaion to md appt 06/01 pick is 9:15 pt aware
--- NOTE | 2024-05-29 10:38 | MHC.CM.PN ---
pt going home self care until his appt with his new pcp 06/01 at 11 his sister will be caring for his wound until his appt pt will need to ask md for a new referral to ns
[2024-05-29 11:33] LABS: Glucose, Whole Blood 204 mg/dL (60-115)
== END 2024-05-29 11:38 | disposition home health service (06) | DRG 720 ==
LOC: HO.ED 19:56 → HO.EDOVER 20:52 → HO.S3 22:01
PROVIDERS: Hospitalist; Physician Assistant Medical; Student in an Organized Health Care Education/Training Program; Admitting Provider Student in an Organized Health Care Education/Training Program; Emergency Provider Emergency Medicine; Visit Provider Nurse Practitioner Acute Care
DX: A41.9 Sepsis, unspecified organism (principal); E87.21 Acute metabolic acidosis; Z68.44 Body mass index [BMI] 60.0-69.9, adult; L03.115 Cellulitis of right lower limb; E11.65 Type 2 diabetes mellitus with hyperglycemia; D50.9 Iron deficiency anemia, unspecified; I10 Essential (primary) hypertension; R60.0 Localized edema; B95.4 Other streptococcus as the cause of diseases classified elsewhere; J45.909 Unspecified asthma, uncomplicated; E66.01 Morbid (severe) obesity due to excess calories; Z79.51 Long term (current) use of inhaled steroids; Z79.899 Other long term (current) drug therapy
CPT/HCPCS: 36415; 71045; 80048; 80053; 80202; 82947; 83036; 83540; 83605; 83735; 85025; 85027; 85652; 86140; 87040; 87077; 87147; 87186; 87205; 93971; 94640; 97535; 99285; J0696; J1171; J1200; J1650; J1920; J2060; J2270; J2405; J2543; J3370; J3371; P9047; Q9957

== ENCOUNTER → 2024-05-22 14:45 | Outpatient (BNV) | payer MEDICAID, SELFPAY | PROVIDERS: Emergency Provider Emergency Medicine; Visit Provider Student in an Organized Health Care Education/Training Program | DX: A41.9 Sepsis, unspecified organism (principal); L03.90 Cellulitis, unspecified | CPT/HCPCS: 99223; 99232; 99233; 99239 ==

== ENCOUNTER → 2024-05-22 19:01 | Outpatient (BNV) | payer MEDICAID, SELFPAY | PROVIDERS: Admitting Provider Student in an Organized Health Care Education/Training Program; Emergency Provider Emergency Medicine; Visit Provider Internal Medicine | DX: R78.81 Bacteremia (principal); A41.9 Sepsis, unspecified organism; B95.5 Unspecified streptococcus as the cause of diseases classified elsewhere | CPT/HCPCS: 99222 ==

== ENCOUNTER 2024-06-01 10:35 | Outpatient (AMB) | payer OTHER, SELFPAY ==
--- NOTE | 2024-06-01 10:36 | A.OFFPC_ITS ---
Vital Signs 06/01/24 10:37 Height 6 ft 2 in Weight 392 lb 0.6 oz BMI 50.3 BP 142/86 H Blood Pressure Location Lt brachial Position Sitting Pulse 100 Pulse Source Pulse Oximeter Pulse Oximetry (%) 97 Oxygen Delivery Method Room Air Intake Visit Reasons: BACO pt needs to establish care Allergies clindamycin [CLINDAMYCIN] Allergy (Unknown, Verified 06/01/24 11:04) HIVES doxycycline [DOXYCYCLINE] Allergy (Unknown, Verified 06/01/24 11:04) HIVES Latex, Natural Rubber Adverse Reaction (Verified 06/01/24 11:04) Itching Medication List - Last Reconciled 06/01/24 by Melida García PA-C acetaminophen 1,000 mg PO Q8H PRN albuterol sulfate 90 mcg/actuation 2 puffs inhalation QID PRN amlodipine 5 mg See Protocol PO DAILY cefuroxime axetil 500 mg PO BID furosemide (Lasix) 40 mg PO DAILY naproxen sodium (Aleve) 220 mg PO Q8H PRN Tobacco use date assessed: 06/01/24 Dental Screening Dental Screen Date: 06/01/24 Did you have a dental visit in the last 12 months?: No Did you have a dental problem in the last 6 months where you did not have access to dental care?: No HPI BACO pt needs to establish care HPI Details 38-year-old male with past medical histo ry of hypertension, [id number]-[id number] diabetes mellitus, obesity, asthma, lower extremity edema coming to the office for the 1st time. In review of the notes, patient was seen in [facility] 05/22/2024 for lower extremity edema with redness and warmth found to have sepsis due to right lower extremity cellulitis. Patient was started on metformin 500 mg daily for new onset diabetes and started on amlodipine 5 mg for uncontrolled hypertension, started on oral iron supplementation for iron deficiency anemia. VNA services were set up for in-home wound care and discussed wound care and dressing changes with patient. Patient was discharged home 05/29/2024. Has not had VNA services in the home yet but has been doing dressing changes by himself and his sister. His pain and redness and open lesions have been improving. He does still continue to have pain in bilateral lower extremities primarily at night. He has difficulty sleeping at night even before hospital admission. He has not yet started taking his Metformin as the hospital did not provide this for him. He uses his inhaler multiple times per week and denies nighttime awakenings. [facility] Medical History Obesity Asthma Family History (Updated 06/01/24 @ 11:15 by Melida García PA-C) Maternal Grandfather Skin cancer Testicular cancer Social History Household Members: Family Housing: House Do you presently have visiting nurse or other home services: No Patient Tobacco Use Status: Never used Tobacco Substance Use Type: Marijuana service: No Current occupational status: unemployed Cognitive needs: No Hearing needs: No Vision needs: No Questionnaire PHQ-9 Over the last 2 weeks, how often have you been bothered by any of the following problems? 1. Little interest or pleasure in doing things: several days 4. Feeling tired or having little energy: several days 5. Poor appetite or overeating: more than half the days 6. Feeling bad about yourself - or that you are a failure or have let yourself or your family down: several days 7. Trouble concentrating on things, such as reading the newspaper or watching television: not at all 8. Moving or speaking so slowly that other people could have noticed. Or the opposite - being so fidgety or restless that you have been moving around a lot more than usual: not at all 9. Thoughts that you would be better off or of hurting yourself in some way: not at all Depression Screening Interpretation: Negative Depression Screening Done: Yes 58716 - PHQ-9 Billing: Yes Source: Developed by Drs. Kirill Hernandez, Carmen Glass, Bladimir Cesar and colleagues, with an educational carmen from [employer]. Thrive Questionnaire Date Thrive assessed: 05/23/24 I am a: Patient What is your living situation today?: I have a steady place to live Within the past 12 months, did the food you bought not last and you didn't have the money to get more?: Never true Within the past 12 months, did you worry whether your food would run out before you got money to buy more?: Never true Do you have trouble paying for medicines?: Yes Do you have trouble getting transportation to medical appointments?: No Do you have trouble paying your heating and electricity bill?: No Do you have trouble taking care of your child, family member or friend?: No Do you have trouble with day-to-day activities such as bathing, preparing meals, shopping, managing finances, etc.?: No Are you currently unemployed and looking for a job?: Yes Are you interested in more education?: No Please select the resources that you would like help with: Paying for medicine and Transportation Currently or been in a relationship where the following occur: No concerns reported THRIVE Score: 0 AUDIT C Alcohol Use Questionnaire (AUDIT-C) 1. How often do you have a drink containing alcohol?: Never 3. How often do you have six or more drinks on one occasion?: Never Total Score: 0 HARINDER-7 AMB Questionnaire HARINDER-7 Date HARINDER - 7 assessed: 06/01/24 Feeling nervous, anxious, or on edge: 1 = Several days Not being able to stop or control worryin = Not at all Worrying too much about different things: 0 = Not at all Trouble relaxin = Several days Being so restless that it is hard to sit still: 0 = Not at all Becoming easily annoyed or irritable: 0 = Not at all Feeling afraid as if something awful might happen: 0 = Not at all Total HARINDER-7 score (0-4 normal; 5-9 mild; 10-14 moderate; 15-21 severe): 2 Source: Developed by Drs. Kirill Hernandez, Carmen Glass, Bladimir Cesar and colleagues, with an educational carmen from [employer]. HARINDER-7 Assessment Billing HARINDER-7 Assessment Tool: HARINDER-7 Assessment 99846 Review of Systems Const Denies body aches, Denies fatigue, Denies fever(s), Denies frequent falls, Denies headache(s) and Denies weakness Eyes Reports no additional complaints and Denies change in vision ENT Denies dysphagia, Denies dizziness, Denies facial pain, Denies headache(s), Denies nasal congestion and Denies odynophagia Card Denies chest pain, Denies syncope, Denies irregular heart rhythm, Reports leg edema, Denies lightheadedness and Reports dyspnea (Occasional) Resp Denies cough and Reports dyspnea (Occasional) GI Denies constipation, Denies dysphagia, Denies dyspepsia, Denies diarrhea, Denies nausea, Denies odynophagia and Denies vomiting Denies dysuria, Denies urinary frequency, Denies urinary hesitancy and Denies urinary urgency Musc Details: bilateral leg pain Denies back pain and Denies myalgias Skin/Breast Reports as per HPI Neuro Denies dizziness, Denies syncope, Denies frequent falls, Denies headache(s) and Denies weakness Psych Reports no additional complaints Endo Denies fatigue Physical exam (Primary Care) Vital Signs: Last Vital Signs Pulse 100 06/01/24 10:37 BP 142/86 H 06/01/24 10:37 Pulse Ox 97 06/01/24 10:37 Oxygen Delivery Method Room Air 06/01/24 10:37 BMI result Body Mass Index 50.3 Tobacco/Smoking Status: Tobacco use Status Tobacco use date assessed 06/01/24 06/01/24 10:45 Patient Tobacco Use Status Never used Tobacco 06/01/24 10:45 Depression Screening Interpretation: Negative Thrive Assessment: Date of Thrive Assessment Date Thrive assessed 05/23/24 06/01/24 10:45 Currently or been in a relationship where the following occur: No concerns reported Const General: cooperative, healthy appearing, comfortable and no acute distress Orientation/consciousness: patient oriented x3 HENMT Head: Yes normocephalic Ears: hearing grossly normal bilaterally General nose exam: Normal external nose present Eyes General: appearance normal, both eyes and all related structures Conjunctivae: conjunctivae normal Neck Neck: Yes full ROM and Yes no lymphadenopathy Resp Effort & Inspection: normal respiratory effort Auscultation: clear to auscultation bilaterally, no crackles, no rales, no rhonchi and no wheezes Cardio Rate: regular rate Rhythm: regular rhythm Skin Other: Multiple lesions on bilateral lower extremities with routine healing no areas of open skin. Continues to have erythematous and flaking skin which has improved since hospital Neuro General: patient oriented x3 Gait exam (Neuro): Normal gait present Extrem General: Yes normal to inspection, Yes full ROM and No edema Psych Affect: normal affect Attitude: cooperative Insight: Good insight present (Psych) Judgement: Good judgement present (Psych) Coding Level of Care Code New Pt Level 4 (59358) Diagnoses Bilateral edema of lower extremity R60.0 Asthma J45.909 Hypertension I10 Hypertension type: essential hypertension Diabetes E11.628 Diabetes mellitus complication detail: with other skin complication Diabetes mellitus complication status: with skin complications Diabetes mellitus detention insulin use: without termite exterminator helper use Diabetes mellitus type: type 2 Acute cellulitis L03.90 Insomnia G47.00 Additional Codes HARINDER-7 Assessment Billing - HARINDER-7 Assessment Tool: HARINDER-7 Assessment [id number] ([id number]) Assessment & Plan Assessment & Plan (1) Bilateral edema of lower extremity: Code(s): R60.0 - Localized edema Category: Medical Plan: Patient has been without Lasix because he lost his prescription. Resent Rx today. Advised patient to keep legs elevated when possible and ambulate as tolerated. Keep legs well hydrated with lotion to avoid cracking and further infection. (2) Asthma: Code(s): J45.909 - Unspecified asthma, uncomplicated Category: Medical Plan: Patient using albuterol inhaler multiple times per week asthma not well managed. We will add inhaled corticosteroid to medication regimen.? Avoid triggers such as allergies. Follow up in 6 weeks. (3) Hypertension: Code(s): I10 - Essential (primary) hypertension Category: Medical Qualifiers: Hypertension type: essential hypertension Qualified Code(s): I10 - E ssential (primary) hypertension Plan: Continue on current blood pressure medication. Avoid salt intake and encourage healthy diet and regular exercise. Blood pressure mildly elevated did just restart amlodipine last week. We will follow up in 6 weeks for repeat blood pressure check. (4) Diabetes: Code(s): E11.9 - Type 2 diabetes mellitus without complications Category: Medical Qualifiers: Diabetes mellitus complication detail: with other skin complication Diabetes mellitus complication status: with skin complications Diabetes mellitus termite exterminator helper insulin use: without termite exterminator helper use Diabetes mellitus type: type 2 Qualified Code(s): E11.628 - Type 2 diabetes mellitus with other skin complications Plan: Patient was diagnosed with diabetes while in the hospital with A1c of 7%. Decrease the amount of carbohydrates such as pasta, bread, rice, and potatoes and limit the amount of sweets. Although fruits are generally healthy they should be eaten in moderation as they are still high in sugar. Hemoglobin A1c goal of less than 7%. We will start on metformin 500 mg daily and follow up at next visit. (5) Acute cellulitis: Code(s): L03.90 - Cellulitis, unspecified Category: Medical Plan: Patient continues to have sores on bilateral lower extremities with routine healing. No areas of open skin at this time. Does still have redness and swelling. Advised patient to continue with regular dressing changes and will have VNA services hopefully this week or next. Advised patient to follow up if he does not receive these services. Reviewed red flag symptoms of cellulitis and when to present to ER or re-evaluation. Continue on antibiotic. (6) Insomnia: Code(s): G47.00 - Insomnia, unspecified Category: Medical Plan: We will trial hydroxyzine as needed and follow up at next visit. Plan This note was constructed using voice recognition software. While every effort has been made to ensure accuracy and surface plate finisher, still areas may have been included sometimes these areas may affect the content or meeting of the given symptoms. Total time spent caring for the patient today was 30 minutes. This includes time spent before the visit reviewing the chart, time spent during the visit, and time spent after the visit and documentation. Orders: Orders Hemoglobin A1c Today Z00.00 - Encounter for general adult medical examination without abnormal findings Lipid Panel Today Z00.00 - Encounter for general adult medical examination without abnormal findings Vitamin D 25-OH (D2 and D3) Today Z00.00 - Encounter for general adult medical examination without abnormal findings Vitamin B12 and Folate Today Z00.00 - Encounter for general adult medical examination without abnormal findings TSH reflex Free T4 Today Z00.00 - Encounter for general adult medical examination without abnormal findings Medications: New hydroxyzine HCl 25 mg PO BEDTIME PRN 20 tabs 0RF insomnia metformin 500 mg PO DAILY 90 tabs 2RF E11.628 - Type 2 diabetes mellitus with other skin complications beclomethasone dipropionate 40 mcg/actuation (Qvar RediHaler) 1 inh inhalation BID 10.6 grams 0RF Refilled albuterol sulfate 90 mcg/actuation 2 puffs inhalation QID PRN 6.7 grams 2RF shortness of breath or wheezing amlodipine 5 mg See Protocol PO DAILY 90 tabs 2RF furosemide (Lasix) 40 mg PO DAILY 30 tabs 2RF
[2024-06-01 10:37] VITALS: BP 142/86; PULSE 100; O2SAT 97; BMI 50.3
== END 2024-06-01 11:40 | disposition home or self-care (01) ==
LOC: HO.HMCH 10:35
DX: R60.0 Localized edema (principal); J45.909 Unspecified asthma, uncomplicated; I10 Essential (primary) hypertension; E11.628 Type 2 diabetes mellitus with other skin complications; L03.90 Cellulitis, unspecified; G47.00 Insomnia, unspecified

== ENCOUNTER → 2024-06-01 10:35 | Outpatient (BNVA) | payer OTHER, MEDICAID, SELFPAY | DX: R60.0 Localized edema (principal); J45.909 Unspecified asthma, uncomplicated; I10 Essential (primary) hypertension; E11.628 Type 2 diabetes mellitus with other skin complications; L03.90 Cellulitis, unspecified; G47.00 Insomnia, unspecified | CPT/HCPCS: 96127; 99202 ==

== ENCOUNTER 2024-08-14 11:34 | Outpatient (AMB) | payer OTHER, SELFPAY ==
[2024-08-14 11:41] VITALS: BP 146/92; PULSE 82; O2SAT 96; BMI 53.6
--- NOTE | 2024-08-14 11:41 | A.OFFPC_ITS ---
Vital Signs 08/14/24 11:41 Height 6 ft 2 in Weight 417 lb 5.361 oz BMI 53.6 BP 146/92 H Blood Pressure Location Lt brachial Position Sitting Pulse 82 Pulse Source Pulse Oximeter Pulse Oximetry (%) 96 Oxygen Delivery Method Room Air Intake Visit Reasons: f/u HTN and DM 6-8 weeks Hspt Tutor Required: No Accompanied by: Self / Same As Patient Allergies clindamycin [CLINDAMYCIN] Allergy (Unknown, Verified 08/14/24 11:42) HIVES doxycycline [DOXYCYCLINE] Allergy (Unknown, Verified 08/14/24 11:42) HIVES Latex, Natural Rubber Adverse Reaction (Verified 08/14/24 11:42) Itching Medication List - Last Reconciled 08/14/24 by Melida García PA-C [abdominal pad dressing As directed] [delaney wrap bandage As directed] acetaminophen 1,000 mg PO Q8H PRN albuterol sulfate 90 mcg/actuation 2 puffs inhalation QID PRN amlodipine 5 mg See Protocol PO DAILY budesonide 90 mcg/actuation (Pulmicort Flexhaler) 1 inh inhalation BID cefuroxime axetil 500 mg PO BID [elastic stretch netting As directed for dressing changes ] furosemide (Lasix) 40 mg PO DAILY metformin 500 mg PO DAILY naproxen sodium (Aleve) 220 mg PO Q8H PRN Tobacco use date assessed: 08/14/24 Dental Screening Dental Screen Date: 08/14/24 Did you have a dental visit in the last 12 months?: No Did you have a dental problem in the last 6 months where you did not have access to dental care?: No Was dental information given to patient?: No HPI f/u HTN and DM 6-8 weeks HPI Details 38-year-old male with past medical histo ry of diabetes, hypertension, asthma, insomnia last seen 05/2024 coming in for follow up. Patient tells us today he did not take his blood pressure medication as he typically takes them around noon. He has not been monitoring his blood pressures at home as he does not have a blood pressure cuff. He states he has been cutting back on soda, sweets and candy and does continue to drink apple juice but we will usually cut it with water. He takes his Pulmicort twice daily and has not had to use his albuterol inhaler. He states the lesions on his legs have been improving and is no longer having pain in bilateral lower extremities. He still has been having issues with sleeping and is no longer taking the hydroxyzine as it caused him to feel groggy in the morning. He also mentions since losing weight and starting his current medications he is felt an improvement in his symptoms and is now able to walk without shortness of breath. [facility] Medical History Bilateral lower extremity edema Obesity Asthma Family History Maternal Grandfather Skin cancer Testicular cancer Social History Household Members: Family Housing: House Do you presently have visiting nurse or other home services: No Patient Tobacco Use Status: Never used Tobacco e-Cigarette/Vaping Use: Never Used Substance Use Type: Marijuana service: No Current occupational status: unemployed Cognitive needs: No Hearing needs: No Vision needs: No Questionnaire PHQ-9 Over the last 2 weeks, how often have you been bothered by any of the following problems? 1. Little interest or pleasure in doing things: several days 4. Feeling tired or having little energy: several days 5. Poor appetite or overeating: more than half the days 6. Feeling bad about yourself - or that you are a failure or have let yourself or your family down: several days 7. Trouble concentrating on things, such as reading the newspaper or watching television: not at all 8. Moving or speaking so slowly that other people could have noticed. Or the opposite - being so fidgety or restless that you have been moving around a lot more than usual: not at all 9. Thoughts that you would be better off or of hurting yourself in some way: not at all Depression Screening Interpretation: Negative Depression Screening Done: Yes 22826 - PHQ-9 Billing: Yes Source: Developed by Drs. Kirill Hernandez, Carmen Glass, Bladimir Cesar and colleagues, with an educational carmen from [employer]. Thrive Questionnaire Date Thrive assessed: 08/14/24 I am a: Patient What is your living situation today?: I have a steady place to live Within the past 12 months, did the food you bought not last and you didn't have the money to get more?: Never true Within the past 12 months, did you worry whether your food would run out before you got money to buy more?: Never true Do you have trouble paying for medicines?: Yes Do you have trouble getting transportation to medical appointments?: No Do you have trouble paying your heating and electricity bill?: No Do you have trouble taking care of your child, family member or friend?: No Do you have trouble with day-to-day activities such as bathing, preparing meals, shopping, managing finances, etc.?: No Are you currently unemployed and looking for a job?: Yes Are you interested in more education?: No Please select the resources that you would like help with: Paying for medicine and Transportation Currently or been in a relationship where the following occur: No concerns reported THRIVE Score: 0 AUDIT C Alcohol Use Questionnaire (AUDIT-C) 1. How often do you have a drink containing alcohol?: Never 3. How often do you have six or more drinks on one occasion?: Never Total Score: 0 HARINDER-7 AMB Questionnaire HARINDER-7 Date HARINDER - 7 assessed: 08/14/24 Feeling nervous, anxious, or on edge: 1 = Several days Not being able to stop or control worryin = Not at all Worrying too much about different things: 0 = Not at all Trouble relaxin = Several days Being so restless that it is hard to sit still: 0 = Not at all Becoming easily annoyed or irritable: 0 = Not at all Feeling afraid as if something awful might happen: 0 = Not at all Total HARINDER-7 score (0-4 normal; 5-9 mild; 10-14 moderate; 15-21 severe): 2 Source: Developed by Drs. Kirill Hernandez, Carmen Glass, Bladimir Cesar and colleagues, with an educational carmen from [employer]. HARINDER-7 Assessment Billing HARINDER-7 Assessment Tool: HARINDER-7 Assessment 71631 Review of Systems Const Denies body aches, Denies chills, Denies fever(s), Denies headache(s) and Denies poor appetite Eyes Reports no additional complaints ENT Denies dysphagia, Denies dizziness, Denies headache(s) and Denies odynophagia Card Denies chest pain, Denies syncope, Denies edema, Denies irregular heart rhythm, Denies lightheadedness and Denies dyspnea Resp Denies cough and Denies dyspnea GI Denies abdominal pain, Denies constipation, Denies dysphagia, Denies diarrhea, Denies nausea, Denies odynophagia and Denies vomiting Reports no additional complaints Musc Reports no additional complaints and Denies abnormal gait Skin/Breast Reports system reviewed and no additional complaints, except as documented Neuro Denies abnormal gait, Denies dizziness, Denies syncope and Denies headache(s) Psych Reports no additional complaints Physical exam (Primary Care) Vital Signs: Last Vital Signs Pulse 82 08/14/24 11:41 BP 146/92 H 08/14/24 11:41 Pulse Ox 96 08/14/24 11:41 Oxygen Delivery Method Room Air 08/14/24 11:41 BMI result Body Mass Index 53.6 Tobacco/Smoking Status: Tobacco use Status Tobacco use date assessed 08/14/24 08/14/24 11:47 Patient Tobacco Use Status Never used Tobacco 08/14/24 11:47 e-Cigarette/Vaping Use Never Used 08/14/24 11:47 Depression Screening Interpretation: Negative Thrive Assessment: Date of Thrive Assessment Date Thrive assessed 08/14/24 08/14/24 11:47 Currently or been in a relationship where the following occur: No concerns reported Const General: cooperative, healthy appearing, comfortable and no acute distress Orientation/consciousness: patient oriented x3 HENMT Head: Yes normocephalic Ears: hearing grossly normal bilaterally General nose exam: Normal external nose present Eyes General: appearance normal, both eyes and all related structures Conjunctivae: conjunctivae normal Neck Neck: Yes full ROM and Yes no lymphadenopathy Resp Effort & Inspection: normal respiratory effort Auscultation: clear to auscultation bilaterally, no crackles, no rales, no rhonchi and no wheezes Cardio Rate: regular rate Rhythm: regular rhythm Skin General skin exam: no rashes or lesions noted Neuro General: patient oriented x3 Gait exam (Neuro): Normal gait present Extrem General: Yes normal to inspection, Yes full ROM and No edema Psych Affect: normal affect Attitude: cooperative Insight: Good insight present (Psych) Judgement: Good judgement present (Psych) Results AMB Hemoglobin A1c AMB Hemoglobin A1c 6.0 % Last Edit by NATHAN Foster on 08/14/24 12 :32 Coding Level of Care Code Est Pt Level 4 (76323) Diagnoses Insomnia, unspecified type G47.00 Insomnia type: unspecified Bilateral edema of lower extremity R60.0 Mild intermittent asthma without complication J45.20 Asthma severity: mild Asthma persistence: intermittent Asthma complication type: uncomplicated Hypertension I10 Hypertension type: essential hypertension Diabetes E11.628 Diabetes mellitus complication detail: with other skin complication Diabetes mellitus complication status: with skin complications Diabetes mellitus snf insulin use: without terminal superintendent use Diabetes mellitus type: type 2 Additional Codes HARINDER-7 Assessment Billing - HARINDER-7 Assessment Tool: HARINDER-7 Assessment 97131 ([id number]) PHQ-9 - 39941 - PHQ-9 Billing: Yes ([id number]) Assessment & Plan Assessment & Plan (1) Insomnia: Code(s): G47.00 - Insomnia, unspecified Category: Medical Qualifiers: Insomnia type: unspecified Qualified Code(s): G47.00 - Insomnia, unspecified Plan: Patient complaining of insomnia states the hydroxyzine did not work for him we will start on trazodone 50 mg as needed and follow up in 3 months (2) Bilateral edema of lower extremity: Code(s): R60.0 - Localized edema Category: Medical Plan: Improved since last visit. Patient no longer having open sores on bilateral lower extremities. Continue with good hydration of the legs and elevation as needed. (3) Asthma: Code(s): J45.909 - Unspecified asthma, uncomplicated Category: Medical Qualifiers: Asthma severity: mild Asthma persistence: intermittent Asthma complication type: uncomplicated Qualified Code(s): J45.20 - Mild intermittent asthma, uncomplicated Plan: Asthma currently controlled on present medications. Continue on Pulmicort b.i.d. and albuterol as needed. Avoid triggers such as allergies. (4) Hypertension: Code(s): I10 - Essential (primary) hypertension Category: Medical Qualifiers: Hypertension type: essential hypertension Qualified Code(s): I10 - Essential (primary) hypertension Plan: Continue on current blood pressure medication. Avoid salt intake and encourage healthy diet and regular exercise. Blood pressure mildly elevated today 146/92 patient did not take his amlodipine this morning. Encouraged patient to begin taking amlodipine 1st thing in the morning instead of mid day. Also advised patient to begin taking blood pressure at home sent prescription for blood pressure cuff and gave patient parameters and when to return to clinic and reach out to the office. (5) Diabetes: Code(s): E11.9 - Type 2 diabetes mellitus without complications Category: Medical Qualifiers: Diabetes mellitus complication detail: with other skin complication Diabetes mellitus complication status: with skin complications Diabetes mellitus terminal superintendent insulin use: without terminal superintendent use Diabetes mellitus type: type 2 Qualified Code(s): E11.628 - Type 2 diabetes mellitus with other skin complications Plan: Decrease the amount of carbohydrates such as pasta, bread, rice, and potatoes and limit the amount of sweets. Although fruits are generally healthy they should be eaten in moderation as they are still high in sugar. Hemoglobin A1c goal of less than 7%. Patient currently on metformin 500 mg daily. A1c in the clinic today 6.0% denies any symptoms of hypoglycemia. Continue on current drug management. Plan This note was constructed using voice recognition software. While every effort has been made to ensure accuracy and single needle operator, still areas may have been included sometimes these areas may affect the content or meeting of the given symptoms. Total time spent caring for the patient today was 30 minutes. This includes time spent before the visit reviewing the chart, time spent during the visit, and time spent after the visit and documentation. Orders: Orders AMB Hemoglobin A1c Today Z13.9 - Encounter for screening, unspecified Medications: New trazodone 50 mg PO BEDTIME PRN 30 tabs 2RF sleep blood pressure kit-extra large As directed 1 ea 0RF blood pressure kit-extra large As directed 1 ea 0RF
== END 2024-08-14 12:20 | disposition home or self-care (01) ==
LOC: HO.HMCH 11:34
DX: G47.00 Insomnia, unspecified (principal); E11.628 Type 2 diabetes mellitus with other skin complications; R60.0 Localized edema; J45.20 Mild intermittent asthma, uncomplicated; I10 Essential (primary) hypertension

== ENCOUNTER → 2024-08-14 11:34 | Outpatient (BNVA) | payer OTHER, SELFPAY | DX: G47.00 Insomnia, unspecified (principal); R60.0 Localized edema; J45.20 Mild intermittent asthma, uncomplicated; I10 Essential (primary) hypertension; E11.628 Type 2 diabetes mellitus with other skin complications | CPT/HCPCS: 83036; 96127; 99212 ==